=== PATIENT | male | born 1995 | race American Indian/Alaskan Native ===

== ENCOUNTER 2016-10-02 17:46 | Emergency (ER) | payer OTHER ==
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
[2016-10-03] MEDS ORDERED: NACL 0.9% 250ML 250 ML IV ONE (03:48)
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
[2016-10-03] MEDS ORDERED: TYLENOL #3 PO ONE (04:34)
[2016-10-03 05:16] VITALS: BP 145/86
[2016-10-03 05:45] LABS: Bilirubin,Urine NEG (Negative); Blood,Urine NEG (Negative); Ketones,Urine 20 mg/dL (Negative); Leukocyte Esterase,Urine NEG (Negative); Nitrite,Urine NEG (Negative); Protein,Urine <15 mg/dL mg/dL (Negative); Urobilinogen,Urine < 2.0 mg/dL (<2.0)
[2016-10-03 06:52] LABS: Basophils % (Auto) 0.5 % (0.0-1.8); Eosinophils % (Auto) 3.6 % (0.0-4.3); Hematocrit 47.1 % (35.5-45.6); Hemoglobin 15.5 gm/dl (11.8-15.2); Mean Corpuscular HGB Conc 33 % (32-34); Mean Corpuscular Hemoglobin 29 pg (28-32); Mean Corpuscular Volume 89 fl (84-94); Platelet Count 186 K/mm3 (140-440); Red Blood Count 5.33 M/mm3 (3.65-5.03); Red Cell Distribution Width 14.2 % (13.2-15.2); White Blood Count 6.9 K/mm3 (4.5-11.0)
[2016-10-03 06:54] LABS: Anion Gap 17 mmol/L; B-Hydroxybutyrate 10.7 mg/dL (0.2-2.8); BUN/Creatinine Ratio 14.28; Blood Urea Nitrogen 10 mg/dL (9-20); Calcium 8.4 mg/dL (8.4-10.2); Carbon Dioxide 25 mmol/L (22-30); Chloride 92.6 mmol/L (98-107); Glucose 401 mg/dL (75-100); Potassium 4.4 mmol/L (3.6-5.0); Sodium 130 mmol/L (137-145)
== END 2016-10-03 07:08 | disposition home or self-care (01) ==
LOC: ED 17:46
DX: S16.1XXA Strain of muscle, fascia and tendon at neck level, initial encounter (principal); S20.219A Contusion of unspecified front wall of thorax, initial encounter; E10.9 Type 1 diabetes mellitus without complications; F17.200 Nicotine dependence, unspecified, uncomplicated; Z79.4 Long term (current) use of insulin; V47.5XXA Car driver injured in collision with fixed or stationary object in traffic accident, initial encounter; Y93.89 Activity, other specified; Y99.8 Other external cause status; Y92.89 Other specified places as the place of occurrence of the external cause
CPT/HCPCS: 36415; 71020; 80048; 81001; 82010; 82805; 82962; 85025; 93005; 93010; 96372; 99284; J7050; J1815

== ENCOUNTER 2021-07-10 21:14 | Inpatient (IN) | payer SELFPAY ==
[2021-07-10] MEDS ORDERED: HALOPERIDOL LACTATE 5 MG/1 ML INJ IM PRN (21:21)
[2021-07-10] MEDS ORDERED: LORazepam 2 MG/ML VIAL IM PRN (21:21)
--- NOTE | 2021-07-10 21:22 | Emergency Department Report ---
ED General Adult HPI - General Chief complaint: Alcohol Stated complaint: ETOH Time Seen by Provider: 07/10/21 21:20 Source: patient, EMS (Verbal report received from emergency medical services. EMS documentation not available at time of chart dictation ), RN notes reviewed, old records reviewed Mode of arrival: Stretcher Limitations: Altered Mental Status - History of Present Illness Initial comments: The patient was evaluated in the emergency department for symptoms described in the history of present illness. He/she was evaluated in the context of the global COVID-19 pandemic, which necessitated consideration that the patient might be at risk for infection with the virus that causes COVID-19. Institutional protocols and algorithms that pertain to the evaluation of patients at risk for COVID-19 are in a state of rapid change based on info rmation released by regulatory bodies including the CDC and federal and state organizations. These policies and algorithms were followed during the patient's care in the emergency department. Please note that these policies, procedures and recommendations changed on a rapid basis. The patient is a 25-year-old gentleman. He is brought to the hospital by emergency medical services with an EMS articulated complaint of altered mental status and alcohol intoxication. History obtained from EMS as the patient is intoxicated. EMS states that the patient is visiting from [facility], and he was found in the hallway, drunk. It is not known who contacted 911. EMS reports normal vital signs in the field, and normal Accu-Chek in the field. In the emergency room, initially, the patient is awake, but intoxicated, belligerent, and uncooperative. The patient does not have decision-making capac ity. We attempted to try to de-escalate the patient verbally, and through show force. This is unsuccessful. Patient required medication with haloperidol and Ativan to allow for acquisition of time sensitive diagnostics, to exclude intracranial injury, and cervical spine injury, as as well as to exclude toxicologic ingestions that would be time sensitive. In spite of receiving haloperidol and Ativan, patient remained agitated, belligerent, and was pulling off leads, pulling off monitor strips, and presented in obvious danger to himself and other people. He is therefore medicated with Geodon. After receiving Geodon, the patient still continued to wrestle with the monitor strips, pull off leads, and also began to desaturate. He was therefore emergently intubated by myself using RSI techniques. Please see my intubation note. Shortly after intubation, after paralysis wore off, patient became very agitated, pulling, tugging, and disconnected his ET tube from the ventilator circuit. He was emergently medicated with 200 mg of propofol in total, appropriately sedated, repeat beta laryngoscopy is performed, and confirms appropriate placement of endotracheal tube. Patient now intubated, sedated, in no acute distress. The patient is not accompanied by a friend or family at this time for collateral information or additional information. -: This evening - Related Data Previous Rx's Medication Instructions Recorded Last Taken Type Insulin NPH/Regular [NovoLIN 70/30] 25 unit SUB-Q BIDDIAB 30 Days 09/12/16 Unknown Rx units Cyclobenzaprine [Flexeril] 10 mg PO TID PRN #20 tablet 10/03/16 Unknown Rx HYDROcodone/APAP 5-325 [[place] 1 - 2 each PO Q6HR PRN #14 tablet 10/03/16 Unknown Rx 5/325] Ibuprofen [Motrin] 800 mg PO Q8HR PRN #30 tablet 10/03/16 Unknown Rx Allergies Allergy/AdvReac Type Severity Reaction Status Date / Time No Known Allergies Allergy Verified 07/10/21 21:31 ED Review of Systems ROS: Stated complaint: ETOH Other details as noted in HPI Comment: Unobtainable due to pts medical conditions ED Past Medical Hx - Past Medical History Hx Congestive Heart Failure: No Hx Diabetes: Yes Hx Asthma: No Hx COPD: No - Social History Smoking Status: Current Every Day Smoker - Medications Home Medications: Home Medications Medication Instructions Recorded Confirmed Last Taken Type Insulin NPH/Regular [NovoLIN 70/30] 25 unit SUB-Q BIDDIAB 30 Days 09/12/16 Unknown Rx units Cyclobenzaprine [Flexeril] 10 mg PO TID PRN #20 tablet 10/03/16 Unknown Rx HYDROcodone/APAP 5-325 [[place] 1 - 2 each PO Q6HR PRN #14 tablet 10/03/16 Unkno wn Rx 5/325] Ibuprofen [Motrin] 800 mg PO Q8HR PRN #30 tablet 10/03/16 Unknown Rx ED Physical Exam - General Limitations: Altered Mental Status, Other (Intoxication) General appearance: appears intoxicated, anxious - Head Head exam: Present: atraumatic, normocephalic - Eye Eye exam: Present: normal appearance, EOMI. Absent: nystagmus - ENT ENT exam: Present: normal exam, normal orophraynx, mucous membranes moist, normal external ear exam, other (Copious secretions noted in the oropharynx) - Neck Neck exam: Present: normal inspection, full ROM. Absent: tenderness, meningismus - Respiratory Respiratory exam: Present: rhonchi. Absent: wheezes, rales, stridor - Cardiovascular Cardiovascular Exam: Present: normal rhythm, tachycardia, normal heart sounds. Absent: bradycardia, irregular rhythm, systolic murmur, diastolic murmur, rubs, gallop - GI/Abdominal GI/Abdominal exam: Present: soft. Absent: distended, tenderness, guarding, rebound, rigid, pulsatile mass - Rectal Rectal exam: Present: deferred - Extremities Exam Extremities exam: Present: normal inspection, full ROM, normal capillary refill, other (2+ pulses noted in the bilateral upper and lower extremities. There is no palpable cord. negative Homans sign. Muscular compartments are soft. The pelvis is stable.). Absent: pedal edema, calf tenderness - Back Exam Back exam: Present: normal inspection. Absent: tenderness, CVA tenderness (R), CVA tenderness (L), paraspinal tenderness, vertebral tenderness - Neurological Exam Neurological exam: Present: altered, other (Patient is awake, agitated, yelling and screaming, moving 4 extremities, pulling off monitor leads, blood pressure cuff and pulse ox.) - Psychiatric Psychiatric exam: Present: agitated, anxious - Skin Skin exam: Present: warm, dry, intact, normal color. Absent: rash ED Course Vital Signs 07/10/21 07/10/21 07/10/21 22:30 22:45 23:00 Temperature Pulse Rate 110 H 117 H Respiratory 24 32 H Rate Blood Pressure 139/68 143/68 134/71 O2 Sat by Pulse 95 86 Oximetry 07/10/21 07/10/21 07/10/21 23:15 23:31 23:35 Temperature 97.7 F Pulse Rate 101 H 106 H Respiratory 34 H 15 Rate Blood Pressure 151/79 144/79 O2 Sat by Pulse 88 98 Oximetry 07/10/21 07/11/21 07/11/21 23:45 00:00 00:15 Temperature Pulse Rate 97 H 96 H 92 H Respiratory 24 24 24 Rate Blood Pressure 142/73 142/73 155/88 O2 Sat by Pulse 98 98 96 Oximetry 07/11/21 07/11/21 07/11/21 00:45 01:00 01:15 Temperature Pulse Rate 100 H 103 H 96 H Respiratory 24 24 24 Rate Blood Pressure 142/73 76/34 98/41 O2 Sat by Pulse 95 96 Oximetry 07/11/21 07/11/21 07/11/21 01:43 01:45 02:01 Temperature Pulse Rate 84 85 95 H Respiratory 12 12 Rate Blood Pressure 98/41 108/46 98/41 O2 Sat by Pulse 98 96 95 Oximetry 07/11/21 07/11/21 07/11/21 02:15 02:31 02:45 Temperature Pulse Rate 90 86 85 Respiratory 22 22 22 Rate Blood Pressure 102/48 112/53 108/54 O2 Sat by Pulse 95 98 99 Oximetry 07/11/21 07/11/21 07/11/21 03:01 03:15 03:31 Temperature Pulse Rate 84 82 83 Respiratory 22 22 22 Rate Blood Pressure 114/57 105/47 110/50 O2 Sat by Pulse 99 99 99 Oximetry 07/11/21 07/11/21 07/11/21 03:45 04:00 04:01 Temperature Pulse Rate 82 83 82 Respiratory 22 22 Rate Blood Pressure 101/46 110/50 99/43 O2 Sat by Pulse 99 99 100 Oximetry 07/11/21 07/11/21 07/11/21 04:15 04:31 04:45 Temperature Pulse Rate 81 82 81 Respiratory 22 22 22 Rate Blood Pressure 98/45 96/49 98/48 O2 Sat by Pulse 100 100 100 Oximetry 07/11/21 07/11/21 07/11/21 05:01 05:15 05:45 Temperature Pulse Rate 80 80 81 Respiratory 22 22 22 Rate Blood Pressure 108/54 106/49 114/63 O2 Sat by Pulse 100 100 100 Oximetry 07/11/21 07/11/21 07/11/21 06:01 06:15 06:31 Temperature Pulse Rate 82 80 80 Respiratory 22 22 22 Rate Blood Pressure 107/64 105/56 101/53 O2 Sat by Pulse 100 100 100 Oximetry 07/11/21 07/11/21 07/11/21 07:01 07:15 07:31 Temperature Pulse Rate 80 80 80 Respiratory 22 22 22 Rate Blood Pressure 102/49 104/51 103/52 O2 Sat by Pulse 100 100 100 Oximetry 07/11/21 07/11/21 07/11/21 07:45 08:01 08:15 Temperature Pulse Rate 79 78 80 Respiratory 22 22 22 Rate Blood Pressure 102/47 101/50 101/49 O2 Sat by Pulse 98 100 99 Oximetry 07/11/21 07/11/21 07/11/21 08:31 08:45 09:01 Temperature 97.7 F Pulse Rate 78 84 88 Respiratory 22 23 22 Rate Blood Pressure 105/52 103/46 119/55 O2 Sat by Pulse 99 98 95 Oximetry 07/11/21 07/11/21 09:21 10:00 Temperature Pulse Rate 78 88 Respiratory 22 Rate Blood Pressure 105/52 107/46 O2 Sat by Pulse 98 97 Oximetry - ABG Interpretation Ph: 7.381 PCO2: 30.4 PO2: 213 Bicarbonate: 17.6 Interpretation: abnormal, metabolic acidosis (Metabolic acidosis with respiratory compensation) - Intubation Time Out Performed: No (Emergency situation) Sedative: Etomidate Mg Given: 20 Paralytic: Rocuronium Mg Given: 100 Laryngoscope: fiberoptic video scope Size: 4 ET Tube Size: 7.5 Tube Secured Depth (cm): 23 Tube Secured Location: teeth Tube Placement Confirmation: visualized tube passing t, equal breath sounds bilat, no breath sounds over epi, confirmation by capnometr Patient Tolerated Procedure: well Intubation Complications: none ED Medical Decision Making - Lab Data Result diagrams: 07/12/21 04:25 07/12/21 04:25 Vital Signs 07/10/21 07/10/21 07/10/21 22:30 22:45 23:45 Pulse Rate 110 H 117 H 102 H Respiratory 26 H 32 H Rate Blood Pressure 139/68 143/68 101/56 O2 Sat by Pulse 96 Oximetry Lab Results 07/10/21 07/10/21 07/10/21 Range/Units 23:38 23:38 23:38 WBC 7.9 (4.5-11.0) K/mm3 RBC 5.19 H (3.65-5.03) M/mm3 Hgb 15.2 (11.8-15.2) gm/dl Hct 45.6 (35.5-45.6) % MCV 88 (84-94) fl MCH 29 (28-32) pg MCHC 33 (32-34) % RDW 14.0 (13.2-15.2) % Plt Count 271 (140-440) K/mm3 Lymph % (Auto) 37.8 H (13.4-35.0) % [place] % (Auto) 5.4 (0.0-7.3) % Eos % (Auto) 1.6 (0.0-4.3) % Baso % (Auto) 0.4 (0.0-1.8) % Lymph # (Auto) 3.0 (1.2-5.4) K/mm3 [place] # (Auto) 0.4 (0.0-0.8) K/mm3 Eos # (Auto) 0.1 (0.0-0.4) K/mm3 Baso # (Auto) 0.0 (0.0-0.1) K/mm3 Seg Neutrophils % 54.8 (40.0-70.0) % Seg Neutrophils # 4.3 (1.8-7.7) K/mm3 PT 13.0 (12.2-14.9) Sec. INR 0.88 (0.87-1.13) Sodium 141 (137-145) mmol/L Potassium 3.3 L (3.6-5.0) mmol/L Chloride 102.8 (98-107) mmol/L Carbon Dioxide 24 (22-30) mmol/L Anion Gap 18 mmol/L BUN 13 (9-20) mg/dL Creatinine 0.7 L (0.8-1.3) mg/dL Estimated GFR > 60 ml/min BUN/Creatinine Ratio 19 % Glucose 50 L (75-100) mg/dL Calcium 8.6 (8.4-10.2) mg/dL Magnesium 1.90 (1.7-2.3) mg/dL Total Bilirubin 0.40 (0.1-1.2) mg/dL AST 44 H (5-40) units/L ALT 28 (7-56) units/L Alkaline Phosphatase 95 (35-129) units/L Total Creatine Kinase 1282 H (55-170) units/L Total Protein 7.1 (6.3-8.2) g/dL Albumin 4.4 (3.9-5) g/dL Albumin/Globulin Ratio 1.6 % Lipase 13 (13-60) units/L Salicylates (2.8-20.0) mg/dL Acetaminophen (10.0-30.0) ug/mL Plasma/Serum Alcohol (0-0.07) % 07/10/21 07/10/21 07/10/21 Range/Units 23:38 23:38 23:38 WBC (4.5-11.0) K/mm3 RBC (3.65-5.03) M/mm3 Hgb (11.8-15.2) gm/dl Hct (35.5-45.6) % MCV (84-94) fl MCH (28-32) pg MCHC (32-34) % RDW (13.2-15.2) % Plt Count (140-440) K/mm3 Lymph % (Auto) (13.4-35.0) % [place] % (Auto) (0.0-7.3) % Eos % (Auto) (0.0-4.3) % Baso % (Auto) (0.0-1.8) % Lymph # (Auto) (1.2-5.4) K/mm3 [place] # (Auto) (0.0-0.8) K/mm3 Eos # (Auto) (0.0-0.4) K/mm3 Baso # (Auto) (0.0-0.1) K/mm3 Seg Neutrophils % (40.0-70.0) % Seg Neutrophils # (1.8-7.7) K/mm3 PT (12.2-14.9) Sec. INR (0.87-1.13) Sodium (137-145) mmol/L Potassium (3.6-5.0) mmol/L Chloride (98-107) mmol/L Carbon Dioxide (22-30) mmol/L Anion Gap mmol/L BUN (9-20) mg/dL Creatinine (0.8-1.3) mg/dL Estimated GFR ml/min BUN/Creatinine Ratio % Glucose (75-100) mg/dL Calcium (8.4-10.2) mg/dL Magnesium (1.7-2.3) mg/dL Total Bilirubin (0.1-1.2) mg/dL AST (5-40) units/L ALT (7-56) units/L Alkaline Phosphatase (35-129) units/L Total Creatine Kinase (55-170) units/L Total Protein (6.3-8.2) g/dL Albumin (3.9-5) g/dL Albumin/Globulin Ratio % Lipase (13-60) units/L Salicylates < 0.3 L (2.8-20.0) mg/dL Acetaminophen 5.0 L (10.0-30.0) ug/mL Plasma/Serum Alcohol 0.34 H (0-0.07) % - EKG Data -: EKG Interpreted by Md EKG shows normal: sinus rhythm - EKG Data 07/11/21 02:16 EKG is interpreted at 22: 23 Sinus rhythm, tachycardia, normal axis, normal P wave axis, rate 109 bpm. QTC prolonged, 470 ms. High left ventricular voltage. Abnormal EKG. Not a STEMI. - Radiology Data Radiology results: report reviewed, image reviewed CHEST 1 VIEW 07/10/2021 10:43 PM INDICATION / CLINICAL INFORMATION: post intubation. COMPARISON: None available. FINDINGS: SUPPORT DEVICES: NG tube extends within the stomach ET tube is satisfactory in position HEART / MEDIASTINUM: No significant abnormality. LUNGS / PLEURA: Mild increased interstitial prominence and opacities in bilateral lungs No pneumothorax. Signer Name: Huseyin Soto MD Signed: 07/10/2021 10:51 PM Workstation Name: [id number] CHEST 1 VIEW 07/10/2021 10:43 PM INDICATION / CLINICAL INFORMATION: post intubation. COMPARISON: None available. FINDINGS: SUPPORT DEVICES: NG tube extends within the stomach ET tube is satisfactory in position HEART / MEDIASTINUM: No significant abnormality. LUNGS / PLEURA: Mild increased int erstitial prominence and opacities in bilateral lungs No pneumothorax. Signer Name: Huseyin Soto MD Signed: 07/10/2021 10:51 PM Workstation Name: [id number] CT cervical spine wo con, CT head/brain wo con INDICATION / CLINICAL INFORMATION: Alcohol Intoxication. TECHNIQUE: Axial, coronal and sagittal images All CT scans at this location are performed using CT dose reduction for ALARA by means of automated exposure control. COMPARISON: None available. FINDINGS: Head: There is right frontal scalp hematoma. No acute intracranial hemorrhage. No midline shift or mass effect. No extra-axial fluid collection is seen. Ventricles are normal in size and appearance. Orbital globes appear int act. There is ethmoid sinus disease. No acute fracture is seen. Visualized orbits appear normal. Cervical spine: Cervical spine alignment appears normal. Facets are well aligned throughout. No prevertebral soft tissue swelling is seen. Odontoid and skull base appear normal. IMPRESSION: 1. No acute findings are seen in the cervical spine. 2. Small frontal scalp hematoma. No acute intracranial hemorrhage. No acute fracture. Signer Name: Huseyin Soto MD Signed: 07/11/2021 12:53 AM Workstation Name: [id number] - Medical Decision Making Differential diagnosis, including but not limited to: Alcohol intoxication, cervical spine injury, intracranial injury, aspiration pneumonia/pneumonitis, hypoglycemia, electrolyte derangement, rhabdomyolysis Assessment and plan: 25-year-old gentleman, presenting with alcohol intoxication, belligerent, uncooperative and violent behavior, requiring medication with haloperidol, Ativan, and subsequently Geodon. Patient subse quently required intubation for airway protection. Laboratory studies remarkable for elevated blood alcohol level, rhabdomyolysis with elevated CK, and glucose of 50, as well as hypokalemia. Noncontrast CT scan of the brain and cervical spine showed no acute findings. X-ray of the chest suggests aspiration pneumonia/pneumonitis. Patient is placed on D5 half-normal, with Accu-Cheks every 1 hour. He will be medicated empirically with fluids, potassium supplementation, banana bag, ceftriaxone and azithromycin. He will require supportive care. Contacted critical care physician on-call, Dr. COLVIN, As well as hospital physician, Dr. Maury Montaño Discussed the patient's history, physical, laboratory studies, imaging studies, clinical impression, and recommended course of action. The aforementioned critical care physician agrees with placement to the intensive care unit. The aforementioned hospital physician agrees to admit this patient to the medical service. At the moment, the patient is not accompanied by friends or family at this time for additional information and collateral information. Critical Care Time: Yes Critical care time in (mins) excluding proc time.: 60 Critical care attestation.: If time is entered above; I have spent that time in minutes in the direct care of this critically ill patient, excluding procedure time. ED Disposition Clinical Impression: Acute alcohol intoxication, Closed head injury, Alcohol abuse, Hypokalemia, Hypoglycemia, Elevated CK Disposition: 09 ADMITTED INPATIENT Is pt being admited?: Yes Does the pt Need Aspirin: No Condition: Critical
[2021-07-10] MEDS ORDERED: ZIPRASIDONE MESYLATE 20 MG VIAL IM PRN (21:53)
[2021-07-10] MEDS ORDERED: ROCURONIUM 50 MG/5 ML INJ IV ONE ×3 (23:16→23:47)
[2021-07-10] MEDS ORDERED: ETOMIDATE 20 MG/10 ML INJ IV ONE ×2 (23:16→23:47)
[2021-07-10] MEDS ORDERED: fentaNYL DRIP Premix 2,000 MCG/100 ML BAG IV SCH (23:45)
[2021-07-10] MEDS ORDERED: LIP THERAPY VASELINE TP PRN (23:46)
[2021-07-10] MEDS ORDERED: fentaNYL 100 MCG/2 ML INJ IV PRN (23:46)
[2021-07-10] MEDS ORDERED: MINERAL OIL/PETROLATUM, WHITE OPHTH OINT 3.5 GM OU PRN (23:46)
[2021-07-10] MEDS ORDERED: LACTATED RINGERS 1,000 ML IV ONE (23:47)
[2021-07-10 23:52] LABS: Basophils % (Auto) 0.4 % (0.0-1.8); Eosinophils # (Auto) 0.1 K/mm3 (0.0-0.4); Eosinophils % (Auto) 1.6 % (0.0-4.3); Hematocrit 45.6 % (35.5-45.6); Hemoglobin 15.2 gm/dl (11.8-15.2); Lymphocytes % (Auto) 37.8 % (13.4-35.0); Mean Corpuscular HGB Conc 33 % (32-34); Mean Corpuscular Volume 88 fl (84-94); Monocytes # (Auto) 0.4 K/mm3 (0.0-0.8); Monocytes % (Auto) 5.4 % (0.0-7.3); Platelet Count 271 K/mm3 (140-440); Red Blood Count 5.19 M/mm3 (3.65-5.03)
--- NOTE | 2021-07-10 23:55 | XRay Report ---
CHEST 1 VIEW 07/10/2021 10:43 PM INDICATION / CLINICAL INFORMATION: post intubation. COMPARISON: None available. FINDINGS: SUPPORT DEVICES: NG tube extends within the stomach ET tube is satisfactory in position HEART / MEDIASTINUM: No significant abnormality. LUNGS / PLEURA: Mild increased interstitial prominence and opacities in bilateral lungs No pneumothor ax. Signer Name: Huseyin Soto MD Signed: 07/10/2021 11:51 PM Workstation Name: [id number]
[2021-07-11 00:04] LABS: INR 0.88 (0.87-1.13)
[2021-07-11 00:18] LABS: Alanine Aminotransferase 28 units/L (7-56); Albumin 4.4 g/dL (3.9-5); Blood Urea Nitrogen 13 mg/dL (9-20); Calcium 8.6 mg/dL (8.4-10.2); Hemolysis Index 40
[2021-07-11 00:20] LABS: BUN/Creatinine Ratio 19
[2021-07-11] MEDS ORDERED: propofoL 200 MG/20 ML VIAL IV ONE ×2 (00:26→00:34)
[2021-07-11] MEDS ORDERED: ETOMIDATE 20 MG/10 ML INJ IV ONE (00:27)
[2021-07-11] MEDS ORDERED: ROCURONIUM 50 MG/5 ML INJ IV ONE (00:28)
[2021-07-11] MEDS ORDERED: LACTATED RINGERS 1,000 ML IV ONE (00:34)
[2021-07-11] MEDS ORDERED: KETAMINE 500 MG/5 ML VIAL MDV IV ONE (00:34)
--- NOTE | 2021-07-11 01:11 | XRay Report ---
CHEST 1 VIEW 07/11/2021 12:01 AM INDICATION / CLINICAL INFORMATION: s/p ett repositioning. COMPARISON: None available. FINDINGS: ET tube tip is about 5 cm above the jone. Mild increased pulmonary vascularity Signer Name: Huseyin Soto MD Signed: 07/11/2021 1:07 AM Workstation Name: [id number]
[2021-07-11] MEDS ORDERED: DEXTROSE 50% IN WATER (25GM) 50 ML SYRINGE IV ONE (01:15)
[2021-07-11] MEDS ORDERED: DEXTROSE 50% IN WATER (25GM) 50 ML SYRINGE IV PRN (01:15)
--- NOTE | 2021-07-11 01:57 | Cat Scan Report ---
CT cervical spine wo con, CT head/brain wo con INDICATION / CLINICAL INFORMATION: Alcohol Intoxication. TECHNIQUE: Axial, coronal and sagittal images All CT scans at this location are performed using CT dose reductio n for ALARA by means of automated exposure control. COMPARISON: None available. FINDINGS: Head: There is right frontal scalp hematoma. No acute intracranial hemorrhage. No midline shift or mass eff ect. No extra-axial fluid collection is seen. Ventricles are normal in size and appearance. Orbital g lobes appear intact. There is ethmoid sinus disease. No acute fracture is seen. Visualized orbits huber ear normal. Cervical spine: Cervical spine alignment appears normal. Facets are well aligned throughout. No prevertebral soft tis juan antonio swelling is seen. Odontoid and skull base appear normal. IMPRESSION: 1. No acute findings are seen in the cervical spine. 2. Small frontal scalp hematoma. No acute intracranial hemorrhage. No acute fracture. Signer Name: Huseyin Soto MD Signed: 07/11/2021 1:53 AM Workstation Name: [id number]
[2021-07-11] MEDS: POTASSIUM CHLORIDE 10 MEQ 10 MEQ/100 ML BAG IV SCH ×4 (02:08→05:44)
[2021-07-11] MEDS ORDERED: AZITHROMYCIN/NS 500 MG/250 ML 500 MG/250 ML BAG IV ONE (02:09)
[2021-07-11] MEDS ORDERED: THIAMINE 100 MG, FOLIC ACID 1 MG, MULTIPLE VITAMIN INJ, ADULT 10 ML in SODIUM CHLORIDE ... IV ONE (02:09)
[2021-07-11] MEDS: D5W/0.45% NACL 1,000 ML IV SCH ×3 (02:19→14:42)
[2021-07-11] MEDS: cefTRIAXone/NS 1 GM/50 ML 1 GM/50 ML BAG IV ONE ×2 (02:38→02:44)
[2021-07-11 02:58] LABS: Bilirubin,Urine NEG (Negative); Blood,Urine SM (Negative); Color,Urine Yellow (Yellow); Mucus,Urine FEW /HPF; Protein,Urine <15 mg/dL mg/dL (Negative); RBC,Urine < 1.0 /HPF (0.0-6.0); Urobilinogen,Urine < 2.0 mg/dL (<2.0); WBC,Urine < 1.0 /HPF (0.0-6.0)
[2021-07-11] MEDS ORDERED: ACETAMINOPHEN 650 MG RECT SUPP PR PRN (02:58)
[2021-07-11] MEDS ORDERED: MORPHINE 4 MG/1 ML INJ IV PRN (02:58)
[2021-07-11] MEDS ORDERED: MAGNESIUM HYDROXIDE (MOM) ORAL LIQD UDC PO PRN (02:58)
[2021-07-11] MEDS ORDERED: ONDANSETRON 4 MG/2 ML INJ IV PRN (02:58)
[2021-07-11 03:06] LABS: Amphetamine Screen,Urine Negative; Benzodiazepines Screen,Urine Negative; Cocaine Screen,Urine Negative; Methadone Screen,Urine Negative; Opiate Screen,Urine Negative
--- NOTE | 2021-07-11 03:15 | History and Physical Report ---
History of Present Illness Date of examination: 07/11/21 Date of admission: 07/11/2021 Chief complaint: Altered mental status History of present illness: 25-year-old -[place]ian male brought into the emergency room by EMS in a for altered mental status and alcohol intoxication. Most of the history was obtained from the ER staff as patient has already been intubated. According to EMS patient was said to have been visiting from [facility] and he was found in the hallway drunk. Upon arrival in the emergency room he was found to be intoxicated, belligerent and uncooperative. He was given some Haldol and Ativan. He however started desaturating upon receiving Haldol, Ativan and subsequently Geodon. Patient was subsequently intubated. Work-up in the emergency room reveals elevated creatinine kinase and patient was also found to be hypoglycemic with blood glucose of about 50. Potassium level of 3.3. Chest x-ray reveals mild increased interstitial prominence and opacities in bilateral lungs. CT scan of the head reveals small frontal scalp hematoma no acute intracranial hemorrhage. CT scan of the thoracic spine was unremarkable. No family members were available during this history and physical. Past History Past Medical History: diabetes Social history: smoking (Current daily smoker) Family history: no significant family history Medications and Allergies Allergies Allergy/AdvReac Type Severity Reaction Status Date / Time No Known Allergies Allergy Verified 07/10/21 21:31 Home Medications Medication Instructions Recorded Confirmed Last Taken Type Insulin NPH/Regular [NovoLIN 70/30] 25 unit SUB-Q BIDDIAB 30 Days 09/12/16 Unknown Rx units Cyclobenzaprine [Flexeril] 10 mg PO TID PRN #20 tablet 10/03/16 Unknown Rx HYDROcodone/APAP 5-325 [[place] 1 - 2 each PO Q6HR PRN #14 tablet 10/03/16 Unknown Rx 5/325] Ibuprofen [Motrin] 800 mg PO Q8HR PRN #30 tablet 10/03/16 Unknown Rx Active Meds: Active Medications Acetaminophen (Acetaminophen 650 Mg Rect Supp) 650 mg DC Q6H PRN PRN Reason: Pain MILD(1-3)/Fever >100.5/HERRON Dextrose (Dextrose 50% In Water (25gm) 50 Ml Syringe) 50 ml IV Q30MIN PRN; Protocol PRN Reason: Hypoglycemia Enoxaparin Sodium (Enoxaparin 40 Mg/0.4 Ml Inj) 40 mg SUB-Q QDAY@2200 LENORA; Pr otocol Famotidine (Famotidine 20 Mg/2 Ml Inj) 20 mg IV BID LENORA Fentanyl (Fentanyl 100 Mcg/2 Ml Inj) 50 mcg IV Q10MIN PRN PRN Reason: ANALGESIA Haloperidol Lactate (Haloperidol Lactate 5 Mg/1 Ml Inj) 5 mg IM Q6HR PRN PRN Reason: Agitation Last Admin: 07/10/21 21:36 Dose: 5 mg Documented by: Hydrophilic Ointment (Lip Therapy Vaseline) 1 applic TP Q2HR PRN PRN Reason: Dry Lips Fentanyl Citrate (Fentanyl Drip Premix) 2,000 mcg in 100 mls @ 4.082 mls/hr IV TITR LENORA; Protocol Last Admin: 07/11/21 00:36 Dose: 1 mcg/kg/hr, 4.082 mls/hr Documented by: Propofol (Diprivan 10 Mg/Ml) 1,000 mg in 100 mls @ 2.449 mls/hr IV TITR LENORA; Protocol Last Admin: 07/11/21 00:14 Dose: 5 mcg/kg/min, 2.449 mls/hr Documented by: Potassium Chloride (Kcl 10meq/100ml) 10 meq in 100 mls @ 100 mls/hr IV Q1H LENORA Stop: 07/11/21 04:59 Last Admin: 07/11/21 02:08 Dose: 100 mls/hr Documented by: Dextrose/Sodium Chloride (D5/0.45ns) 1,000 mls @ 150 mls/hr IV DIRECT LENORA Last Admin: 07/11/21 02:19 Dose: 150 mls/hr Documented by: Thiamine HCl 100 mg/ Folic Acid 1 mg/ Multivitamins/Minerals 10 ml/ Sodium Chloride 1,011.2 mls @ 250 mls/hr IV ONCE ONE Stop: 07/11/21 06:11 Ceftriaxone Sodium (Rocephin/Ns 2 Gm/100 Ml) 2 gm in 100 mls @ 200 mls/hr IV Q24H LENORA; Protocol Azithromycin (Zithromax/Ns) 500 mg in 250 mls @ 250 mls/hr IV Q24H LENORA; Protocol Lorazepam (Lorazepam 2 Mg/Ml Vial) 2 mg IM Q4HR PRN PRN Reason: Agitation Last Admin: 07/10/21 21:35 Dose: 2 mg Documented by: Magnesium Hydroxide (Magnesium Hydroxide (Mom) Oral Liqd Udc) 30 ml PO Q4H PRN PRN Reason: Constipation Morphine Sulfate (Morphine 2 Mg/1 Ml Inj) 2 mg IV Q4H PRN PRN Reason: Pain, Moderate (4-6) Morphine Sulfate (Morphine 4 Mg/1 Ml Inj) 4 mg IV Q4H PRN PRN Reason: Pain , Severe (7-10) Multi-Ingred Cream/Lotion/Oil/Oint (Mineral Oil/Petrolatum, White Ophth Oint 3.5 Gm) 1 applic OU Q4HR PRN PRN Reason: Dry Eye(s) Ondansetron HCl (Ondansetron 4 Mg/2 Ml Inj) 4 mg IV Q8H PRN PRN Reason: Nausea And Vomiting Senna/Docusate Sodium (Sennosides/Docusate Sodium 8.6/50 Mg Tab) 1 tab FEEDTUBE BID LENORA Sodium Chloride (Sodium Chloride 0.9% 10 Ml Flush Syringe) 10 ml IV BID LENORA Sodium Chloride (Sodium Chloride 0.9% 10 Ml Flush Syringe) 10 ml IV PRN PRN PRN Reason: LINE FLUSH Ziprasidone (Ziprasidone Mesylate 20 Mg Vial) 10 mg IM Q2H PRN PRN Reason: Agitation Last Admin: 07/10/21 22:05 Dose: 10 mg Documented by: Review of Systems ROS unobtainable: due to endotracheal tube Exam - Constitutional Vitals: Temp Pulse Resp BP Pulse Ox 86 22 112/53 98 07/11/21 02:31 07/11/21 02:31 07/11/21 02:31 07/11/21 02:31 General appearance: Present: well-nourished, other (Intubated and sedated) - EENT Eyes: Present: PERRL, EOM intact. Absent: scleral icterus ENT: hearing intact, clear oral mucosa, dentition normal - Neck Neck: Present: supple, normal ROM - Respiratory Respiratory effort: other (Intubated) Respiratory: bilateral: other (Coarse breath sounds bilaterally) - Cardiovascular Rhythm: regular Heart Sounds: Present: S1 & S2. Absent: gallop, systolic murmur, diastolic murmur, rub, click - Extremities Extremities: no ischemia, pulses intact, pulses symmetrical, No edema, normal temperature, normal color, Full ROM Peripheral Pulses: within normal limits - Abdominal General gastrointestinal: Present: soft, non-tender, non-distended, normal bowel sounds. Absent: mass - Integumentary Integumentary: Present: clear, warm, dry, normal turgor. Absent: rash - Musculoskeletal Musculoskeletal: strength equal bilaterally - Psychiatric Psychiatric: cooperative - Neurologic Neurologic: CNII-XII intact, no focal deficits, other (Currently intubated and sedated) Results - Labs CBC & Chem 7: 07/10/21 23:38 07/10/21 23:38 Labs: Abnormal lab results 07/10/21 07/10/21 07/10/21 Range/Units 23:38 23:38 23:38 RBC 5.19 H (3.65-5.03) M/mm3 Lymph % (Auto) 37.8 H (13.4-35.0) % Potassium 3.3 L (3.6-5.0) mmol/L Creatinine 0.7 L (0.8-1.3) mg/dL Glucose 50 L (75-100) mg/dL POC Glucose (70-105) mg/dL AST 44 H (5-40) units/L Total Creatine Kinase 1282 H (55-170) units/L Salicylates (2.8-20.0) mg/dL Acetaminophen (10.0-30.0) ug/mL Plasma/Serum Alcohol 0.34 H (0-0.07) % 07/10/21 07/10/21 07/11/21 Range/Units 23:38 23:38 03:08 RBC (3.65-5.03) M/mm3 Lymph % (Auto) (13.4-35.0) % Potassium (3.6-5.0) mmol/L Creatinine (0.8-1.3) mg/dL Glucose (75-100) mg/dL POC Glucose 110 H (70-105) mg/dL AST (5-40) units/L Total Creatine Kinase (55-170) units/L Salicylates < 0.3 L (2.8-20.0) mg/dL Acetaminophen 5.0 L (10.0-30.0) ug/mL Plasma/Serum Alcohol (0-0.07) % Assessment and Plan - Patient Problems (1) Acute alcohol intoxication Current Visit: Yes Status: Acute Plan to address problem: Patient currently intubated and sedated Placed on IV fluid. We also placed on alcohol withdrawal protocol. (2) Elevated CK Current Visit: Yes Status: Acute Plan to address problem: We will monitor CK level and continue IV fluid. (3) Hypoglycemia Current Visit: Yes Status: Acute Plan to address problem: Patient placed on dextrose IV fluid. Will monitor Accu-Cheks. (4) Hypokalemia Current Visit: Yes Status: Acute Plan to address problem: Potassium will be repleted. We will monitor chemistry. (5) Aspiration pneumonitis Current Visit: Yes Status: Acute Plan to address problem: Checks history suspicious for aspiration pneumonia . We will place on empiric IV antibiotics. (6) DVT prophylaxis Current Visit: Yes Status: Acute Plan to address problem: Patient placed on subcutaneous Lovenox. (7) Full code status Current Visit: Yes Status: Acute Plan to address problem: Patient is full code
[2021-07-11 03:18] LABS: Cannabinoid Screen,Urine Positive
[2021-07-11 09:43] LABS: Hematocrit 39.9 % (35.5-45.6); Hemoglobin 13.2 gm/dl (11.8-15.2); Mean Corpuscular HGB Conc 33 % (32-34); Mean Corpuscular Volume 89 fl (84-94); Platelet Count 216 K/mm3 (140-440); Red Blood Count 4.49 M/mm3 (3.65-5.03); Red Cell Distribution Width 14.4 % (13.2-15.2)
[2021-07-11 09:58] LABS: Alanine Aminotransferase 23 units/L (7-56); Albumin 3.4 g/dL (3.9-5); Blood Urea Nitrogen 10 mg/dL (9-20); Calcium 7.6 mg/dL (8.4-10.2); Hemolysis Index 56
[2021-07-11 10:00] LABS: BUN/Creatinine Ratio 17
--- NOTE | 2021-07-11 11:59 | Consultation ---
History of Present Illness Consult date: 07/11/21 Requesting physician: NATALIA HERNANDEZ Reason for consult: other (Acute Respiratroy Failure; Acute toxic / Metabolic Encephalopathy) History of present illness: PULMONARY/CCM CONSULT NOTE (Full dictation # [id number]) Please see dictated notes for full details Past History Past Medical History: diabetes Social history: smoking (Current daily smoker) Family history: no significant family history Medications and Allergies Allergies Allergy/AdvReac Type Severity Reaction Status Date / Time No Known Allergies Allergy Verified 07/10/21 21:31 Home Medications Medication Instructions Recorded Confirmed Last Taken Type Insulin NPH/Regular [NovoLIN 70/30] 25 unit SUB-Q BIDDIAB 30 Days 09/12/16 Unknown Rx units Cyclobenzaprine [Flexeril] 10 mg PO TID PRN #20 tablet 10/03/16 Unknown Rx HYDROcodone/APAP 5-325 [[place] 1 - 2 each PO Q6HR PRN #14 tablet 10/03/16 Unknown Rx 5/325] Ibuprofen [Motrin] 800 mg PO Q8HR PRN #30 tablet 10/03/16 Unknown Rx Active Meds: Active Medications Acetaminophen (Acetaminophen 650 Mg Rect Supp) 650 mg GA Q6H PRN PRN Reason: Pain MILD(1-3)/Fever >100.5/HERRON Dextrose (Dextrose 50% In Water (25gm) 50 Ml Syringe) 50 ml IV Q30MIN PRN; Prot ocol PRN Reason: Hypoglycemia Enoxaparin Sodium (Enoxaparin 40 Mg/0.4 Ml Inj) 40 mg SUB-Q QDAY@2200 LENORA; Protocol Famotidine (Famotidine 20 Mg/2 Ml Inj) 20 mg IV BID LENORA Fentanyl (Fentanyl 100 Mcg/2 Ml Inj) 50 mcg IV Q10MIN PRN PRN Reason: ANALGESIA Glycopyrrolate (Glycopyrrolate 0.4 Mg/2 Ml Inj) 0.2 mg IV ONCE@1200 LENORA Stop: 07/11/21 16:00 Haloperidol Lactate (Haloperidol Lactate 5 Mg/1 Ml Inj) 5 mg IM Q6HR PRN PRN Reason: Agitation Last Admin: 07/10/21 21:36 Dose: 5 mg Documented by: Hydrophilic Ointment (Lip Therapy Vaseline) 1 applic TP Q2HR PRN PRN Reason: Dry Lips Fentanyl Citrate (Fentanyl Drip Premix) 2,000 mcg in 100 mls @ 4.082 mls/hr IV TITR LENORA; Protocol Last Admin: 07/11/21 00:36 Dose: 1 mcg/kg/hr, 4.082 mls/hr Documented by: Propofol (Diprivan 10 Mg/Ml) 1,000 mg in 100 mls @ 2.449 mls/hr IV TITR LENORA; Protocol Last Titration: 07/11/21 10:45 Dose: 30 mcg/kg/min, 14.696 mls/hr Documented by: Dextrose/Sodium Chloride (D5/0.45ns) 1,000 mls @ 150 mls/hr IV DIRECT LENORA Last Admin: 07/11/21 08:01 Dose: 150 mls/hr Documented by: Ceftriaxone Sodium (Rocephin/Ns 2 Gm/100 Ml) 2 gm in 100 mls @ 200 mls/hr IV Q24H LENORA; Protocol Azithromycin (Zithromax/Ns) 500 mg in 250 mls @ 250 mls/hr IV Q24H LENORA; Protocol Lorazepam (Lorazepam 2 Mg/Ml Vial) 2 mg IM Q4HR PRN PRN Reason: Agitation Last Admin: 07/10/21 21:35 Dose: 2 mg Documented by: Magnesium Hydroxide (Magnesium Hydroxide (Mom) Oral Liqd Udc) 30 ml PO Q4H PRN PRN Reason: Constipation Morphine Sulfate (Morphine 2 Mg/1 Ml Inj) 2 mg IV Q4H PRN PRN Reason: Pain, Moderate (4-6) Morphine Sulfate (Morphine 4 Mg/1 Ml Inj) 4 mg IV Q4H PRN PRN Reason: Pain , Severe (7-10) Multi-Ingred Cream/Lotion/Oil/Oint (Mineral Oil/Petrolatum, White Ophth Oint 3.5 Gm) 1 applic OU Q4HR PRN PRN Reason: Dry Eye(s) Ondansetron HCl (Ondansetron 4 Mg/2 Ml Inj) 4 mg IV Q8H PRN PRN Reason: Nausea And Vomiting Senna/Docusate Sodium (Sennosides/Docusate Sodium 8.6/50 Mg Tab) 1 tab FEEDTUBE BID LENORA Sodium Chloride (Sodium Chloride 0.9% 10 Ml Flush Syringe) 10 ml IV BID LENORA Sodium Chloride (Sodium Chloride 0.9% 10 Ml Flush Syringe) 10 ml IV PRN PRN PRN Reason: LINE FLUSH Ziprasidone (Ziprasidone Mesylate 20 Mg Vial) 10 mg IM Q2H PRN PRN Reason: Agitation Last Admin: 07/10/21 22:05 Dose: 10 mg Documented by: Physical Examination Vital signs: Vital Signs Pulse Resp BP Pulse Ox 110 H 26 H 139/68 95 07/10/21 22:30 07/10/21 22:30 07/10/21 22:30 07/10/21 22:30 Results - Laboratory Findings CBC and BMP: 07/11/21 08:38 07/11/21 08:38 PT/INR, D-dimer PT 13.0 Sec. (12.2-14.9) 07/10/21 23:38 INR 0.88 (0.87-1.13) 07/10/21 23:38 Abnormal lab findings: Abnormal Labs 07/10/21 07/10/21 07/10/21 23:38 23:38 23:38 RBC 5.19 H Lymph % (Auto) 37.8 H Potassium 3.3 L Creatinine 0.7 L Glucose 50 L POC Glucose Lactic Acid Calcium AST 44 H Total Creatine Kinase 1282 H Total Protein Albumin Salicylates Acetaminophen Plasma/Serum Alcohol 0.34 H 07/10/21 07/10/21 07/11/21 23:38 23:38 02:43 RBC Lymph % (Auto) Potassium Creatinine Glucose POC Glucose Lactic Acid 3.60 H* Calcium AST Total Creatine Kinase Total Protein Albumin Salicylates < 0.3 L Acetaminophen 5.0 L Plasma/Serum Alcohol 07/11/21 07/11/21 07/11/21 03:08 04:57 08:38 RBC Lymph % (Auto) Potassium Creatinine Glucose POC Glucose 110 H Lactic Acid 3.40 H* 3.50 H* Calcium AST Total Creatine Kinase Total Protein Albumin Salicylates Acetaminophen Plasma/Serum Alcohol 07/11/21 07/11/21 07/11/21 08:38 10:18 11:28 RBC Lymph % (Auto) Potassium Creatinine 0.6 L Glucose POC Glucose 61 L Lactic Acid 3.60 H* Calcium 7.6 L AST 42 H Total Creatine Kinase Total Protein 6.0 L Albumin 3.4 L Salicylates Acetaminophen Plasma/Serum Alcohol
[2021-07-11] MEDS ORDERED: GLYCOPYRROLATE 0.4 MG/2 ML INJ IV SCH (12:00)
[2021-07-11] MEDS ORDERED: INSULIN LISPRO 100 UNIT/ML SUB-Q SCH ×2 (16:00→18:00)
--- NOTE | 2021-07-11 16:44 | Consultation ---
DATE OF CONSULTATION: 07/11/2021 PULMONARY CRITICAL CARE CONSULT NOTE CONSULTING PHYSICIAN: Dr. Rupesh Otero. REASON FOR CONSULT: Acute respiratory failure, acute toxic metabolic encephalopathy. CHIEF COMPLAINT AND HISTORY OF PRESENT ILLNESS: The patient is a 25-year-old young male brought into the Emergency Room by the [facility] for altered mental status and alcohol intoxication. In the Emergency Room, he was intoxicated, belligerent, agitated. He was given some Haldol, Ativan and other medications. The patient then began to desaturate and he was subsequently intubated to protect his airway. In the Emergency Room, he had elevated serum creatine kinase. He was hypoglycemic at that time and hypokalemic. We were asked to assist with management. When I stopped by to see him, he was beginning to wake up. Actually, he was on a propofol drip that was held. He woke up, he followed commands appropriately. I do not have any history of vomiting or overt aspiration. The patient is described as a current daily smoker. The above is as much of the history of presentation as I have. PAST MEDICAL HISTORY: Diabetes. PAST SURGICAL HISTORY: Unknown. MEDICATIONS: Medications he was on at the time I stopped by to see him according to the medication administration record included the following: Tylenol 650 mg per rectum q. 6 hours p.r.n. mild pain or fever, azithromycin 500 mg IV daily, Rocephin 2 grams IV daily, Lovenox 40 mg subcu daily, Pepcid 20 mg IV b.i.d., fentanyl drip had been ordered, it was not running, Haldol 5 mg intramuscularly q. 6 hours p.r.n. agitation, Ativan 2 mg IM q. 4 hours p.r.n. agitation and morphine sulfate 2 mg IV q. 4 hours p.r.n. moderate pain and 4 mg IV q. 4 hours p.r.n. severe pain. Propofol drip was going at 25 mcg/kg per minute, Zofran 4 mg IV q. 8 hours p.r.n. nausea and vomiting, senna docusate 1 tablet p.o. b.i.d., and Geodon 10 mg IM q. 2 hours p.r.n. agitation. ALLERGIES: No known drug allergies. DIET: Well built gentleman, acute weight loss or gain history is unknown. FAMILY AND SOCIAL HISTORY: Apparently lives in the community; however, he does seem to be an alcohol abuser. He is described as a daily smoker. Illicit drug use or abuse history and other family history is unknown. REVIEW OF SYSTEMS: Difficult to obtain secondary to patient's medical and mental condition. Since he has been here, no gross hematochezia or melena, no gross hematuria, no hematemesis, no bloody tracheal secretions, no witnessed seizures. Review of systems otherwise unobtainable or as in body of history above. PHYSICAL EXAMINATION: VITAL SIGNS: At presentation in the Emergency Room, review of the vital signs shows that he was afebrile at initial temperature 97.7 degrees Fahrenheit, pulse of 110, respiratory rate of 26, blood pressure 139/60, O2 sats were 95%, inspired oxygen concentration at that time was not recorded. When I stopped by to see him, O2 sats were 99% that was on the assist control mode of ventilation, tidal volumes were set at 400, rate of 18 and PEEP of 6 and 35% FiO2. GENERAL: He is a young, well-built male. Normocephalic. Appears to have swelling to the anterior forehead on the mechanical ventilator without significant patient ventilator dyssynchrony. HEAD, EYES, EARS, NOSE AND THROAT: Anicteric. No conjunctival erythema. Oropharynx was moist. Secretions were large. Again, he had swelling to the anterior portion of his forehead. Reportedly, he had fallen. No gross jugular venous distention, no thyromegaly. Grossly, there were no palpable lymph nodes in the supraclavicular or submandibular lymph node chains. LUNGS: Auscultation of both lung gerard were unremarkable. He had good bilateral air movement. HEART: Sounds 1 and 2 were heard at the time of my evaluation, regular rate and rhythm without overt rubs or murmurs. ABDOMEN: Soft, flat, bowel sounds are positive, nontender, no palpable hepatosplenomegaly. EXTREMITIES: Without overt digital clubbing or cyanosis, no pedal edema. Pedal pulses were 2+ bilaterally. NEUROLOGIC: Pupils are equal, round, about 4 mm, reactive to light. Extraocular muscle movements were intact. He moves all 4 extremities spontaneously. SKIN: Normal turgor in the areas examined without overt cellulitis or rash. He did have area of abrasion to the anterior forehead. Please see the wound care nurses' notes for full description of his skin. PSYCHIATRIC: Mood and affect were normal. He had intact judgment and insight as far as I can tell, followed commands appropriately. LABORATORY DATA: From my review are as follows: Admission white cell count 7900, hemoglobin 15.2, hematocrit 45.6, platelet count 271. No manual differential. INR within normal limits. Serum sodium was 141, potassium was 3.3, now 3.8, chloride 103, bicarbonate 24, BUN was 13, creatinine 0.7, glucose was 50. AST was slightly elevated at 44. CPK was up at 1282. Liver function tests otherwise within normal limits. Urinalysis negative for nitrites and leukocyte esterase, essentially bland. Alcohol level was elevated at 0.34. Aspirin and Tylenol levels within normal limits. Urine drug screen was otherwise positive for THC. Two sets of blood cultures are no growth to date. A CT scan was done of his head. I have reviewed the radiologist's interpretation. He does see no acute findings in the cervical spine. A small frontal scalp hematoma, no acute intracranial hemorrhage, no acute fracture. Most recent chest x-ray really unremarkable. ET tube in good position, mild interstitial edema at best. No gross pneumothorax, no gross bony fracture. The film was rotated. ASSESSMENT: 1. Acute respiratory failure secondary to 2. 2. Acute toxic metabolic encephalopathy secondary to 3. 3. Acute alcohol intoxication. 4. History of alcohol abuse. 5. Lactic acidosis. Serum lactate 3.6. 6. Hypokalemia at presentation. 7. Oropharyngeal dysphagia. PLAN: He is following commands appropriately. I have put him on a quick spontaneous breathing trial. The plan will be to get arterial blood gas after about 2 hours. He is on a pressure support of 10 and pulling good blood volumes. If he is unable to make the 2-hour lulu, it looks like he should do well post-extubation. Hopefully, I will be able to put him at least about 1 hour or so or thereabouts and get an arterial blood gas just to ensure that he is ventilating appropriately. He has been oxygenating appropriately. We will continue the CIWA protocol empirically. I do feel, however, that his alcohol level is clearing in his blood and he should do well. Because of the large oropharyngeal secretions, he is going to receive 0.2 mg IV of Robinul in case of inadvertent extubation in the short term and reduce chances of airway compromise. Otherwise, I do not really see any acute reason for antibiotics. I will, however, get a stat CRP level and procalcitonin level and if those are unremarkable, I will be stopping antibiotics at this time. We will continue gentle hydration. I will repeat his serum lactic acid level in the morning. Glycemic control will be for a target blood glucose of 140-180 mg/dL while critically ill. He is appropriately on GI and DVT prophylaxis. Flu and pneumonia vaccination will be addressed per protocol. Thank you very much for the consult, Dr. Otero. We will follow along and make further recommendations as picture progresses/becomes clearer. He is critically ill, on life-sustaining interventions including mechanical ventilatory support at very high risk of from cardiopulmonary system and neurologic system decompensation. At this time, I spent about 35-40 minutes of critical care time without overlap and excluding any procedural time that may be necessary. TID: [id number] RECEIPT: [id number] CARRIE/MIKE
[2021-07-11] MEDS: FAMOTIDINE 20 MG/2 ML INJ IV SCH ×2 (16:50→22:48)
[2021-07-11] MEDS: SENNOSIDES/DOCUSATE SODIUM 8.6/50 MG TAB FEEDTUBE SCH ×2 (16:50→22:48)
[2021-07-11] MEDS ORDERED: diphenhydrAMINE 50 MG/ML VIAL IV PRN (16:53)
[2021-07-11] MEDS ORDERED: diphenhydrAMINE 50 MG/ML VIAL ONE (16:59)
[2021-07-11] MEDS ORDERED: FAMOTIDINE 20 MG TAB ONE (17:00)
[2021-07-11] MEDS: diphenhydrAMINE 50 MG/ML VIAL IV SCH (17:04)
--- NOTE | 2021-07-11 19:14 | Electrocardiograph Report ---
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
--- NOTE | 2021-07-11 20:00 | Progress Note ---
<JAZMYN MAYES - Last Filed: 07/12/21 07:31> Assessment and Plan Assessment and plan: This is a 25-years- olf AA male with unknown PmHx who was brought in the ED via EMS for AMS and alcohol intoxication. Upon his arrival in the ED patient was found to be intoxicated, belligerent, and uncooperative, and agitated which cristiane renae received some Haldo, Ativan, and Geodonn. Subsequently patient became hypoxic and was intubated for airway protection. Hospital Course to Date: 07/11/21- Patient is intubated and sedated RASS -5. On low vent settings, plan to transfer patient to the unit. Will do a SAT and SBT trial for possible extubation. Assessment and Plan #Acute Toxic Encephalopathy 2/2 alcohol intoxication #Agitation - 07/10 CT head reveals small frontal scalp hematoma. No acute intracranial hemorrhage. No acute fracture - Patient is currently intubated and sedated on propofol and fentanyl RASS -5 - Titrate sedation for RASS goal 0 to -2 - Daily SAT and SBT per [facility] - Avoid benzodiazepine to reduce the possibility of delirium - Prn analgesia for CPOT greater than 3 - Maintenance of sleep-wake cycle, avoid delirium #CV: Elevated CK - Patient was found down unsure for how long - Tot[place] Cr. Kinase 1282 - NSR on the monitor - Normotensive - Maintain adequate perfusion - Continue rehydration with cont. IVF - Continue blood pressure monitor per protocol - Maintain MAP above 65 - Continue AC- Lovenox and SCDs for VTE proph #Acute Hypoxic Respitary Failure 2/2 intoxiaction Vs sedation #??Aspiration pneumonitis - 07/10 CXR- Mild increased interstitial prominence and opacities in bilateral lungs - 07/11 CXR- Mild increased pulmonary vascularity - Intubated on 06/10- Vent Setting: AC- 35%,6,20,400 - This am ABG pending - SAT and SBT trial as tolerated - Continue SPO2 monitoring for SPO2 goal above 92% - Plan for possible extubation today - repeat CXR in the am - [facility] on consult #GI:NAP - Keep patient NPO for now - Possible extubation today, will reassess this afternoon - Continue PPI- Pepcid #:Hypokalemia- resolved - K initialy 3.3-->3.8 this am - Continue to monitor and replace electrolytes as needed - Hanson in place - No indication for hanson cath, will D/C hanson - Insert condom cath - Continue IVF for now - Strict intake and output #ID: Lactic Acidosis ##??Aspiration pneumonitis - 07/10 CXR- Mild increased interstitial prominence and opacities in bilateral lungs - 07/11 CXR- Mild increased pulmonary vascularity - Lactic acid as high as 3.6 - B.CultureX2 pending - Patient is afebrile, WBCs 5.8 - Continue Empirical Abx- Rocephin and Azithro for now - Will check procal and CRP - Continue to F/U on B.cult - Daily CBC monitor - Consider ID consult if febrile or/and if leukocytosis occur #Endo: Hypoglycemia - Initial BG was 50 in the ED which was treated - Continue hypoglycemic protocol - Continue IVF D5 1/2NS - Q6hrs Accucheck - Avoid hypoglycemia The high probability of a clinically significant, sudden or life threatening deterioration of the [Neuro, Respiratory, Endo] system(s) required my full and direct attention, intervention and personal management. The aggregate critical care time was [60] minutes. This time is in addition to time spent performing reported procedures but includes the following: [x] Data Review and interpretation [x] Patient assessment and monitoring of vital signs [x] Documentation [x] Medication orders and management Disposition Plan: ICU Total Time Spent with Patient (Minutes): 60 History Interval history: Patient seen and examined in the ED. Intubated and sedated on propofol and fentynal, RASS -5. No sign. events reported Hospitalist Physical - Constitutional Vitals: Temp Pulse Resp BP Pulse Ox 97.9 F 78 18 105/52 95 07/11/21 15:48 07/11/21 09:21 07/11/21 16:00 07/11/21 09:21 07/11/21 16:00 General appearance: Present: no acute distress, well-nourished, other (Intubated and sedated) - EENT Eyes: Present: PERRL - Respiratory Respiratory effort: normal Respiratory: bilateral: diminished - Cardiovascular Rhythm: regular Heart Sounds: Present: S1 & S2 - Extremities Extremities: no ischemia, pulses intact, pulses symmetrical, No edema Peripheral Pulses: within normal limits - Abdominal General gastrointestinal: soft, non-tender, hypoactive bowel sounds - Integumentary Integumentary: Present: clear, warm, dry - Psychiatric Psychiatric: other (DEVON, sedated) - Neurologic Neurologic: other (DEVON, sedated) - Allied Health Allied health notes reviewed: nursing Results - Labs CBC & Chem 7: 07/12/21 04:25 07/12/21 04:25 Labs: Laboratory Last Values WBC 5.8 K/mm3 (4.5-11.0) 07/11/21 08:38 RBC 4.49 M/mm3 (3.65-5.03) 07/11/21 08:38 Hgb 13.2 gm/dl (11.8-15.2) 07/11/21 08:38 Hct 39.9 % (35.5-45.6) 07/11/21 08:38 MCV 89 fl (84-94) 07/11/21 08:38 MCH 30 pg (28-32) 07/11/21 08:38 MCHC 33 % (32-34) 07/11/21 08:38 RDW 14.4 % (13.2-15.2) 07/11/21 08:38 Plt Count 216 K/mm3 (140-440) 07/11/21 08:38 Lymph % (Auto) 37.8 % (13.4-35.0) H 07/10/21 23:38 [place] % (Auto) 5.4 % (0.0-7.3) 07/10/21 23:38 Eos % (Auto) 1.6 % (0.0-4.3) 07/10/21 23:38 Baso % (Auto) 0.4 % (0.0-1.8) 07/10/21 23:38 Lymph # (Auto) 3.0 K/mm3 (1.2-5.4) 07/10/21 23:38 [place] # (Auto) 0.4 K/mm3 (0.0-0.8) 07/10/21 23:38 Eos # (Auto) 0.1 K/mm3 (0.0-0.4) 07/10/21 23:38 Baso # (Auto) 0.0 K/mm3 (0.0-0.1) 07/10/21 23:38 Seg Neutrophils % 54.8 % (40.0-70.0) 07/10/21 23:38 Seg Neutrophils # 4.3 K/mm3 (1.8-7.7) 07/10/21 23:38 PT 13.0 Sec. (12.2-14.9) 07/10/21 23:38 INR 0.88 (0.87-1.13) 07/10/21 23:38 ABG pH 7.293 (7.320-7.450) L 07/11/21 14:00 POC ABG pCO2 44.4 mmHg (32.0-48.0) 07/11/21 14:00 POC ABG pO2 141.0 mmHg (83-108) H 07/11/21 14:00 POC ABG HCO3 21.0 07/11/21 14:00 ABG O2 Saturation 98.7 (0-100) 07/11/21 14:00 POC ABG Base Excess -5.4 07/11/21 14:00 ABG Hemoglobin 14.1 (12.0-17.5) 07/11/21 14:00 ABG Oxyhemoglobin 97.6 (94-98) 07/11/21 14:00 ABG Methemoglobin 0.3 (0.0-1.5) 07/11/21 14:00 ABG Sodium 136.3 mmol/L (136.0-145.0) 07/11/21 14:00 ABG Potassium 3.8 mmol/L (3.40-4.50) 07/11/21 14:00 ABG Chloride 104.0 mmol/L (98-107) 07/11/21 14:00 ABG Glucose 67 mg/dL (65-95) 07/11/21 14:00 Carboxyhemoglobin 0.8 (0.5-1.5) 07/11/21 14:00 FiO2 % 35.0 07/11/21 14:00 Sodium 138 mmol/L (137-145) 07/11/21 08:38 Potassium 3.8 mmol/L (3.6-5.0) 07/11/21 08:38 Chloride 103.1 mmol/L (98-107) 07/11/21 08:38 Carbon Dioxide 22 mmol/L (22-30) 07/11/21 08:38 Anion Gap 17 mmol/L 07/11/21 08:38 BUN 10 mg/dL (9-20) 07/11/21 08:38 Creatinine 0.6 mg/dL (0.8-1.3) L 07/11/21 08:38 Estimated GFR > 60 ml/min 07/11/21 08:38 BUN/Creatinine Ratio 17 % 07/11/21 08:38 Glucose 78 mg/dL (75-100) 07/11/21 08:38 POC Glucose 76 mg/dL (70-105) 07/11/21 17:01 Lactic Acid 2.30 mmol/L (0.7-2.0) H* 07/11/21 16:14 Calcium 7.6 mg/dL (8.4-10.2) L 07/11/21 08:38 Magnesium 1.90 mg/dL (1.7-2.3) 07/10/21 23:38 Total Bilirubin 1.00 mg/dL (0.1-1.2) 07/11/21 08:38 AST 42 units/L (5-40) H 07/11/21 08:38 ALT 23 units/L (7-56) 07/11/21 08:38 Alkaline Phosphatase 72 units/L (35-129) 07/11/21 08:38 Total Creatine Kinase 1282 units/L (55-170) H 07/10/21 23:38 C-Reactive Protein 0.10 mg/dL (0.00-1.30) 07/11/21 13:28 Total Protein 6.0 g/dL (6.3-8.2) L 07/11/21 08:38 Albumin 3.4 g/dL (3.9-5) L 07/11/21 08:38 Albumin/Globulin Ratio 1.3 % 07/11/21 08:38 Lipase 13 units/L (13-60) 07/10/21 23:38 Procalcitonin < 0.05 ng/mL (<0.15) 07/11/21 13:28 Arterial Blood Glucose 67 mg/dL (65-95) 07/11/21 14:00 Arterial Blood Ionized Calcium 4.3 mg/dL (4.6-5.3) L 07/11/21 14:00 Urine Color Yellow (Yellow) 07/11/21 Unknown Urine Turbidity Clear (Clear) 07/11/21 Unknown Urine pH 6.0 (5.0-7.0) 07/11/21 Unknown Ur Specific [place] 1.015 (1.003-1.030) 07/11/21 Unknown Urine Protein <15 mg/dl mg/dL (Negative) 07/11/21 Unknown Urine Glucose (UA) >=500 mg/dL (Negative) 07/11/21 Unknown Urine Ketones Neg mg/dL (Negative) 07/11/21 Unknown Urine Blood Sm (Negative) 07/11/21 Unknown Urine Nitrite Neg (Negative) 07/11/21 Unknown Urine Bilirubin Neg (Negative) 07/11/21 Unknown Urine Urobilinogen < 2.0 mg/dL (<2.0) 07/11/21 Unknown Ur Leukocyte Esterase Neg (Negative) 07/11/21 Unknown Urine WBC (Auto) < 1.0 /HPF (0.0-6.0) 07/11/21 Unknown Urine RBC (Auto) < 1.0 /HPF (0.0-6.0) 07/11/21 Unknown Urine Mucus Few /HPF 07/11/21 Unknown Salicylates < 0.3 mg/dL (2.8-20.0) L 07/10/21 23:38 Urine Opiates Screen Negative 07/11/21 Unknown Urine Methadone Screen Negative 07/11/21 Unknown Acetaminophen 5.0 ug/mL (10.0-30.0) L 07/10/21 23:38 Ur Barbiturates Screen Negative 07/11/21 Unknown Ur Phencyclidine Scrn Negative 07/11/21 Unknown Ur Amphetamines Screen Negative 07/11/21 Unknown U Benzodiazepines Scrn Negative 07/11/21 Unknown Urine Cocaine Screen Negative 07/11/21 Unknown U Marijuana (THC) Screen Positive 07/11/21 Unknown Drugs of Abuse Note Disclamer 07/11/21 Unknown Plasma/Serum Alcohol 0.34 % (0-0.07) H 07/10/21 23:38 Microbiology: Microbiology 07/11/21 02:43 Peripheral/Venous Blood Culture - Preliminary Culture in Progress 07/11/21 02:43 Peripheral/Venous Blood Culture - Preliminary Culture in Progress Active Medications - Current Medications Current Medications: Generic Name Dose Route Start Last Admin Trade Name Freq PRN Reason Stop Dose Admin Acetaminophen 650 mg 07/11/21 02:58 Acetaminophen 650 Mg Rect Supp OH Q6H PRN Pain MILD(1-3)/Fever >100.5/HERRON Dextrose 50 ml 07/11/21 01:15 Dextrose 50% In Water (25gm) 50 Ml Syringe IV Q30MIN PRN Hypoglycemia Protocol Diphenhydramine HCl 25 mg 07/11/21 17:30 07/11/21 17:04 Diphenhydramine 50 Mg/Ml Vial IV 07/12/21 05:31 25 mg Q6H LENORA Administration Diphenhydramine HCl 25 mg 07/11/21 16:53 Diphenhydramine 50 Mg/Ml Vial IV Q6H PRN lip swelling Enoxaparin Sodium 40 mg 07/11/21 22:00 Enoxaparin 40 Mg/0.4 Ml Inj SUB-Q QDAY@2200 LENORA Protocol Famotidine 20 mg 07/11/21 10:00 07/11/21 16:50 Famotidine 20 Mg/2 Ml Inj IV Not Given BID LENORA Fentanyl 50 mcg 07/10/21 23:46 Fentanyl 100 Mcg/2 Ml Inj IV Q10MIN PRN ANALGESIA Haloperidol Lactate 5 mg 07/10/21 21:21 07/10/21 21:36 Haloperidol Lactate 5 Mg/1 Ml Inj IM 5 mg Q6HR PRN Administration Agitation Hydrophilic Ointment 1 applic 07/10/21 23:46 Lip Therapy Vaseline TP Q2HR PRN Dry Lips Fentanyl Citrate 2,000 mcg in 100 mls @ 4.082 mls/hr 07/10/21 23:45 07/11/21 11:50 Fentanyl Drip Premix IV 0 mcg/kg/hr TITR LENORA 0 mls/hr Titration Protocol 1 MCG/KG/HR Propofol 1,000 mg in 100 mls @ 2.449 mls/hr 07/10/21 23:45 07/11/21 17:05 Diprivan 10 Mg/Ml IV 0 mcg/kg/min TITR LENORA 0 mls/hr Titration Protocol 5 MCG/KG/MIN Dextrose/Sodium Chloride 1,000 mls @ 150 mls/hr 07/11/21 02:00 07/11/21 14:42 D5/0.45ns IV 150 mls/hr DIRECT LENORA Administration Ceftriaxone Sodium 2 gm in 100 mls @ 200 mls/hr 07/12/21 02:00 Rocephin/Ns 2 Gm/100 Ml IV Q24H LENORA Protocol Azithromycin 500 mg in 250 mls @ 250 mls/hr 07/12/21 02:00 Zithromax/Ns IV Q24H LENORA Protocol Insulin Human Lispro 0 unit 07/11/21 18:00 Insulin Lispro 100 Unit/Ml SUB-Q ACHS [facility] Protocol Lorazepam 2 mg 07/10/21 21:21 07/10/21 21:35 Lorazepam 2 Mg/Ml Vial IM 2 mg Q4HR PRN Administration Agitation Magnesium Hydroxide 30 ml 07/11/21 02:58 Magnesium Hydroxide (Mom) Oral Liqd Udc PO Q4H PRN Constipation Morphine Sulfate 2 mg 07/11/21 02:58 Morphine 2 Mg/1 Ml Inj IV Q4H PRN Pain, Moderate (4-6) Morphine Sulfate 4 mg 07/11/21 02:58 Morphine 4 Mg/1 Ml Inj IV Q4H PRN Pain , Severe (7-10) Multi-Ingred Cream/Lotion/Oil/Oint 1 applic 07/10/21 23:46 Mineral Oil/Petrolatum, White Ophth Oint 3.5 Gm OU Q4HR PRN Dry Eye(s) Ondansetron HCl 4 mg 07/11/21 02:58 Ondansetron 4 Mg/2 Ml Inj IV Q8H PRN Nausea And Vomiting Senna/Docusate Sodium 1 tab 07/11/21 10:00 07/11/21 16:50 Sennosides/Docusate Sodium 8.6/50 Mg Tab FEEDTUBE Not Given BID LENORA Sodium Chloride 10 ml 07/11/21 10:00 Sodium Chloride 0.9% 10 Ml Flush Syringe IV BID LENORA Sodium Chloride 10 ml 07/11/21 02:45 Sodium Chloride 0.9% 10 Ml Flush Syringe IV PRN PRN LINE FLUSH Ziprasidone 10 mg 07/10/21 21:53 07/10/21 22:05 Ziprasidone Mesylate 20 Mg Vial IM 10 mg Q2H PRN Administration Agitation Nutrition/Malnutrition Assess - Dietary Evaluation Nutrition/Malnutrition Findings: Nutrition Notes Start: 07/11/21 15:14 Freq: Status: Active Protocol: Document 07/11/21 15:14 ALEJANDRO (Rec: 07/11/21 15:20 ALEJANDRO [id number]) Nutrition Notes Need for Assessment generated from: MD Order Initial or Follow up Assessment Current Diagnosis Diabetes Other Pertinent Diagnosis AMS, EtOH intoxication, Hypoglycemia, Polysubstance dependence Current Diet NPO Labs/Tests Reviewed Pertinent Medications D5 1/2NS at 150ml/hr, Senokot Height 5 ft 6 in Weight 86.183 kg [place] Body Weight (kg) 64.54 BMI 30.7 Weight Status Obese Subjective/Other Information RD consulted to evaluate nutritional intake. He was intubated upon admission, but extubated today. Burn Absent Trauma Absent Minimum of two criteria No #1 Nutrition Diagnosis Inadequate oral intake Etiology AMS, s/p extubation As Evidenced by Signs and Symptoms pt NPO Is patient on ventilator? No Is Patient Ambulatory and/or Out of Bed No REE-([facility]-confined to bed) 2137.056 Kcal/Kg value to use for calculation 20 Approximate Energy Requirements Using 1724 kcal/Kg Calculation Used for Recommendations Kcal/kg Additional Notes Pro needs 2g/kg IBW: 129g/day Fluid needs 1ml/kcal Nutrition Intervention Change Diet Order: Diet advancement when medically feasible Goal #1 Advance diet to meet nutrient needs Anticipated Discharge Needs: None identified at this time Follow-Up By: 07/13/21 Additional Comments F/U: diet advancement <KAREN LI - Last Filed: 07/13/21 23:19> Assessment and Plan Assessment and plan: I saw and evaluated the patient. Discussed with the nurse practitioner and agree with their findings and plan as documented in this note. - Patient Problems (1) Hypertensive emergency Status: Acute (2) Acute alcohol intoxication Status: Acute (3) Aspiration pneumonitis Status: Acute Hospitalist Physical - Constitutional Vitals: Temp Pulse Resp BP Pulse Ox 98.2 F 74 20 140/80 97 07/13/21 05:28 07/13/21 05:28 07/13/21 05:28 07/13/21 05:28 07/13/21 10:00 Results - Labs CBC & Chem 7: 07/13/21 06:10 07/13/21 06:10 Labs: Laboratory Last Values WBC 5.8 K/mm3 (4.5-11.0) 07/13/21 06:10 RBC 4.94 M/mm3 (3.65-5.03) 07/13/21 06:10 Hgb 14.5 gm/dl (11.8-15.2) 07/13/21 06:10 Hct 43.8 % (35.5-45.6) 07/13/21 06:10 MCV 89 fl (84-94) 07/13/21 06:10 MCH 29 pg (28-32) 07/13/21 06:10 MCHC 33 % (32-34) 07/13/21 06:10 RDW 14.0 % (13.2-15.2) 07/13/21 06:10 Plt Count 249 K/mm3 (140-440) 07/13/21 06:10 Lymph % (Auto) 19.5 % (13.4-35.0) 07/12/21 04:25 [place] % (Auto) 11.7 % (0.0-7.3) H 07/12/21 04:25 Eos % (Auto) 1.1 % (0.0-4.3) 07/12/21 04:25 Baso % (Auto) 0.4 % (0.0-1.8) 07/12/21 04:25 Lymph # (Auto) 2.0 K/mm3 (1.2-5.4) 07/12/21 04:25 [place] # (Auto) 1.2 K/mm3 (0.0-0.8) H 07/12/21 04:25 Eos # (Auto) 0.1 K/mm3 (0.0-0.4) 07/12/21 04:25 Baso # (Auto) 0.0 K/mm3 (0.0-0.1) 07/12/21 04:25 Seg Neutrophils % 67.3 % (40.0-70.0) 07/12/21 04:25 Seg Neutrophils # 7.1 K/mm3 (1.8-7.7) 07/12/21 04:25 PT 13.6 Sec. (12.2-14.9) 07/12/21 04:25 INR 0.94 (0.87-1.13) 07/12/21 04:25 ABG pH 7.293 (7.320-7.450) L 07/11/21 14:00 POC ABG pCO2 44.4 mmHg (32.0-48.0) 07/11/21 14:00 POC ABG pO2 141.0 mmHg (83-108) H 07/11/21 14:00 POC ABG HCO3 21.0 07/11/21 14:00 ABG O2 Saturation 98.7 (0-100) 07/11/21 14:00 POC ABG Base Excess -5.4 07/11/21 14:00 ABG Hemoglobin 14.1 (12.0-17.5) 07/11/21 14:00 ABG Oxyhemoglobin 97.6 (94-98) 07/11/21 14:00 ABG Methemoglobin 0.3 (0.0-1.5) 07/11/21 14:00 ABG Sodium 136.3 mmol/L (136.0-145.0) 07/11/21 14:00 ABG Potassium 3.8 mmol/L (3.40-4.50) 07/11/21 14:00 ABG Chloride 104.0 mmol/L (98-107) 07/11/21 14:00 ABG Glucose 67 mg/dL (65-95) 07/11/21 14:00 Carboxyhemoglobin 0.8 (0.5-1.5) 07/11/21 14:00 FiO2 % 35.0 07/11/21 14:00 Sodium 135 mmol/L (137-145) L 07/13/21 06:10 Potassium 3.5 mmol/L (3.6-5.0) L D 07/13/21 06:10 Chloride 98.7 mmol/L (98-107) 07/13/21 06:10 Carbon Dioxide 27 mmol/L (22-30) 07/13/21 06:10 Anion Gap 13 mmol/L 07/13/21 06:10 BUN 11 mg/dL (9-20) 07/13/21 06:10 Creatinine 0.8 mg/dL (0.8-1.3) 07/13/21 06:10 Estimated GFR > 60 ml/min 07/13/21 06:10 BUN/Creatinine Ratio 14 % 07/13/21 06:10 Glucose 172 mg/dL (75-100) H 07/13/21 06:10 POC Glucose 105 mg/dL (70-105) 07/12/21 21:41 Lactic Acid 1.90 mmol/L (0.7-2.0) 07/12/21 04:25 Calcium 8.5 mg/dL (8.4-10.2) 07/13/21 06:10 Phosphorus 2.90 mg/dL (2.5-4.5) 07/13/21 06:10 Magnesium 1.90 mg/dL (1.7-2.3) 07/13/21 06:10 Total Bilirubin 1.00 mg/dL (0.1-1.2) 07/11/21 08:38 AST 42 units/L (5-40) H 07/11/21 08:38 ALT 23 units/L (7-56) 07/11/21 08:38 Alkaline Phosphatase 72 units/L (35-129) 07/11/21 08:38 Total Creatine Kinase 1282 units/L (55-170) H 07/10/21 23:38 C-Reactive Protein 0.10 mg/dL (0.00-1.30) 07/11/21 13:28 Total Protein 6.0 g/dL (6.3-8.2) L 07/11/21 08:38 Albumin 3.4 g/dL (3.9-5) L 07/11/21 08:38 Albumin/Globulin Ratio 1.3 % 07/11/21 08:38 Lipase 13 units/L (13-60) 07/10/21 23:38 Procalcitonin < 0.05 ng/mL (<0.15) 07/11/21 13:28 Arterial Blood Glucose 67 mg/dL (65-95) 07/11/21 14:00 Arterial Blood Ionized Calcium 4.3 mg/dL (4.6-5.3) L 07/11/21 14:00 Urine Color Yellow (Yellow) 07/11/21 Unknown Urine Turbidity Clear (Clear) 07/11/21 Unknown Urine pH 6.0 (5.0-7.0) 07/11/21 Unknown Ur Specific [place] 1.015 (1.003-1.030) 07/11/21 Unknown Urine Protein <15 mg/dl mg/dL (Negative) 07/11/21 Unknown Urine Glucose (UA) >=500 mg/dL (Negative) 07/11/21 Unknown Urine Ketones Neg mg/dL (Negative) 07/11/21 Unknown Urine Blood Sm (Negative) 07/11/21 Unknown Urine Nitrite Neg (Negative) 07/11/21 Unknown Urine Bilirubin Neg (Negative) 07/11/21 Unknown Urine Urobilinogen < 2.0 mg/dL (<2.0) 07/11/21 Unknown Ur Leukocyte Esterase Neg (Negative) 07/11/21 Unknown Urine WBC (Auto) < 1.0 /HPF (0.0-6.0) 07/11/21 Unknown Urine RBC (Auto) < 1.0 /HPF (0.0-6.0) 07/11/21 Unknown Urine Mucus Few /HPF 07/11/21 Unknown Salicylates < 0.3 mg/dL (2.8-20.0) L 07/10/21 23:38 Urine Opiates Screen Negative 07/11/21 Unknown Urine Methadone Screen Negative 07/11/21 Unknown Acetaminophen 5.0 ug/mL (10.0-30.0) L 07/10/21 23:38 Ur Barbiturates Screen Negative 07/11/21 Unknown Ur Phencyclidine Scrn Negative 07/11/21 Unknown Ur Amphetamines Screen Negative 07/11/21 Unknown U Benzodiazepines Scrn Negative 07/11/21 Unknown Urine Cocaine Screen Negative 07/11/21 Unknown U Marijuana (THC) Screen Positive 07/11/21 Unknown Drugs of Abuse Note Disclamer 07/11/21 Unknown Plasma/Serum Alcohol 0.34 % (0-0.07) H 07/10/21 23:38 Coronavirus (PCR) Negative (Negative) 07/12/21 Unknown Microbiology: Microbiology 07/11/21 02:43 Peripheral/Venous Blood Culture - Preliminary NO GROWTH AFTER 48 HOURS 07/11/21 02:43 Peripheral/Venous Blood Culture - Preliminary NO GROWTH AFTER 48 HOURS Nutrition/Malnutrition Assess - Dietary Evaluation Nutrition/Malnutrition Findings: Nutrition Notes Start: 07/11/21 15:14 Freq: Status: Discharge Protocol: Document 07/11/21 15:14 [facility] (Rec: 07/11/21 15:20 [facility] [id number]) Nutrition Notes Need for Assessment generated from: MD Order Initial or Follow up Assessment Current Diagnosis Diabetes Other Pertinent Diagnosis AMS, EtOH intoxication, Hypoglycemia, Polysubstance dependence Current Diet NPO Labs/Tests Reviewed Pertinent Medications D5 1/2NS at 150ml/hr, Senokot Height 5 ft 6 in Weight 86.183 kg [place] Body Weight (kg) 64.54 BMI 30.7 Weight Status Obese Subjective/Other Information RD consulted to evaluate nutritional intake. He was intubated upon admission, but extubated today. Burn Absent Trauma Absent Minimum of two criteria No #1 Nutrition Diagnosis Inadequate oral intake Etiology AMS, s/p extubation As Evidenced by Signs and Symptoms pt NPO Is patient on ventilator? No Is Patient Ambulatory and/or Out of Bed No REE-([facility]-confined to bed) 2137.056 Kcal/Kg value to use for calculation 20 Approximate Energy Requirements Using 1724 kcal/Kg Calculation Used for Recommendations Kcal/kg Additional Notes Pro needs 2g/kg IBW: 129g/day Fluid needs 1ml/kcal Nutrition Intervention Change Diet Order: Diet advancement when medically feasible Goal #1 Advance diet to meet nutrient needs Anticipated Discharge Needs: None identified at this time Follow-Up By: 07/13/21 Additional Comments F/U: diet advancement
[2021-07-11] MEDS: MORPHINE 2 MG/1 ML INJ IV PRN (22:40)
[2021-07-11] MEDS: ENOXAPARIN 40 MG/0.4 ML INJ SUB-Q SCH (22:48)
[2021-07-11] MEDS: NICOTINE 14 MG/24 HR PATCH TD SCH (22:48)
[2021-07-12] MEDS: diphenhydrAMINE 50 MG/ML VIAL IV SCH ×4 (01:21→21:07)
[2021-07-12] MEDS ORDERED: AZITHROMYCIN/NS 500 MG/250 ML 500 MG/250 ML BAG IV SCH (02:00)
[2021-07-12] MEDS: cefTRIAXone/NS 2 GM/100 ML 2 GM/100 ML BAG IV SCH (02:02)
[2021-07-12 05:18] LABS: Basophils % (Auto) 0.4 % (0.0-1.8); Eosinophils # (Auto) 0.1 K/mm3 (0.0-0.4); Eosinophils % (Auto) 1.1 % (0.0-4.3); Hematocrit 44.7 % (35.5-45.6); Hemoglobin 14.7 gm/dl (11.8-15.2); Lymphocytes % (Auto) 19.5 % (13.4-35.0); Mean Corpuscular HGB Conc 33 % (32-34); Mean Corpuscular Volume 89 fl (84-94); Monocytes # (Auto) 1.2 K/mm3 (0.0-0.8); Monocytes % (Auto) 11.7 % (0.0-7.3); Platelet Count 262 K/mm3 (140-440); Red Cell Distribution Width 14.1 % (13.2-15.2)
[2021-07-12] MEDS: MORPHINE 2 MG/1 ML INJ IV PRN ×2 (05:21→09:40)
[2021-07-12 05:25] LABS: INR 0.94 (0.87-1.13)
[2021-07-12 05:32] LABS: BUN/Creatinine Ratio 9; Blood Urea Nitrogen 8 mg/dL (9-20); Calcium 8.4 mg/dL (8.4-10.2); Hemolysis Index 2
[2021-07-12] MEDS: INSULIN NPH/REGULAR 70/30 INJ SUB-Q SCH ×2 (09:39→16:33)
[2021-07-12] MEDS: FAMOTIDINE 20 MG TAB PO SCH ×2 (09:40→21:06)
--- NOTE | 2021-07-12 10:49 | XRay Report ---
CHEST 1 VIEW INDICATION: F/U pulmonary opacities. COMPARISON: One day prior. FINDINGS: Support devices: Tubes have been removed. Heart: Stable. Lungs/Pleura: Lungs are essentially clear. No pleural abnormality. IMPRESSION: 1. Lungs are clear. No acute findings. Signer Name: Eldon Cantu MD Signed: 07/12/2021 10:45 AM Workstation Name: [id number]
[2021-07-12] MEDS: INSULIN LISPRO 100 UNIT/ML SUB-Q SCH ×3 (12:08→22:04)
[2021-07-12] MEDS: SENNOSIDES/DOCUSATE SODIUM 8.6/50 MG TAB FEEDTUBE SCH ×2 (12:09→21:06)
--- NOTE | 2021-07-12 13:50 | Progress Note ---
Assessment and Plan Acute respiratory failure Acute toxic metabolic encephalopathy Acute alcohol intoxication History of alcohol abuse Lactic acidosis Hypokalemia Oropharyngeal dysphagia - upper lip swelling likely traumatic but will treat with antihistamine therapy X 48 hours out of an abundance of caution - local cold compresses to upper lip - prn supplemental oxygen to keep O2 sats > 90% - prn bronchodilators (CARLOS) with pulm hygiene per RT - avoid nephrotoxins, renally dose all medications - mobility protocols to prevent pressure ulcers - PT/OT as tolerated - Wound care per RN/WCT - continue accuchecks with glycemic control per SSI for target blood glucose < 180 mg/dL - Smoking cessation strongly counseled at the bedside - home oxygen evaluation at discharge - GI & VTE prophylaxis - Flu & pneumovax per protocol - continue other care per attending / other consultants - prn analgesia per pain score ... re-evaluate in am & prn .... doing better and will transfer to medical floor Subjective Date of service: 07/12/21 Principal diagnosis: Acute respiratory failure; AMS; Acute alcohol intoxication; Lactic acidosis Interval history: Patient is seen today for: Acute respiratory failure; Acute toxic metabolic encephalopathy; Acute alcohol intoxication; Lactic acidosis; Hypokalemia; Oropharyngeal dysphagia Seen and examined at bedside; 24hour events reviewed; nursing and respiratory care staff consulted; no adverse overnight events reported to me; resting peacefully in bed; upper lip swelling is persistent; denies SOB and no stridor or dysphagia; denies N/V/F/C Objective Vital Signs - 12hr 07/12/21 07/12/21 07/12/21 02:00 03:00 03:29 Temperature 99.1 F Pulse Rate 89 96 H Respiratory 25 H 22 Rate Blood Pressure 155/76 161/88 O2 Sat by Pulse 97 98 Oximetry 07/12/21 07/12/21 07/12/21 04:00 05:00 06:00 Temperature Pulse Rate 93 H 100 H 96 H Respiratory 21 22 17 Rate Blood Pressure 143/56 178/68 182/52 O2 Sat by Pulse 97 96 97 Oximetry 07/12/21 07/12/21 07/12/21 06:21 07:07 08:00 Temperature 99.1 F Pulse Rate Respiratory 18 Rate Blood Pressure 127/68 O2 Sat by Pulse 97 Oximetry 07/12/21 07/12/21 07/12/21 08:17 10:00 12:00 Temperature 98.9 F Pulse Rate 80 Respiratory Rate Blood Pressure O2 Sat by Pulse 97 Oximetry Constitutional: no acute distress Eyes: non-icteric ENT: oropharynx moist, other (upper lip swelling) Neck: supple, no lymphadenopathy, no JVD Effort: normal Ascultation: Bilateral: clear Percussion: Bilateral: not dull Cardiovascular: regular rate and rhythm Gastrointestinal: normoactive bowel sounds, soft, non-tender, non-distended Integumentary: other (upper lip swelling and abrasion; forehead abrasion) Extremities: no cyanosis, no edema, pulses normal, no ischemia or petechiae Neurologic: normal mental status, non-focal exam, pupils equal and round, CN II- XII normal, motor strength normal and Psychiatric: mood appropriate, affect normal CBC and BMP: 07/12/21 04:25 07/12/21 04:25 ABG, PT/INR, D-dimer: ABG ABG pH 7.293 (7.320-7.450) L 07/11/21 14:00 POC ABG pCO2 44.4 mmHg (32.0-48.0) 07/11/21 14:00 POC ABG pO2 141.0 mmHg (83-108) H 07/11/21 14:00 POC ABG HCO3 21.0 07/11/21 14:00 ABG O2 Saturation 98.7 (0-100) 07/11/21 14:00 PT/INR, D-dimer PT 13.6 Sec. (12.2-14.9) 07/12/21 04:25 INR 0.94 (0.87-1.13) 07/12/21 04:25 Abnormal lab findings: Abnormal Labs 07/10/21 07/10/21 07/10/21 23:38 23:38 23:38 RBC 5.19 H Lymph % (Auto) 37.8 H [place] % (Auto) [place] # (Auto) ABG pH POC ABG pO2 Sodium Potassium 3.3 L Chloride BUN Creatinine 0.7 L Glucose 50 L POC Glucose Lactic Acid Calcium AST 44 H Total Creatine Kinase 1282 H Total Protein Albumin Arterial Blood Ionized Calcium Salicylates Acetaminophen Plasma/Serum Alcohol 0.34 H 07/10/21 07/10/21 07/11/21 23:38 23:38 02:43 RBC Lymph % (Auto) [place] % (Auto) [place] # (Auto) ABG pH POC ABG pO2 Sodium Potassium Chloride BUN Creatinine Glucose POC Glucose Lactic Acid 3.60 H* Calcium AST Total Creatine Kinase Total Protein Albumin Arterial Blood Ionized Calcium Salicylates < 0.3 L Acetaminophen 5.0 L Plasma/Serum Alcohol 07/11/21 07/11/21 07/11/21 03:08 04:57 08:38 RBC Lymph % (Auto) [place] % (Auto) [place] # (Auto) ABG pH POC ABG pO2 Sodium Potassium Chloride BUN Creatinine Glucose POC Glucose 110 H Lactic Acid 3.40 H* 3.50 H* Calcium AST Total Creatine Kinase Total Protein Albumin Arterial Blood Ionized Calcium Salicylates Acetaminophen Plasma/Serum Alcohol 07/11/21 07/11/21 07/11/21 08:38 10:18 11:28 RBC Lymph % (Auto) [place] % (Auto) [place] # (Auto) ABG pH POC ABG pO2 Sodium Potassium Chloride BUN Creatinine 0.6 L Glucose POC Glucose 61 L Lactic Acid 3.60 H* Calcium 7.6 L AST 42 H Total Creatine Kinase Total Protein 6.0 L Albumin 3.4 L Arterial Blood Ionized Calcium Salicylates Acetaminophen Plasma/Serum Alcohol 07/11/21 07/11/21 07/11/21 14:00 16:14 22:33 RBC Lymph % (Auto) [place] % (Auto) [place] # (Auto) ABG pH 7.293 L POC ABG pO2 141.0 H Sodium Potassium Chloride BUN Creatinine Glucose POC Glucose 233 H Lactic Acid 2.30 H* Calcium AST Total Creatine Kinase Total Protein Albumin Arterial Blood Ionized Calcium 4.3 L Salicylates Acetaminophen Plasma/Serum Alcohol 07/12/21 07/12/21 07/12/21 04:25 04:25 07:32 RBC Lymph % (Auto) [place] % (Auto) 11.7 H [place] # (Auto) 1.2 H ABG pH POC ABG pO2 Sodium 133 L Potassium Chloride 93.2 L BUN 8 L Creatinine Glucose 366 H POC Glucose 382 H Lactic Acid Calcium AST Total Creatine Kinase Total Protein Albumin Arterial Blood Ionized Calcium Salicylates Acetaminophen Plasma/Serum Alcohol 07/12/21 11:36 RBC Lymph % (Auto) [place] % (Auto) [place] # (Auto) ABG pH POC ABG pO2 Sodium Potassium Chloride BUN Creatinine Glucose POC Glucose 255 H Lactic Acid Calcium AST Total Creatine Kinase Total Protein Albumin Arterial Blood Ionized Calcium Salicylates Acetaminophen Plasma/Serum Alcohol Allied health notes reviewed: nursing
--- NOTE | 2021-07-12 16:27 | Progress Note ---
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 Upon his arrival in the ED patient was found to be intoxicated, belligerent, and uncoope rative, and agitated which patient received some Haldo, Ativan, and Geodonn. Subsequently patient became hypoxic and was intubated for airway protection. Hospital Course to Date: 07/11/21- Patient is intubated and sedated RASS -5. On low vent settings, plan to transfer patient to the unit. Will do a SAT and SBT trial for possible extubation. 07/12/21- Patient s/p extubation on RA SPO2 at 100%. Upper lips swelling s/p extubation c/f allergic reaction was treated with IV benadryl and pepcid, lip remains swollen. Per CCM lip swolling appears more traumatic than an allergic reaction. Low Na and Cl noted, IFV D/Stanislaw, will continue to monitor. Hypertensive overnight, patient stated he was diagnosed with HTN but has been noncompliant with meds, PRN Hydral ordered for SBP greater than 170. Patient is stable for transfer to the floor. Assessment and Plan #Acute Toxic Encephalopathy 2/2 alcohol intoxication- improved #Agitation- resolved - 07/10 CT head reveals small frontal scalp hematoma. No acute intracranial hemorrhage. No acute fracture - Sedation D/C - Patient drowsy but AAO - UDS + THC - Avoid benzodiazepine to reduce the possibility of delirium - Prn analgesia for CPOT greater than 3 - Maintenance of sleep-wake cycle, avoid delirium #CV: Elevated CK #H/o HTN - Patient was found down unsure for how long - [place] Cr. Kinase 1282 - NSR on the monitor - Hypertensive overnight - Patient stated she has been diagnosed with HTN but has stopped taking his prescription (Lisinorpil) 6months ago - Maintain adequate perfusion - Continue blood pressure monitor per protocol - PRN Hydralazine added for SPB greater than 170 - Continue AC- Lovenox and SCDs for VTE proph #Acute Hypoxic Respitary Failure 2/2 intoxiaction Vs sedation #??Aspiration pneumonitis #Tobacco abuse - 07/10 CXR- Mild increased interstitial prominence and opacities in bilateral lungs - 07/11 CXR- Mild increased pulmonary vascularity - 07/12 CXR- Lungs are clear. No acute findings - Intubated on 06/10, Extubated on 06/11 - Currently on RA - Continue SPO2 monitoring for SPO2 goal above 95% - PRN Oxgen supplement is needed - [facility] on consult- Okay for transfer to Med/Surg #GI:Vomitting- resolved - Nausea/vomitting post extubation, resolved today - Continue PRN antiemetic - Continue PPI- Pepcid #:Hyponetremia #Hypochloremia #Hypokalemia- resolved - K initialy 3.3-->34.7 this am - Low Na and Cl, will continue to monitor for now - IVF D/C - Continue to monitor and replace electrolytes as needed - Continue strict intake and output #ID: Lactic Acidosis- resolved ##??Aspiration pneumonitis- resolved - 07/10 CXR- Mild increased interstitial prominence and opacities in bilateral lungs - 07/11 CXR- Mild increased pulmonary vascularity - Repeat CXR 07/12- Lungs are clear. No acute findings - Lactic acid as high as 3.6--> 1.9 today - B.CultureX2 pending - Patient is afebrile, WBCs 10.5 - Continue Empirical Abx- Rocephin and Azithro for 1 more day - Procal and CRP normal - Continue to F/U on B.cult - Daily CBC monitor - Consider ID consult if febrile or/and if leukocytosis occur #Lip Angioedema possible allergic reaction vs trauma - Swollen lip post extubation yesterday - Patient received benadryl and pepcid yesterday - Per [facility] angioma appears more traumatic than an allergic reaction - Plan to continue with antihistamine therapy X 48 hours #Endo: Hyperglycemia #H/o Type 1DM #Hypoglycemia-resolved - Initial BG was 50 in the ED--> now hyperglycemic - High dose SSI ACHS - restarted patient's home dose NPH BID - Avoid hypoglycemia - Continue hypoglycemic protocol The high probability of a clinically significant, sudden or life threatening deterioration of the [Neuro, Respiratory, Endo] system(s) required my full and direct attention, intervention and personal management. The aggregate critical care time was [60] minutes. This time is in addition to time spent performing reported procedures but includes the following: [x] Data Review and interpretation [x] Patient assessment and monitoring of vital signs [x] Documentation [x] Medication orders and management Disposition Plan: ICU Total Time Spent with Patient (Minutes): 60 History Interval history: Patient seen and examined at the bedside. Fully AAO, on RA. Upper lip swollen yesterday, c/f allergic reaction was treated with IV benadryl and pepcid. Patient is stable, no signs of any distress noted Hospitalist Physical - Constitutional Vitals: Temp Pulse Resp BP Pulse Ox 98.9 F 80 18 127/68 98 07/12/21 12:00 07/12/21 10:00 07/12/21 16:00 07/12/21 06:21 07/12/21 16:00 General appearance: Present: no acute distress, well-nourished - EENT Eyes: Present: PERRL ENT: hearing intact, clear oral mucosa, other (Lip angioedema) - Neck Neck: Present: normal ROM - Respiratory Respiratory effort: normal Respiratory: bilateral: CTA - Cardiovascular Rhythm: regular Heart Sounds: Present: S1 & S2 - Extremities Extremities: no ischemia, pulses intact, pulses symmetrical, No edema, normal temperature, Full ROM Peripheral Pulses: within normal limits - Abdominal General gastrointestinal: soft, non-tender, normal bowel sounds - Integumentary Integumentary: Present: clear, warm, dry - Psychiatric Psychiatric: appropriate mood/affect, cooperative - Neurologic Neurologic: CNII-XII intact, moves all extremities - Allied Health Allied health notes reviewed: nursing Results - Labs CBC & Chem 7: 07/12/21 04:25 07/12/21 04:25 Labs: Laboratory Last Values WBC 10.5 K/mm3 (4.5-11.0) 07/12/21 04:25 RBC 5.00 M/mm3 (3.65-5.03) 07/12/21 04:25 Hgb 14.7 gm/dl (11.8-15.2) 07/12/21 04:25 Hct 44.7 % (35.5-45.6) 07/12/21 04:25 MCV 89 fl (84-94) 07/12/21 04:25 MCH 29 pg (28-32) 07/12/21 04:25 MCHC 33 % (32-34) 07/12/21 04:25 RDW 14.1 % (13.2-15.2) 07/12/21 04:25 Plt Count 262 K/mm3 (140-440) 07/12/21 04:25 Lymph % (Auto) 19.5 % (13.4-35.0) 07/12/21 04:25 [place] % (Auto) 11.7 % (0.0-7.3) H 07/12/21 04:25 Eos % (Auto) 1.1 % (0.0-4.3) 07/12/21 04:25 Baso % (Auto) 0.4 % (0.0-1.8) 07/12/21 04:25 Lymph # (Auto) 2.0 K/mm3 (1.2-5.4) 07/12/21 04:25 [place] # (Auto) 1.2 K/mm3 (0.0-0.8) H 07/12/21 04:25 Eos # (Auto) 0.1 K/mm3 (0.0-0.4) 07/12/21 04:25 Baso # (Auto) 0.0 K/mm3 (0.0-0.1) 07/12/21 04:25 Seg Neutrophils % 67.3 % (40.0-70.0) 07/12/21 04:25 Seg Neutrophils # 7.1 K/mm3 (1.8-7.7) 07/12/21 04:25 PT 13.6 Sec. (12.2-14.9) 07/12/21 04:25 INR 0.94 (0.87-1.13) 07/12/21 04:25 ABG pH 7.293 (7.320-7.450) L 07/11/21 14:00 POC ABG pCO2 44.4 mmHg (32.0-48.0) 07/11/21 14:00 POC ABG pO2 141.0 mmHg (83-108) H 07/11/21 14:00 POC ABG HCO3 21.0 07/11/21 14:00 ABG O2 Saturation 98.7 (0-100) 07/11/21 14:00 POC ABG Base Excess -5.4 07/11/21 14:00 ABG Hemoglobin 14.1 (12.0-17.5) 07/11/21 14:00 ABG Oxyhemoglobin 97.6 (94-98) 07/11/21 14:00 ABG Methemoglobin 0.3 (0.0-1.5) 07/11/21 14:00 ABG Sodium 136.3 mmol/L (136.0-145.0) 07/11/21 14:00 ABG Potassium 3.8 mmol/L (3.40-4.50) 07/11/21 14:00 ABG Chloride 104.0 mmol/L (98-107) 07/11/21 14:00 ABG Glucose 67 mg/dL (65-95) 07/11/21 14:00 Carboxyhemoglobin 0.8 (0.5-1.5) 07/11/21 14:00 FiO2 % 35.0 07/11/21 14:00 Sodium 133 mmol/L (137-145) L 07/12/21 04:25 Potassium 4.7 mmol/L (3.6-5.0) D 07/12/21 04:25 Chloride 93.2 mmol/L (98-107) L 07/12/21 04:25 Carbon Dioxide 24 mmol/L (22-30) 07/12/21 04:25 Anion Gap 21 mmol/L 07/12/21 04:25 BUN 8 mg/dL (9-20) L 07/12/21 04:25 Creatinine 0.9 mg/dL (0.8-1.3) 07/12/21 04:25 Estimated GFR > 60 ml/min 07/12/21 04:25 BUN/Creatinine Ratio 9 % 07/12/21 04:25 Glucose 366 mg/dL (75-100) H 07/12/21 04:25 POC Glucose 177 mg/dL (70-105) H 07/12/21 16:12 Lactic Acid 1.90 mmol/L (0.7-2.0) 07/12/21 04:25 Calcium 8.4 mg/dL (8.4-10.2) 07/12/21 04:25 Magnesium 1.90 mg/dL (1.7-2.3) 07/10/21 23:38 Total Bilirubin 1.00 mg/dL (0.1-1.2) 07/11/21 08:38 AST 42 units/L (5-40) H 07/11/21 08:38 ALT 23 units/L (7-56) 07/11/21 08:38 Alkaline Phosphatase 72 units/L (35-129) 07/11/21 08:38 Total Creatine Kinase 1282 units/L (55-170) H 07/10/21 23:38 C-Reactive Protein 0.10 mg/dL (0.00-1.30) 07/11/21 13:28 Total Protein 6.0 g/dL (6.3-8.2) L 07/11/21 08:38 Albumin 3.4 g/dL (3.9-5) L 07/11/21 08:38 Albumin/Globulin Ratio 1.3 % 07/11/21 08:38 Lipase 13 units/L (13-60) 07/10/21 23:38 Procalcitonin < 0.05 ng/mL (<0.15) 07/11/21 13:28 Arterial Blood Glucose 67 mg/dL (65-95) 07/11/21 14:00 Arterial Blood Ionized Calcium 4.3 mg/dL (4.6-5.3) L 07/11/21 14:00 Urine Color Yellow (Yellow) 07/11/21 Unknown Urine Turbidity Clear (Clear) 07/11/21 Unknown Urine pH 6.0 (5.0-7.0) 07/11/21 Unknown Ur Specific [place] 1.015 (1.003-1.030) 07/11/21 Unknown Urine Protein <15 mg/dl mg/dL (Negative) 07/11/21 Unknown Urine Glucose (UA) >=500 mg/dL (Negative) 07/11/21 Unknown Urine Ketones Neg mg/dL (Negative) 07/11/21 Unknown Urine Blood Sm (Negative) 07/11/21 Unknown Urine Nitrite Neg (Negative) 07/11/21 Unknown Urine Bilirubin Neg (Negative) 07/11/21 Unknown Urine Urobilinogen < 2.0 mg/dL (<2.0) 07/11/21 Unknown Ur Leukocyte Esterase Neg (Negative) 07/11/21 Unknown Urine WBC (Auto) < 1.0 /HPF (0.0-6.0) 07/11/21 Unknown Urine RBC (Auto) < 1.0 /HPF (0.0-6.0) 07/11/21 Unknown Urine Mucus Few /HPF 07/11/21 Unknown Salicylates < 0.3 mg/dL (2.8-20.0) L 07/10/21 23:38 Urine Opiates Screen Negative 07/11/21 Unknown Urine Methadone Screen Negative 07/11/21 Unknown Acetaminophen 5.0 ug/mL (10.0-30.0) L 07/10/21 23:38 Ur Barbiturates Screen Negative 07/11/21 Unknown Ur Phencyclidine Scrn Negative 07/11/21 Unknown Ur Amphetamines Screen Negative 07/11/21 Unknown U Benzodiazepines Scrn Negative 07/11/21 Unknown Urine Cocaine Screen Negative 07/11/21 Unknown U Marijuana (THC) Screen Positive 07/11/21 Unknown Drugs of Abuse Note Disclamer 07/11/21 Unknown Plasma/Serum Alcohol 0.34 % (0-0.07) H 07/10/21 23:38 Coronavirus (PCR) Negative (Negative) 07/12/21 Unknown Microbiology: Microbiology 07/11/21 02:43 Peripheral/Venous Blood Culture - Preliminary NO GROWTH AFTER 24 HOURS 07/11/21 02:43 Peripheral/Venous Blood Culture - Preliminary NO GROWTH AFTER 24 HOURS Active Medications - Current Medications Current Medications: Generic Name Dose Route Start Last Admin Trade Name Freq PRN Reason Stop Dose Admin Acetaminophen 650 mg 07/11/21 02:58 Acetaminophen 650 Mg Rect Supp NE Q6H PRN Pain MILD(1-3)/Fever >100.5/HERRON Azithromycin 500 mg 07/12/21 22:00 Azithromycin 250 Mg Tab PO 07/13/21 22:01 Q24H LENORA Protocol Dextrose 50 ml 07/11/21 01:15 Dextrose 50% In Water (25gm) 50 Ml Syringe IV Q30MIN PRN Hypoglycemia Protocol Diphenhydramine HCl 25 mg 07/11/21 16:53 Diphenhydramine 50 Mg/Ml Vial IV Q6H PRN lip swelling Diphenhydramine HCl 25 mg 07/12/21 14:00 07/12/21 15:39 Diphenhydramine 50 Mg/Ml Vial IV 07/13/21 08:01 25 mg Q6H LENORA Administration Enoxaparin Sodium 40 mg 07/11/21 22:00 07/11/21 22:48 Enoxaparin 40 Mg/0.4 Ml Inj SUB-Q Not Given QDAY@2200 [facility] Protocol Famotidine 20 mg 07/12/21 10:00 07/12/21 09:40 Famotidine 20 Mg Tab PO 20 mg BID LENORA Administration Haloperidol Lactate 5 mg 07/10/21 21:21 07/10/21 21:36 Haloperidol Lactate 5 Mg/1 Ml Inj IM 5 mg Q6HR PRN Administration Agitation Hydrophilic Ointment 1 applic 07/10/21 23:46 Lip Therapy Vaseline TP Q2HR PRN Dry Lips Ceftriaxone Sodium 2 gm in 100 mls @ 200 mls/hr 07/12/21 02:00 07/12/21 02:02 Rocephin/Ns 2 Gm/100 Ml IV 07/14/21 02:29 200 mls/hr Q24H [facility] Administration Protocol Insulin Human Isoph/Insulin Regular 25 unit 07/12/21 09:30 07/12/21 09:39 Insulin Nph/Regular 70/30 Inj SUB-Q 25 unit BIDDIAB LENORA Administration Insulin Human Lispro 0 unit 07/12/21 11:30 07/12/21 12:08 Insulin Lispro 100 Unit/Ml SUB-Q 6 unit ACHS [facility] Administration Protocol Lorazepam 2 mg 07/10/21 21:21 07/10/21 21:35 Lorazepam 2 Mg/Ml Vial IM 2 mg Q4HR PRN Administration Agitation Magnesium Hydroxide 30 ml 07/11/21 02:58 Magnesium Hydroxide (Mom) Oral Liqd Udc PO Q4H PRN Constipation Morphine Sulfate 2 mg 07/11/21 02:58 07/12/21 09:40 Morphine 2 Mg/1 Ml Inj IV 2 mg Q4H PRN Administration Pain, Moderate (4-6) Morphine Sulfate 4 mg 07/11/21 02:58 Morphine 4 Mg/1 Ml Inj IV Q4H PRN Pain , Severe (7-10) Multi-Ingred Cream/Lotion/Oil/Oint 1 applic 07/10/21 23:46 Mineral Oil/Petrolatum, White Ophth Oint 3.5 Gm OU Q4HR PRN Dry Eye(s) Nicotine 14 mg 07/11/21 21:00 07/11/21 22:48 Nicotine 14 Mg/24 Hr Patch TD Not Given Q24H [facility] Ondansetron HCl 4 mg 07/11/21 02:58 Ondansetron 4 Mg/2 Ml Inj IV Q8H PRN Nausea And Vomiting Senna/Docusate Sodium 1 tab 07/11/21 10:00 07/12/21 12:09 Sennosides/Docusate Sodium 8.6/50 Mg Tab FEEDTUBE 1 tab BID LENORA Administration Sodium Chloride 10 ml 07/11/21 10:00 07/12/21 09:41 Sodium Chloride 0.9% 10 Ml Flush Syringe IV 10 ml BID LENORA Administration Sodium Chloride 10 ml 07/11/21 02:45 Sodium Chloride 0.9% 10 Ml Flush Syringe IV PRN PRN LINE FLUSH Ziprasidone 10 mg 07/10/21 21:53 07/10/21 22:05 Ziprasidone Mesylate 20 Mg Vial IM 10 mg Q2H PRN Administration Agitation Nutrition/Malnutrition Assess - Dietary Evaluation Nutrition/Malnutrition Findings: Nutrition Notes Start: 07/11/21 15:14 Freq: Status: Active Protocol: Document 07/11/21 15:14 ALEJANDRO (Rec: 07/11/21 15:20 PAALL [id number]) Nutrition Notes Need for Assessment generated from: MD Order Initial or Follow up Assessment Current Diagnosis Diabetes Other Pertinent Diagnosis AMS, EtOH intoxication, Hypoglycemia, Polysubstance dependence Current Diet NPO Labs/Tests Reviewed Pertinent Medications D5 1/2NS at 150ml/hr, Senokot Height 5 ft 6 in Weight 86.183 kg [place] Body Weight (kg) 64.54 BMI 30.7 Weight Status Obese Subjective/Other Information RD consulted to evaluate nutritional intake. He was intubated upon admission, but extubated today. Burn Absent Trauma Absent Minimum of two criteria No #1 Nutrition Diagnosis Inadequate oral intake Etiology AMS, s/p extubation As Evidenced by Signs and Symptoms pt NPO Is patient on ventilator? No Is Patient Ambulatory and/or Out of Bed No REE-([facility]-confined to bed) 2137.056 Kcal/Kg value to use for calculation 20 Approximate Energy Requirements Using 1724 kcal/Kg Calculation Used for Recommendations Kcal/kg Additional Notes Pro needs 2g/kg IBW: 129g/day Fluid needs 1ml/kcal Nutrition Intervention Change Diet Order: Diet advancement when medically feasible Goal #1 Advance diet to meet nutrient needs Anticipated Discharge Needs: None identified at this time Follow-Up By: 07/13/21 Additional Comments F/U: diet advancement <KAREN LI - Last Filed: 07/13/21 23:16> Assessment and Plan Assessment and plan: I saw and evaluated the patient. Discussed with the nurse practitioner and agree with their findings and plan as documented in this note. - Patient Problems (1) Hypertensive emergency Status: Acute (2) Acute alcohol intoxication Status: Acute (3) Aspiration pneumonitis Status: Acute Hospitalist Physical - Constitutional Vitals: Temp Pulse Resp BP Pulse Ox 98.2 F 74 20 140/80 97 07/13/21 05:28 07/13/21 05:28 07/13/21 05:28 07/13/21 05:28 07/13/21 10:00 Results - Labs CBC & Chem 7: 07/13/21 06:10 07/13/21 06:10 Labs: Laboratory Last Values WBC 5.8 K/mm3 (4.5-11.0) 07/13/21 06:10 RBC 4.94 M/mm3 (3.65-5.03) 07/13/21 06:10 Hgb 14.5 gm/dl (11.8-15.2) 07/13/21 06:10 Hct 43.8 % (35.5-45.6) 07/13/21 06:10 MCV 89 fl (84-94) 07/13/21 06:10 MCH 29 pg (28-32) 07/13/21 06:10 MCHC 33 % (32-34) 07/13/21 06:10 RDW 14.0 % (13.2-15.2) 07/13/21 06:10 Plt Count 249 K/mm3 (140-440) 07/13/21 06:10 Lymph % (Auto) 19.5 % (13.4-35.0) 07/12/21 04:25 [place] % (Auto) 11.7 % (0.0-7.3) H 07/12/21 04:25 Eos % (Auto) 1.1 % (0.0-4.3) 07/12/21 04:25 Baso % (Auto) 0.4 % (0.0-1.8) 07/12/21 04:25 Lymph # (Auto) 2.0 K/mm3 (1.2-5.4) 07/12/21 04:25 [place] # (Auto) 1.2 K/mm3 (0.0-0.8) H 07/12/21 04:25 Eos # (Auto) 0.1 K/mm3 (0.0-0.4) 07/12/21 04:25 Baso # (Auto) 0.0 K/mm3 (0.0-0.1) 07/12/21 04:25 Seg Neutrophils % 67.3 % (40.0-70.0) 07/12/21 04:25 Seg Neutrophils # 7.1 K/mm3 (1.8-7.7) 07/12/21 04:25 PT 13.6 Sec. (12.2-14.9) 07/12/21 04:25 INR 0.94 (0.87-1.13) 07/12/21 04:25 ABG pH 7.293 (7.320-7.450) L 07/11/21 14:00 POC ABG pCO2 44.4 mmHg (32.0-48.0) 07/11/21 14:00 POC ABG pO2 141.0 mmHg (83-108) H 07/11/21 14:00 POC ABG HCO3 21.0 07/11/21 14:00 ABG O2 Saturation 98.7 (0-100) 07/11/21 14:00 POC ABG Base Excess -5.4 07/11/21 14:00 ABG Hemoglobin 14.1 (12.0-17.5) 07/11/21 14:00 ABG Oxyhemoglobin 97.6 (94-98) 07/11/21 14:00 ABG Methemoglobin 0.3 (0.0-1.5) 07/11/21 14:00 ABG Sodium 136.3 mmol/L (136.0-145.0) 07/11/21 14:00 ABG Potassium 3.8 mmol/L (3.40-4.50) 07/11/21 14:00 ABG Chloride 104.0 mmol/L (98-107) 07/11/21 14:00 ABG Glucose 67 mg/dL (65-95) 07/11/21 14:00 Carboxyhemoglobin 0.8 (0.5-1.5) 07/11/21 14:00 FiO2 % 35.0 07/11/21 14:00 Sodium 135 mmol/L (137-145) L 07/13/21 06:10 Potassium 3.5 mmol/L (3.6-5.0) L D 07/13/21 06:10 Chloride 98.7 mmol/L (98-107) 07/13/21 06:10 Carbon Dioxide 27 mmol/L (22-30) 07/13/21 06:10 Anion Gap 13 mmol/L 07/13/21 06:10 BUN 11 mg/dL (9-20) 07/13/21 06:10 Creatinine 0.8 mg/dL (0.8-1.3) 07/13/21 06:10 Estimated GFR > 60 ml/min 07/13/21 06:10 BUN/Creatinine Ratio 14 % 07/13/21 06:10 Glucose 172 mg/dL (75-100) H 07/13/21 06:10 POC Glucose 105 mg/dL (70-105) 07/12/21 21:41 Lactic Acid 1.90 mmol/L (0.7-2.0) 07/12/21 04:25 Calcium 8.5 mg/dL (8.4-10.2) 07/13/21 06:10 Phosphorus 2.90 mg/dL (2.5-4.5) 07/13/21 06:10 Magnesium 1.90 mg/dL (1.7-2.3) 07/13/21 06:10 Total Bilirubin 1.00 mg/dL (0.1-1.2) 07/11/21 08:38 AST 42 units/L (5-40) H 07/11/21 08:38 ALT 23 units/L (7-56) 07/11/21 08:38 Alkaline Phosphatase 72 units/L (35-129) 07/11/21 08:38 Total Creatine Kinase 1282 units/L (55-170) H 07/10/21 23:38 C-Reactive Protein 0.10 mg/dL (0.00-1.30) 07/11/21 13:28 Total Protein 6.0 g/dL (6.3-8.2) L 07/11/21 08:38 Albumin 3.4 g/dL (3.9-5) L 07/11/21 08:38 Albumin/Globulin Ratio 1.3 % 07/11/21 08:38 Lipase 13 units/L (13-60) 07/10/21 23:38 Procalcitonin < 0.05 ng/mL (<0.15) 07/11/21 13:28 Arterial Blood Glucose 67 mg/dL (65-95) 07/11/21 14:00 Arterial Blood Ionized Calcium 4.3 mg/dL (4.6-5.3) L 07/11/21 14:00 Urine Color Yellow (Yellow) 07/11/21 Unknown Urine Turbidity Clear (Clear) 07/11/21 Unknown Urine pH 6.0 (5.0-7.0) 07/11/21 Unknown Ur Specific [place] 1.015 (1.003-1.030) 07/11/21 Unknown Urine Protein <15 mg/dl mg/dL (Negative) 07/11/21 Unknown Urine Glucose (UA) >=500 mg/dL (Negative) 07/11/21 Unknown Urine Ketones Neg mg/dL (Negative) 07/11/21 Unknown Urine Blood Sm (Negative) 07/11/21 Unknown Urine Nitrite Neg (Negative) 07/11/21 Unknown Urine Bilirubin Neg (Negative) 07/11/21 Unknown Urine Urobilinogen < 2.0 mg/dL (<2.0) 07/11/21 Unknown Ur Leukocyte Esterase Neg (Negative) 07/11/21 Unknown Urine WBC (Auto) < 1.0 /HPF (0.0-6.0) 07/11/21 Unknown Urine RBC (Auto) < 1.0 /HPF (0.0-6.0) 07/11/21 Unknown Urine Mucus Few /HPF 07/11/21 Unknown Salicylates < 0.3 mg/dL (2.8-20.0) L 07/10/21 23:38 Urine Opiates Screen Negative 07/11/21 Unknown Urine Methadone Screen Negative 07/11/21 Unknown Acetaminophen 5.0 ug/mL (10.0-30.0) L 07/10/21 23:38 Ur Barbiturates Screen Negative 07/11/21 Unknown Ur Phencyclidine Scrn Negative 07/11/21 Unknown Ur Amphetamines Screen Negative 07/11/21 Unknown U Benzodiazepines Scrn Negative 07/11/21 Unknown Urine Cocaine Screen Negative 07/11/21 Unknown U Marijuana (THC) Screen Positive 07/11/21 Unknown Drugs of Abuse Note Disclamer 07/11/21 Unknown Plasma/Serum Alcohol 0.34 % (0-0.07) H 07/10/21 23:38 Coronavirus (PCR) Negative (Negative) 07/12/21 Unknown Microbiology: Microbiology 07/11/21 02:43 Peripheral/Venous Blood Culture - Preliminary NO GROWTH AFTER 48 HOURS 07/11/21 02:43 Peripheral/Venous Blood Culture - Preliminary NO GROWTH AFTER 48 HOURS Nutrition/Malnutrition Assess - Dietary Evaluation Nutrition/Malnutrition Findings: Nutrition Notes Start: 07/11/21 15:14 Freq: Status: Discharge Protocol: Document 07/11/21 15:14 ALEJANDRO (Rec: 07/11/21 15:20 ALEJANDRO [email or web address]) Nutrition Notes Need for Assessment generated from: MD Order Initial or Follow up Assessment Current Diagnosis Diabetes Other Pertinent Diagnosis AMS, EtOH intoxication, Hypoglycemia, Polysubstance dependence Current Diet NPO Labs/Tests Reviewed Pertinent Medications D5 1/2NS at 150ml/hr, Senokot Height 5 ft 6 in Weight 86.183 kg [place] Body Weight (kg) 64.54 BMI 30.7 Weight Status Obese Subjective/Other Information RD consulted to evaluate nutritional intake. He was intubated upon admission, but extubated today. Burn Absent Trauma Absent Minimum of two criteria No #1 Nutrition Diagnosis Inadequate oral intake Etiology AMS, s/p extubation As Evidenced by Signs and Symptoms pt NPO Is patient on ventilator? No Is Patient Ambulatory and/or Out of Bed No REE-([facility]-confined to bed) 2137.056 Kcal/Kg value to use for calculation 20 Approximate Energy Requirements Using 1724 kcal/Kg Calculation Used for Recommendations Kcal/kg Additional Notes Pro needs 2g/kg IBW: 129g/day Fluid needs 1ml/kcal Nutrition Intervention Change Diet Order: Diet advancement when medically feasible Goal #1 Advance diet to meet nutrient needs Anticipated Discharge Needs: None identified at this time Follow-Up By: 07/13/21 Additional Comments F/U: diet advancement
[2021-07-12] MEDS ORDERED: hydrALAZINE 20 MG/1 ML INJ IV PRN (16:55)
[2021-07-12] MEDS: oxyCODONE 5 MG TAB PO PRN ×2 (17:51→23:46)
[2021-07-12] MEDS: NICOTINE 14 MG/24 HR PATCH TD SCH (21:06)
[2021-07-12] MEDS: ENOXAPARIN 40 MG/0.4 ML INJ SUB-Q SCH (21:07)
[2021-07-12] MEDS ORDERED: AZITHROMYCIN 250 MG TAB PO SCH (22:00)
[2021-07-13] MEDS: diphenhydrAMINE 50 MG/ML VIAL IV SCH ×2 (01:42→09:15)
[2021-07-13] MEDS: cefTRIAXone/NS 2 GM/100 ML 2 GM/100 ML BAG IV SCH (01:42)
[2021-07-13 05:30] VITALS: BP 140/80
[2021-07-13 06:21] LABS: Hematocrit 43.8 % (35.5-45.6); Hemoglobin 14.5 gm/dl (11.8-15.2); Mean Corpuscular HGB Conc 33 % (32-34); Mean Corpuscular Volume 89 fl (84-94); Platelet Count 249 K/mm3 (140-440); Red Blood Count 4.94 M/mm3 (3.65-5.03)
[2021-07-13 06:40] LABS: BUN/Creatinine Ratio 14; Blood Urea Nitrogen 11 mg/dL (9-20); Calcium 8.5 mg/dL (8.4-10.2); Hemolysis Index 3
--- NOTE | 2021-07-13 08:35 | Discharge Summary ---
Providers - Providers Date of Admission: 07/11/21 02:45 Date of discharge: 07/13/21 Attending physician: KAREN LI MD 07/10/21 23:46 Consult to Dietitian/Nutrition [CONS] Routine Physician Instructions: Reason For Exam: Reason for Consult: Evaluate nutritional intake 07/11/21 02:46 Consult to Physician [CONS] Routine Comment: noted/ lisa Consulting Provider: ALEXI DOMINGUEZ Physician Instructions: Reason For Exam: ALTERED MENTAL STATUS, ALCOHOL INTOXICATION Primary care physician: EVAPORATOR SUPERVISOR Hospitalization Reason for admission: altered mental status Condition: Fair Hospital course: Assessment and plan: This is a 25-years- olf AA male with a PmHx Type 1 DM and HTN, current mlt who was brought in the ED via EMS for AMS and alcohol intoxication. Upon his arrival in the ED patient was found to be intoxicated, belligerent, and uncooperative, and agitated which patient received some Haldo, Ativan, and Geodonn. Subsequently patient became hypoxic and was intubated for airway protection. Hospital Course to Date: 07/11/21- Patient is intubated and sedated RASS -5. On low vent settings, plan to transfer patient to the unit. Will do a SAT and SBT trial for possible extubation. 07/12/21- Patient s/p extubation on RA SPO2 at 100%. Upper lips swelling s/p extubation c/f allergic reaction was treated with IV benadryl and pepcid, lip remains swollen. Per CCM lip swolling appears more traumatic than an allergic reaction. Low Na and Cl noted, IFV D/Stanislaw, will continue to monitor. Hypertensive overnight, patient stated he was diagnosed with HTN but has been noncompliant with meds, PRN Hydral ordered for SBP greater than 170. Patient is stable for transfer to the floor. 07/13/21: Lip swelling still causing discomfort but does not appear to be an angioedema type reaction, agree with ccm that this is likely trauma. Blood pressure under better control this morning. Patient is stable for discharge home. Lives with mother. We advise the patient to follow up with primary care physician regarding hopitalization. We also advise the patient to enroll in outpatient substance abuse program for alcoholism. Patient will be discharged home with prescription for hydrochlorthiazide and amlodipine for high blood pressure. He completed his antibiotic course for aspiration pneumonitis and thus will not need additional antibiotics. [facility] Assessment and Plan #Acute Toxic Encephalopathy 2/2 alcohol intoxication- improved #Agitation- resolved - 07/10 CT head reveals small frontal scalp hematoma. No acute intracranial hemorrhage. No acute fracture - Sedation D/C - Patient drowsy but AAO - UDS + THC - Avoid benzodiazepine to reduce the possibility of delirium - Prn analgesia for CPOT greater than 3 - Maintenance of sleep-wake cycle, avoid delirium #CV: Elevated CK #H/o HTN - Patient was found down unsure for how long - Totatl Cr. Kinase 1282 - NSR on the monitor - Hypertensive overnight - Patient stated she has been diagnosed with HTN but has stopped taking his prescription (Lisinorpil) 6months ago - Maintain adequate perfusion - Continue blood pressure monitor per protocol - PRN Hydralazine added for SPB greater than 170 - Continue AC- Lovenox and SCDs for VTE proph #Acute Hypoxic Respitary Failure 2/2 intoxiaction Vs sedation #??Aspiration pneumonitis #Tobacco abuse - 07/10 CXR- Mild increased interstitial prominence and opacities in bilateral lungs - 07/11 CXR- Mild increased pulmonary vascularity - 07/12 CXR- Lungs are clear. No acute findings - Intubated on 06/10, Extubated on 06/11 - Currently on RA - Continue SPO2 monitoring for SPO2 goal above 95% - PRN Oxgen supplement is needed - CCM on consult- Okay for transfer to Med/Surg #GI:Vomitting- resolved - Nausea/vomitting post extubation, resolved today - Continue PRN antiemetic - Continue PPI- Pepcid #:Hyponetremia #Hypochloremia #Hypokalemia- resolved - K initialy 3.3-->34.7 this am - Low Na and Cl, will continue to monitor for now - IVF D/C - Continue to monitor and replace electrolytes as needed - Continue strict intake and output #ID: Lactic Acidosis- resolved ##??Aspiration pneumonitis- resolved - 07/10 CXR- Mild increased interstitial prominence and opacities in bilateral lungs - 07/11 CXR- Mild increased pulmonary vascularity - Repeat CXR 07/12- Lungs are clear. No acute findings - Lactic acid as high as 3.6--> 1.9 today - B.CultureX2 pending - Patient is afebrile, WBCs 10.5 - Continue Empirical Abx- Rocephin and Azithro for 1 more day - Procal and CRP normal - Continue to F/U on B.cult - Daily CBC monitor - Consider ID consult if febrile or/and if leukocytosis occur #Lip Angioedema possible allergic reaction vs trauma - Swollen lip post extubation yesterday - Patient received benadryl and pepcid yesterday - Per CCM angioma appears more traumatic than an allergic reaction - Plan to continue with antihistamine therapy X 48 hours #Endo: Hyperglycemia #H/o Type 1DM #Hypoglycemia-resolved - Initial BG was 50 in the ED--> now hyperglycemic - High dose SSI ACHS - restarted patient's home dose NPH BID - Avoid hypoglycemia - Continue hypoglycemic protocol Disposition: HOME / SELF CARE / HOMELESS Final Discharge Diagnosis (Prints w/discharge instructions): Alcoholic intoxication, hypertensive emergency. Time spent for discharge: 35 - Discharge Diagnoses (1) Hypertensive emergency Status: Acute (2) Acute alcohol intoxication Status: Acute (3) Aspiration pneumonitis Status: Acute Core Measure Documentation - Palliative Care Palliative Care/ Comfort Measures: Not Applicable - Core Measures Any of the following diagnoses?: none Exam - Constitutional Vitals: Temp Pulse Resp BP Pulse Ox 98.2 F 74 20 140/80 91 07/13/21 05:28 07/13/21 05:28 07/13/21 05:28 07/13/21 05:28 07/13/21 05:28 Plan Follow up with: BRAULIO CARTER MD [Primary Care Provider] - 7 Days
[2021-07-13] MEDS: INSULIN LISPRO 100 UNIT/ML SUB-Q SCH (09:11)
[2021-07-13] MEDS: SENNOSIDES/DOCUSATE SODIUM 8.6/50 MG TAB FEEDTUBE SCH (09:15)
[2021-07-13] MEDS: FAMOTIDINE 20 MG TAB PO SCH (09:15)
== END 2021-07-13 12:16 | disposition home or self-care (01) | DRG 208 ==
LOC: EDBD → ED 21:14 → CC1 07-11 02:45 → 3A 07-12 17:22
PROVIDERS: ADMIT Internal Medicine Geriatric Medicine; ATTEND Internal Medicine
PROC: 5A1935Z Respiratory Ventilation, Less than 24 Consecutive Hours (ICD-10-PCS; principal; 2021-07-10)
PROC: 0BH17EZ Insertion of Endotracheal Airway into Trachea, Via Natural or Artificial Opening (ICD-10-PCS; 2021-07-10)
PROC: 4A033R1 Measurement of Arterial Saturation, Peripheral, Percutaneous Approach (ICD-10-PCS; 2021-07-11)
DX: J69.0 Pneumonitis due to inhalation of food and vomit (principal); G92.8 Other toxic encephalopathy; J96.01 Acute respiratory failure with hypoxia; E87.1 Hypo-osmolality and hyponatremia; I16.1 Hypertensive emergency; F10.129 Alcohol abuse with intoxication, unspecified; E87.6 Hypokalemia; R13.12 Dysphagia, oropharyngeal phase; F17.200 Nicotine dependence, unspecified, uncomplicated; E11.65 Type 2 diabetes mellitus with hyperglycemia; Z20.822 Contact with and (suspected) exposure to COVID-19
CPT/HCPCS: 36415; 36600; 70450; 71045; 72125; 80048; 80053; 80307; 80320; 81001; 82140; 82550; 82805; 82962; 83690; 83735; 84100; 84145; 85025; 85027; 85610; 86140; 87040; 93005; 94002; 94003; 94760; G0378; G0480; J0456; J0696; J1200; J1630; J1815; J2060; J2270; J2704; J3010; J3411; J3480; J3486; J7030; J7120; U0003

== ENCOUNTER 2021-10-26 17:06 | Inpatient (IN) | payer SELFPAY ==
[2021-10-26] MEDS ORDERED: SODIUM CHLORIDE 0.9% 1000 ML 1,000 ML IV ONE (17:09)
--- NOTE | 2021-10-26 17:12 | Event Note ---
Date: 10/26/21 The patient was evaluated in the emergency department for symptoms described in the history of present illness. He/she was evaluated in the context of the global COVID-19 pandemic, which necessitated consideration that the patient might be at risk for infection with the virus that causes COVID-19. Institutional protocols and algorithms that pertain to the evaluation of patients at risk for COVID-19 are in a state of rapid change based on information released by regulatory bodies including the CDC and federal and state organizations. These policies and algorithms were followed during the patient's care in the emergency department. Please note that these policies, procedures and recommendations changed on a rapid basis. Verbal report received from emergency medical services. EMS documentation not available at time of chart dictation Medical screening examination note: 26-year-old gentleman brought to the hospital by emergency medical services with an EMS articulated complaint of weakness, hyperglycemia, and alcohol intoxication. EMS reports tachycardia and hyperglycemia in the field. There is no history of reported trauma. Patient is awake, and intoxicated and tachycardic. Appropriate laboratory studies, EKG, IV fluids will be ordered, detailed history and physical examination will be obtained by oncoming ER provider. EMS reports no history of trauma. The patient corroborates this
--- NOTE | 2021-10-26 17:31 | XRay Report ---
CHEST 1 VIEW 10/26/2021 4:25 PM INDICATION / CLINICAL INFORMATION: Alcohol Intoxication. DKA. COMPARISON: 07/12/21. FINDINGS: SUPPORT DEVICES: None. HEART / MEDIASTINUM: The heart size and pulmonary vasculature are normal. LUNGS / PLEURA: No significant pulmonary or pleural abnormality. No pneumothorax. ADDITIONAL FINDINGS: No significant additional findings. IMPRESSION: No acute findings. Signer Name: Rubin Ballesteros MD Signed: 10/26/2021 5:27 PM Workstation Name: [id number]
--- NOTE | 2021-10-26 17:36 | Emergency Department Report ---
ED General Adult HPI - General Chief complaint: High BP Stated complaint: hyperglycemia PUI?: No Time Seen by Provider: 10/26/21 17:34 Source: patient, EMS ( EMS documentation not available at time of chart dictation ), RN notes reviewed Mode of arrival: Stretcher Limitations: Other (Alcohol intoxication) - History of Present Illness Initial comments: The patient was evaluated in the emergency department for symptoms described in the history of present illness. He/she was evaluated in the context of the global COVID-19 pandemic, which necessitated consideration that the patient might be at risk for infection with the virus that causes COVID-19. Institutional protocols and algorithms that pertain to the evaluation of pa tients at risk for COVID-19 are in a state of rapid change based on information released by regulatory bodies including the CDC and federal and state organizations. These policies and algorithms were followed during the patient's care in the emergency department. Please note that these policies, procedures and recommendations changed on a rapid basis. The patient is a 26-year-old gentleman who was brought to the hospital by EMS with the patient and EMS articulated complaint of hyperglycemia. Patient reports that he consumed some alcohol yesterday. He denies physical pain. He denies trauma. EMS reports normal vital signs in the field with the exception of tachycardia, and hyperglycemia. The patient denies dysuria. -: Gradual Consistency: constant Improves with: none Worsens with: none - Related Data Previous Rx's Medication Instructions Recorded Last Taken Type Cyclobenzaprine [Flexeril 10 MG 10 mg PO TID PRN #20 tablet 10/03/16 07/09/21 Rx TAB] Amlodipine Besylate [Norvasc] 5 mg PO DAILY 30 Days #30 tablet 07/13/21 Unknown Rx hydroCHLOROthiazide [Hctz] 12.5 mg PO QDAY 30 Days #30 capsule 07/13/21 Unknown Rx Allergies Allergy/AdvReac Type Severity Reaction Status Date / Time No Known Allergies Allergy Verified 07/10/21 21:31 ED Review of Systems ROS: Stated complaint: hyperglycemia Other details as noted in HPI Constitutional: denies: fever Eyes: denies: eye discharge ENT: denies: epistaxis Respiratory: denies: cough Cardiovascular: denies: chest pain Gastrointestinal: denies: abdominal pain, nausea, vomiting, diarrhea Genitourinary: denies: dysuria Neurological: denies: weakness ED Past Medical Hx - Past Medical History Hx Congestive Heart Failure: No Hx Diabetes: Yes Hx Asthma: No Hx COPD: No - Social History Smoking Status: Current Every Day Smoker - Medications Home Medications: Home Medications Medication Instructions Recorded Confirmed Last Taken Type Cyclobenzaprine [Flexeril 10 MG 10 mg PO TID PRN #20 tablet 10/03/16 07/12/21 07/09/21 Rx TAB] Amlodipine Besylate [Norvasc] 5 mg PO DAILY 30 Days #30 tablet 07/13/21 Unknown Rx hydroCHLOROthiazide [Hctz] 12.5 mg PO QDAY 30 Days #30 capsule 07/13/21 Unknown Rx ED Physical Exam - General Limitations: Other (Intoxication) General appearance: in no apparent distress, appears intoxicated - Head Head exam: Present: atraumatic, normocephalic - Eye Eye exam: Present: normal appearance, EOMI. Absent: nystagmus - ENT ENT exam: Present: normal exam, normal orophraynx, mucous membranes moist, normal external ear exam - Neck Neck exam: Present: normal inspection, full ROM. Absent: tenderness, meningismus - Respiratory Respiratory exam: Present: normal lung sounds bilaterally. Absent: respiratory distress, wheezes, rales, rhonchi, stridor - Cardiovascular Cardiovascular Exam: Present: normal rhythm, tachycardia, normal heart sounds. Absent: bradycardia, irregular rhythm, systolic murmur, diastolic murmur, rubs, gallop - GI/Abdominal GI/Abdominal exam: Present: soft. Absent: distended, tenderness, guarding, rebound, rigid, pulsatile mass - Rectal Rectal exam: Present: deferred - Extremities Exam Extremities exam: Present: normal inspection, full ROM, other (2+ pulses noted in the bilateral upper and lower extremities. There is no palpable cord. negative Homans sign. Muscular compartments are soft. The pelvis is stable.). Absent: pedal edema, calf tenderness - Back Exam Back exam: Present: normal inspection, full ROM. Absent: tenderness, CVA tenderness (R), CVA tenderness (L), paraspinal tenderness, vertebral tenderness - Neurological Exam Neurological exam: Present: alert, normal gait, other (No facial droop. Tongue midline. Extraocular movements intact bilaterally. Facial sensation intact to light touch in V1, V2, V3 distribution bilaterally. 5 and a 5 strength in 4 extremities. Sensation intact to light touch in 4 extremities.) - Psychiatric Psychiatric exam: Present: flat affect - Skin Skin exam: Present: warm, dry, intact, normal color. Absent: rash ED Course Vital Signs 10/26/21 10/26/21 10/26/21 17:12 18:28 18:30 Temperature 98.2 F Pulse Rate 100 H 103 H 102 H Respiratory 16 21 29 H Rate Blood Pressure 147/68 Blood Pressure 151/80 [Right] O2 Sat by Pulse 98 94 Oximetry 10/26/21 10/26/21 18:33 19:00 Temperature 98.0 F Pulse Rate 112 H Respiratory 18 16 Rate Blood Pressure 147/68 Blood Pressure [Right] O2 Sat by Pulse 94 96 Oximetry - Reevaluation(s) Reevaluation #1: 10/26/21 18:37 Differential diagnosis, including not limited to: Alcohol intoxication, dehydration, alcoholic ketosis, diabetic ketoacidosis, electrolyte derangement Assessment and plan: 26-year-old gentleman with known history of diabetes and diabetic ketoacidosis, alcohol abuse and alcoholism, who presents to the ER with hyperglycemia and clinical alcohol intoxication. He is cooperative and not homicidal or suicidal. Place patient on hold. Obtain appropriate laboratory studies, chest x-ray and EKG. No history of trauma from patient as per EMS. Reassess after completion of laboratory studies. 10/26/21 18:59 10/26/21 19:23 Laboratory studies demonstrate metabolic acidosis, hyperglycemia, pseudohyponatremia, and hyperkalemia. Hospital physician, Dr. Barbara Erickson to admit to ICU Patient meets definition criteria of diabetic ketoacidosis. Dr. Forman, critical care physician authorizes admission to the intensive care unit ED Medical Decision Making - Lab Data Result diagrams: 10/26/21 17:45 10/26/21 17:45 Vital Signs 10/26/21 10/26/21 17:12 18:33 Temperature 98.2 F 98.0 F Pulse Rate 100 H Respiratory 16 18 Rate Blood Pressure 151/80 [Right] O2 Sat by Pulse 98 94 Oximetry Lab Results 10/26/21 10/26/21 10/26/21 Range/Units 17:45 17:45 17:45 WBC 4.0 L (4.5-11.0) K/mm3 RBC 5.00 (3.65-5.03) M/mm3 Hgb 14.9 (11.8-15.2) gm/dl Hct 48.1 H (35.5-45.6) % MCV 96 H (84-94) fl MCH 30 (28-32) pg MCHC 31 L (32-34) % RDW 13.4 (13.2-15.2) % Plt Count 211 (140-440) K/mm3 Lymph % (Auto) 34.2 (13.4-35.0) % Tillman % (Auto) 7.9 H (0.0-7.3) % Eos % (Auto) 6.4 H (0.0-4.3) % Baso % (Auto) 1.0 (0.0-1.8) % Lymph # (Auto) 1.4 (1.2-5.4) K/mm3 Tillman # (Auto) 0.3 (0.0-0.8) K/mm3 Eos # (Auto) 0.3 (0.0-0.4) K/mm3 Baso # (Auto) 0.0 (0.0-0.1) K/mm3 Seg Neutrophils % 50.5 (40.0-70.0) % Seg Neutrophils # 2.0 (1.8-7.7) K/mm3 PT 12.8 (12.2-14.9) Sec. INR 0.87 (0.87-1.13) VBG pH 7.315 L (7.320-7.420) Urine Color (Yellow) Urine Turbidity (Clear) Urine pH (5.0-7.0) Ur Specific Spicer (1.003-1.030) Urine Protein (Negative) mg/dL Urine Glucose (UA) (Negative) mg/dL Urine Ketones (Negative) mg/dL Urine Blood (Negative) Urine Nitrite (Negative) Urine Bilirubin (Negative) Urine Urobilinogen (<2.0) mg/dL Ur Leukocyte Esterase (Negative) Urine WBC (Auto) (0.0-6.0) /HPF Urine RBC (Auto) (0.0-6.0) /HPF Urine Mucus /HPF Urine Opiates Screen Urine Methadone Screen Ur Barbiturates Screen Ur Phencyclidine Scrn Ur Amphetamines Screen U Benzodiazepines Scrn Urine Cocaine Screen 10/26/21 10/26/21 Range/Units Unknown Unknown WBC (4.5-11.0) K/mm3 RBC (3.65-5.03) M/mm3 Hgb (11.8-15.2) gm/dl Hct (35.5-45.6) % MCV (84-94) fl MCH (28-32) pg MCHC (32-34) % RDW (13.2-15.2) % Plt Count (140-440) K/mm3 Lymph % (Auto) (13.4-35.0) % Tillman % (Auto) (0.0-7.3) % Eos % (Auto) (0.0-4.3) % Baso % (Auto) (0.0-1.8) % Lymph # (Auto) (1.2-5.4) K/mm3 Tillman # (Auto) (0.0-0.8) K/mm3 Eos # (Auto) (0.0-0.4) K/mm3 Baso # (Auto) (0.0-0.1) K/mm3 Seg Neutrophils % (40.0-70.0) % Seg Neutrophils # (1.8-7.7) K/mm3 PT (12.2-14.9) Sec. INR (0.87-1.13) VBG pH (7.320-7.420) Urine Color Colorless (Yellow) Urine Turbidity Clear (Clear) Urine pH 6.0 (5.0-7.0) Ur Specific Spicer 1.025 (1.003-1.030) Urine Protein <15 mg/dl (Negative) mg/dL Urine Glucose (UA) >=500 (Negative) mg/dL Urine Ketones Tr (Negative) mg/dL Urine Blood Neg (Negative) Urine Nitrite Neg (Negative) Urine Bilirubin Neg (Negative) Urine Urobilinogen < 2.0 (<2.0) mg/dL Ur Leukocyte Esterase Neg (Negative) Urine WBC (Auto) < 1.0 (0.0-6.0) /HPF Urine RBC (Auto) < 1.0 (0.0-6.0) /HPF Urine Mucus Few /HPF Urine Opiates Screen Negative Urine Methadone Screen Negative Ur Barbiturates Screen Negative Ur Phencyclidine Scrn Negative Ur Amphetamines Screen Negative U Benzodiazepines Scrn Negative Urine Cocaine Screen Negative Lab Results 10/26/21 10/26/21 10/26/21 Range/Units 17:45 17:45 17:45 WBC 4.0 L (4.5-11.0) K/mm3 RBC 5.00 (3.65-5.03) M/mm3 Hgb 14.9 (11.8-15.2) gm/dl Hct 48.1 H (35.5-45.6) % MCV 96 H (84-94) fl MCH 30 (28-32) pg MCHC 31 L (32-34) % RDW 13.4 (13.2-15.2) % Plt Count 211 (140-440) K/mm3 Lymph % (Auto) 34.2 (13.4-35.0) % Tillman % (Auto) 7.9 H (0.0-7.3) % Eos % (Auto) 6.4 H (0.0-4.3) % Baso % (Auto) 1.0 (0.0-1.8) % Lymph # (Auto) 1.4 (1.2-5.4) K/mm3 Tillman # (Auto) 0.3 (0.0-0.8) K/mm3 Eos # (Auto) 0.3 (0.0-0.4) K/mm3 Baso # (Auto) 0.0 (0.0-0.1) K/mm3 Seg Neutrophils % 50.5 (40.0-70.0) % Seg Neutrophils # 2.0 (1.8-7.7) K/mm3 PT 12.8 (12.2-14.9) Sec. INR 0.87 (0.87-1.13) VBG pH 7.315 L (7.320-7.420) Urine Color (Yellow) Urine Turbidity (Clear) Urine pH (5.0-7.0) Ur Specific Spicer (1.003-1.030) Urine Protein (Negative) mg/dL Urine Glucose (UA) (Negative) mg/dL Urine Ketones (Negative) mg/dL Urine Blood (Negative) Urine Nitrite (Negative) Urine Bilirubin (Negative) Urine Urobilinogen (<2.0) mg/dL Ur Leukocyte Esterase (Negative) Urine WBC (Auto) (0.0-6.0) /HPF Urine RBC (Auto) (0.0-6.0) /HPF Urine Mucus /HPF Urine Opiates Screen Urine Methadone Screen Ur Barbiturates Screen Ur Phencyclidine Scrn Ur Amphetamines Screen U Benzodiazepines Scrn Urine Cocaine Screen U Marijuana (THC) Screen Drugs of Abuse Note 10/26/21 10/26/21 Range/Units Unknown Unknown WBC (4.5-11.0) K/mm3 RBC (3.65-5.03) M/mm3 Hgb (11.8-15.2) gm/dl Hct (35.5-45.6) % MCV (84-94) fl MCH (28-32) pg MCHC (32-34) % RDW (13.2-15.2) % Plt Count (140-440) K/mm3 Lymph % (Auto) (13.4-35.0) % Tillman % (Auto) (0.0-7.3) % Eos % (Auto) (0.0-4.3) % Baso % (Auto) (0.0-1.8) % Lymph # (Auto) (1.2-5.4) K/mm3 Tillman # (Auto) (0.0-0.8) K/mm3 Eos # (Auto) (0.0-0.4) K/mm3 Baso # (Auto) (0.0-0.1) K/mm3 Seg Neutrophils % (40.0-70.0) % Seg Neutrophils # (1.8-7.7) K/mm3 PT (12.2-14.9) Sec. INR (0.87-1.13) VBG pH (7.320-7.420) Urine Color Colorless (Yellow) Urine Turbidity Clear (Clear) Urine pH 6.0 (5.0-7.0) Ur Specific Spicer 1.025 (1.003-1.030) Urine Protein <15 mg/dl (Negative) mg/dL Urine Glucose (UA) >=500 (Negative) mg/dL Urine Ketones Tr (Negative) mg/dL Urine Blood Neg (Negative) Urine Nitrite Neg (Negative) Urine Bilirubin Neg (Negative) Urine Urobilinogen < 2.0 (<2.0) mg/dL Ur Leukocyte Esterase Neg (Negative) Urine WBC (Auto) < 1.0 (0.0-6.0) /HPF Urine RBC (Auto) < 1.0 (0.0-6.0) /HPF Urine Mucus Few /HPF Urine Opiates Screen Negative Urine Methadone Screen Negative Ur Barbiturates Screen Negative Ur Phencyclidine Scrn Negative Ur Amphetamines Screen Negative U Benzodiazepines Scrn Negative Urine Cocaine Screen Negative U Marijuana (THC) Screen Positive Drugs of Abuse Note Disclamer Vital Signs 10/26/21 10/26/21 10/26/21 17:12 18:28 18:30 Temperature 98.2 F Pulse Rate 100 H 103 H 102 H Respiratory 16 21 29 H Rate Blood Pressure 147/68 Blood Pressure 151/80 [Right] O2 Sat by Pulse 98 94 Oximetry 10/26/21 10/26/21 18:33 19:00 Temperature 98.0 F Pulse Rate 112 H Respiratory 18 16 Rate Blood Pressure 147/68 Blood Pressure [Right] O2 Sat by Pulse 94 96 Oximetry - EKG Data -: EKG Interpreted by Ok EKG shows normal: sinus rhythm Rate: tachycardia - EKG Data 10/26/21 19:24 The EKG is interpreted at 19: 15 Sinus rhythm, 98 bpm. Normal axis, normal intervals, motion artifact, high left ventricular voltage. Not a STEMI peer - Radiology Data Radiology results: pending, report reviewed, image reviewed CHEST 1 VIEW 10/26/2021 4:25 PM INDICATION / CLINICAL INFORMATION: Alcohol Intoxication. DKA. COMPARISON: 07/12/21. FINDINGS: SUPPORT DEVICES: None. HEART / MEDIASTINUM: The heart size and pulmonary vasculature are normal. LUNGS / PLEURA: No significant pulmonary or pleural abnormality. No pneumothorax. ADD ITIONAL FINDINGS: No significant additional findings. IMPRESSION: No acute findings. Signer Name: Rubin Ballesteros MD Signed: 10/26/2021 4:27 PM Workstation Name: [id number] Critical Care Time: Yes Critical care time in (mins) excluding proc time.: 35 Critical care attestation.: If time is entered above; I have spent that time in minutes in the direct care of this critically ill patient, excluding procedure time. ED Disposition Clinical Impression: DKA (diabetic ketoacidoses), Alcohol abuse, Dehydration Disposition: ADMITTED INPATIENT Is pt being admited?: Yes Does the pt Need Aspirin: No Condition: Serious Instructions: Diabetic Ketoacidosis (ED)
[2021-10-26 17:56] LABS: Bilirubin,Urine NEG (Negative); Blood,Urine NEG (Negative); Color,Urine Colorless (Yellow); Mucus,Urine FEW /HPF; Protein,Urine <15 mg/dL mg/dL (Negative); RBC,Urine < 1.0 /HPF (0.0-6.0); Urobilinogen,Urine < 2.0 mg/dL (<2.0); WBC,Urine < 1.0 /HPF (0.0-6.0)
[2021-10-26 18:11] LABS: Amphetamine Screen,Urine Negative; Benzodiazepines Screen,Urine Negative; Cocaine Screen,Urine Negative; Methadone Screen,Urine Negative; Opiate Screen,Urine Negative
[2021-10-26 18:19] LABS: Eosinophils # (Auto) 0.3 K/mm3 (0.0-0.4); Eosinophils % (Auto) 6.4 % (0.0-4.3); Hematocrit 48.1 % (35.5-45.6); Hemoglobin 14.9 gm/dl (11.8-15.2); Lymphocytes # (Auto) 1.4 K/mm3 (1.2-5.4); Lymphocytes % (Auto) 34.2 % (13.4-35.0); Mean Corpuscular HGB Conc 31 % (32-34); Mean Corpuscular Volume 96 fl (84-94); Monocytes # (Auto) 0.3 K/mm3 (0.0-0.8); Monocytes % (Auto) 7.9 % (0.0-7.3); Platelet Count 211 K/mm3 (140-440); Red Cell Distribution Width 13.4 % (13.2-15.2)
[2021-10-26 18:29] LABS: INR 0.87 (0.87-1.13)
[2021-10-26 18:39] LABS: Cannabinoid Screen,Urine Positive
[2021-10-26 19:01] LABS: Alanine Aminotransferase 28 units/L (7-56); Albumin 4.1 g/dL (3.9-5); BUN/Creatinine Ratio 25; Blood Urea Nitrogen 30 mg/dL (9-20); Hemolysis Index 49
[2021-10-26] MEDS ORDERED: DEXTROSE 50% IN WATER (25GM) 50 ML SYRINGE IV PRN (19:21)
[2021-10-26] MEDS ORDERED: INSULIN REGULAR, HUMAN 100 UNITS/1 ML IV ONE (19:21)
[2021-10-26] MEDS ORDERED: LACTATED RINGERS 2,000 ML IV ONE (19:22)
[2021-10-26] MEDS ORDERED: INSULIN REGULAR, HUMAN 100 UNITS in SODIUM CHLORIDE 0.9% 99 ML IV SCH ×2 (20:00→23:00)
[2021-10-26 20:06] LABS: BUN/Creatinine Ratio 23; Blood Urea Nitrogen 30 mg/dL (9-20); Hemolysis Index 143
--- NOTE | 2021-10-26 22:05 | History and Physical Report ---
History of Present Illness Date of examination: 10/26/21 Date of admission: 10/26/2021 Chief complaint: Severe weakness for 2 days History of present illness: 26-year-old -[place] male with history of type 1 diabetes comes in for severe weakness and high blood glucose levels. Patient apparently consumes alcohol yesterday. Patient has not been taking insulin for the last 3 days. Does not give a reason for noncompliance. Patient was already given by insulin without a prescription from [facility]. Patient is on Novolin 70/30 35 units twice a day. Some nausea present. Blood vomiting. - Past Medical History --Congestive Heart Failure: No --Diabetes: Yes -Surgical history N/A - Social History --Smoking Status: Current Every Day Smoker Family history --HTN - Medications Home Medications: Home Medications Medication Instructions Recorded Confirmed Last Taken Type Cyclobenzaprine [Flexeril 10 MG 10 mg PO TID PRN #20 tablet 10/03/16 07/12/21 07/09/21 Rx TAB] Amlodipine Besylate [Norvasc] 5 mg PO DAILY 30 Days #30 tablet 07/13/21 Unknown Rx hydroCHLOROthiazide [Hctz] 12.5 mg PO QDAY 30 Days #30 capsule 07/13/21 Unknown Rx Review of Systems ROS: Stated complaint: hyperglycemia Other details as noted in HPI Constitutional: denies: fever Eyes: denies: eye discharge ENT: denies: epistaxis Respiratory: denies: cough Cardiovascular: denies: chest pain Gastrointestinal: denies: abdominal pain, nausea, vomiting, diarrhea Genitourinary: denies: dysuria Neurological: denies: weakness Medications and Allergies Allergies Allergy/AdvReac Type Severity Reaction Status Date / Time No Known Allergies Allergy Verified 07/10/21 21:31 Home Medications Medication Instructions Recorded Confirmed Last Taken Type Cyclobenzaprine [Flexeril 10 MG 10 mg PO TID PRN #20 tablet 10/03/16 07/12/21 07/09/21 Rx TAB] Amlodipine Besylate [Norvasc] 5 mg PO DAILY 30 Days #30 tablet 07/13/21 Unknown Rx hydroCHLOROthiazide [Hctz] 12.5 mg PO QDAY 30 Days #30 capsule 07/13/21 Unknown Rx Active Meds: Active Medications Dextrose (Dextrose 50% In Water (25gm) 50 Ml Syringe) 0 ml IV Q30MIN PRN; Protocol PRN Reason: Hypoglycemia Insulin Human Regular 100 (units/ Sodium Chloride) 100 mls @ 1 mls/hr IV TITR LENORA; Protocol Last Admin: 10/26/21 20:27 Dose: 8 units/hr, 8 mls/hr Exam - Constitutional Vitals: Temp Pulse Resp BP Pulse Ox 98.0 F 112 H 16 147/68 96 10/26/21 18:33 10/26/21 19:00 10/26/21 19:00 10/26/21 19:00 10/26/21 19:00 General appearance: Present: mild distress, well-nourished - EENT Eyes: Present: PERRL ENT: hearing intact, clear oral mucosa, other (Tongue dry) - Neck Neck: Present: supple, normal ROM - Respiratory Respiratory effort: normal Respiratory: bilateral: CTA - Cardiovascular Heart rate: 78 Rhythm: regular Heart Sounds: Present: S1 & S2. Absent: rub, click - Extremities Extremities: pulses symmetrical, No edema Peripheral Pulses: within normal limits - Abdominal General gastrointestinal: Present: soft, non-tender, non-distended, normal bowel sounds Male genitourinary: Present: normal - Integumentary Integumentary: Present: clear, warm, dry - Musculoskeletal Musculoskeletal: gait normal, strength equal bilaterally - Psychiatric Psychiatric: appropriate mood/affect, intact judgment & insight - Neurologic Neurologic: CNII-XII intact, moves all extremities Results - Labs CBC & Chem 7: 10/26/21 17:45 10/27/21 04:33 Labs: Laboratory Last Values WBC 4.0 K/mm3 (4.5-11.0) L 10/26/21 17:45 RBC 5.00 M/mm3 (3.65-5.03) 10/26/21 17:45 Hgb 14.9 gm/dl (11.8-15.2) 10/26/21 17:45 Hct 48.1 % (35.5-45.6) H 10/26/21 17:45 MCV 96 fl (84-94) H 10/26/21 17:45 MCH 30 pg (28-32) 10/26/21 17:45 MCHC 31 % (32-34) L 10/26/21 17:45 RDW 13.4 % (13.2-15.2) 10/26/21 17:45 Plt Count 211 K/mm3 (140-440) 10/26/21 17:45 Lymph % (Auto) 34.2 % (13.4-35.0) 10/26/21 17:45 [place] % (Auto) 7.9 % (0.0-7.3) H 10/26/21 17:45 Eos % (Auto) 6.4 % (0.0-4.3) H 10/26/21 17:45 Baso % (Auto) 1.0 % (0.0-1.8) 10/26/21 17:45 Lymph # (Auto) 1.4 K/mm3 (1.2-5.4) 10/26/21 17:45 [place] # (Auto) 0.3 K/mm3 (0.0-0.8) 10/26/21 17:45 Eos # (Auto) 0.3 K/mm3 (0.0-0.4) 10/26/21 17:45 Baso # (Auto) 0.0 K/mm3 (0.0-0.1) 10/26/21 17:45 Seg Neutrophils % 50.5 % (40.0-70.0) 10/26/21 17:45 Seg Neutrophils # 2.0 K/mm3 (1.8-7.7) 10/26/21 17:45 PT 12.8 Sec. (12.2-14.9) 10/26/21 17:45 INR 0.87 (0.87-1.13) 10/26/21 17:45 VBG pH 7.315 (7.320-7.420) L 10/26/21 17:45 Sodium 132 mmol/L (137-145) L 10/26/21 19:28 Potassium 5.5 mmol/L (3.6-5.0) H 10/26/21 19:28 Chloride 94.3 mmol/L (98-107) L 10/26/21 19:28 Carbon Dioxide 17 mmol/L (22-30) L 10/26/21 19:28 Anion Gap 26 mmol/L 10/26/21 19:28 BUN 30 mg/dL (9-20) H 10/26/21 19:28 Creatinine 1.3 mg/dL (0.8-1.3) 10/26/21 19:28 Estimated GFR > 60 ml/min 10/26/21 19:28 BUN/Creatinine Ratio 23 % 10/26/21 19:28 Glucose 796 mg/dL (75-100) H* 10/26/21 19:28 Calcium 9.0 mg/dL (8.4-10.2) 10/26/21 19:28 Phosphorus 3.90 mg/dL (2.5-4.5) 10/26/21 19:28 Magnesium 2.00 mg/dL (1.7-2.3) 10/26/21 19:28 Total Bilirubin 0.30 mg/dL (0.1-1.2) 10/26/21 17:45 AST 24 units/L (5-40) 10/26/21 17:45 ALT 28 units/L (7-56) 10/26/21 17:45 Alkaline Phosphatase 103 units/L (35-129) 10/26/21 17:45 Total Protein 7.1 g/dL (6.3-8.2) 10/26/21 17:45 Albumin 4.1 g/dL (3.9-5) 10/26/21 17:45 Albumin/Globulin Ratio 1.4 % 10/26/21 17:45 Urine Color Colorless (Yellow) 10/26/21 Unknown Urine Turbidity Clear (Clear) 10/26/21 Unknown Urine pH 6.0 (5.0-7.0) 10/26/21 Unknown Ur Specific [place] 1.025 (1.003-1.030) 10/26/21 Unknown Urine Protein <15 mg/dl mg/dL (Negative) 10/26/21 Unknown Urine Glucose (UA) >=500 mg/dL (Negative) 10/26/21 Unknown Urine Ketones Tr mg/dL (Negative) 10/26/21 Unknown Urine Blood Neg (Negative) 10/26/21 Unknown Urine Nitrite Neg (Negative) 10/26/21 Unknown Urine Bilirubin Neg (Negative) 10/26/21 Unknown Urine Urobilinogen < 2.0 mg/dL (<2.0) 10/26/21 Unknown Ur Leukocyte Esterase Neg (Negative) 10/26/21 Unknown Urine WBC (Auto) < 1.0 /HPF (0.0-6.0) 10/26/21 Unknown Urine RBC (Auto) < 1.0 /HPF (0.0-6.0) 10/26/21 Unknown Urine Mucus Few /HPF 10/26/21 Unknown Salicylates < 0.3 mg/dL (2.8-20.0) L 10/26/21 17:45 Urine Opiates Screen Negative 10/26/21 Unknown Urine Methadone Screen Negative 10/26/21 Unknown Acetaminophen 5.0 ug/mL (10.0-30.0) L 10/26/21 17:45 Ur Barbiturates Screen Negative 10/26/21 Unknown Ur Phencyclidine Scrn Negative 10/26/21 Unknown Ur Amphetamines Screen Negative 10/26/21 Unknown U Benzodiazepines Scrn Negative 10/26/21 Unknown Urine Cocaine Screen Negative 10/26/21 Unknown U Marijuana (THC) Screen Positive 10/26/21 Unknown Drugs of Abuse Note Disclamer 10/26/21 Unknown Plasma/Serum Alcohol 0.05 % (0-0.07) 10/26/21 17:45 Short CBC 10/26/21 Range/Units 17:45 WBC 4.0 L (4.5-11.0) K/mm3 Hgb 14.9 (11.8-15.2) gm/dl Hct 48.1 H (35.5-45.6) % Plt Count 211 (140-440) K/mm3 BMP 10/26/21 10/26/21 10/26/21 17:45 19:28 21:12 Sodium 128 L 132 L 132 L Potassium 6.0 H 5.5 H 4.3 D Chloride 90.0 L 94.3 L 98.1 Carbon Dioxide 17 L 17 L 20 L BUN 30 H 30 H 26 H Creatinine 1.2 1.3 1.0 Glucose 988 H* 796 H* 496 H Calcium 9.0 9.0 9.1 10/26/21 10/27/21 10/27/21 22:43 01:47 04:33 Sodium 138 143 139 Potassium 4.3 4.6 4.7 Chloride 101.9 106.2 101.6 Carbon Dioxide 27 D 25 24 BUN 24 H 21 H 21 H Creatinine 0.9 0.8 0.9 Glucose 317 H 210 H 354 H Calcium 9.2 8.5 8.2 L Liver Function 10/26/21 10/27/21 Range/Units 17:45 04:33 Total Bilirubin 0.30 0.50 (0.1-1.2) mg/dL AST 24 18 (5-40) units/L ALT 28 26 (7-56) units/L Alkaline Phosphatase 103 84 (35-129) units/L Albumin 4.1 3.7 L (3.9-5) g/dL Urine 10/26/21 Range/Units Unknown Urine Color Colorless (Yellow) Urine pH 6.0 (5.0-7.0) Ur Specific [place] 1.025 (1.003-1.030) Urine Protein <15 mg/dl (Negative) mg/dL Urine Glucose (UA) >=500 (Negative) mg/dL - Imaging and Cardiology Imaging and Cardiology: Chest x-ray No acute findings Assessment and Plan Advance Directives: Yes (Full code) VTE prophylaxis?: Chemical Plan of care discussed with patient/family: Yes - Patient Problems (1) DKA (diabetic ketoacidoses) Current Visit: Yes Status: Acute Qualifiers: Diabetes mellitus type: type 1 Plan to address problem: DKA protocol IV insulin IV and IV fluids Noncompliance counseled (2) Hyponatremia Current Visit: Yes Status: Acute Plan to address problem: Pseudohyponatremia Should correct with correction of blood glucose levels (3) Hyperkalemia Current Visit: Yes Status: Acute Plan to address problem: Should correct with correction of blood glucose levels Patient on IV insulin (4) Metabolic acidosis Current Visit: Yes Status: Acute Plan to address problem: Anion gap of 326 IV bicarb if necessary If the anion gap closes patient can be transferred to the floor (5) DVT prophylaxis Current Visit: Yes Status: Acute Plan to address problem: On heparin and GI prophylaxis (6) Advance care planning Current Visit: Yes Status: Acute Plan to address problem: There is education conducted, care plan discussed, diagnosis discussed, prognosis discussed. Patient is full code. Patient acknowledges understanding and agreement with care plan. +30 minutes.
[2021-10-26] MEDS ORDERED: ACETAMINOPHEN 325 MG TAB PO PRN (22:06)
[2021-10-26] MEDS ORDERED: HYDROmorphone 1 MG/1 ML INJ IV PRN (22:06)
[2021-10-26] MEDS ORDERED: MORPHINE 2 MG/1 ML INJ IV PRN (22:06)
[2021-10-26] MEDS ORDERED: ONDANSETRON 4 MG/2 ML INJ IV PRN (22:06)
[2021-10-26] MEDS ORDERED: SODIUM CHLORIDE 0.9% 1000 ML 1,000 ML IV SCH (22:30)
[2021-10-26 22:54] LABS: BUN/Creatinine Ratio 26; Blood Urea Nitrogen 26 mg/dL (9-20); Calcium 9.1 mg/dL (8.4-10.2); Hemolysis Index 42
[2021-10-26] MEDS ORDERED: D5W/0.45% NACL/KCL 20 MEQ 20 MEQ/1,000 ML BAG IV SCH (23:00)
[2021-10-26] MEDS ORDERED: FAMOTIDINE 20 MG/2 ML INJ IV SCH (23:00)
[2021-10-26] MEDS ORDERED: DEXTROSE 10% *Hypoglycemia IV PRN (23:00)
[2021-10-26 23:18] LABS: BUN/Creatinine Ratio 27; Blood Urea Nitrogen 24 mg/dL (9-20); Calcium 9.2 mg/dL (8.4-10.2); Hemolysis Index 34
[2021-10-27] MEDS ORDERED: DEXTROSE 50% IN WATER (25GM) 50 ML SYRINGE IV PRN (00:12)
[2021-10-27 02:24] LABS: BUN/Creatinine Ratio 26; Blood Urea Nitrogen 21 mg/dL (9-20); Calcium 8.5 mg/dL (8.4-10.2); Hemolysis Index 4
[2021-10-27 05:25] LABS: Alanine Aminotransferase 26 units/L (7-56); Albumin 3.7 g/dL (3.9-5); BUN/Creatinine Ratio 23; Blood Urea Nitrogen 21 mg/dL (9-20); Calcium 8.2 mg/dL (8.4-10.2); Hemolysis Index 10
[2021-10-27] MEDS ORDERED: INSULIN LISPRO 100 UNIT/ML SUB-Q SCH (07:30)
[2021-10-27 08:10] VITALS: BP 146/76
--- NOTE | 2021-10-27 09:10 | Progress Note ---
Assessment and Plan Assessment and plan: 26-year-old -[place] male with history of type 1 diabetes comes in for severe weakness and high blood glucose levels. Patient apparently consumes alcohol yesterday. Patient has not been taking insulin for the last 3 days. Does not give a reason for noncompliance. Patient was already given by insulin without a prescription from [place]. Patient is on Novolin 70/30 35 units twice a day. Some nausea present. Blood vomiting. (1) DKA (diabetic ketoacidoses) Current Visit: Yes Status: Acute Qualifiers: Diabetes mellitus type: type 1 Plan to address problem: DKA protocol IV insulin IV and IV fluids Noncompliance counseled (2) Hyponatremia Current Visit: Yes Status: Acute Plan to address problem: Pseudohyponatremia Should correct with correction of blood glucose levels (3) Hyperkalemia Current Visit: Yes Status: Acute Plan to address problem: Should correct with correction of blood glucose levels Patient on IV insulin (4) Metabolic acidosis Current Visit: Yes Status: Acute Plan to address problem: Anion gap of 326 IV bicarb if necessary If the anion gap closes patient can be transferred to the floor (5) DVT prophylaxis Current Visit: Yes Status: Acute Plan to address problem: On heparin and GI prophylaxis (6) Advance care planning Current Visit: Yes Status: Acute Plan to address problem: There is education conducted, care plan discussed, diagnosis discussed, prognosis discussed. Patient is full code. Patient acknowledges understanding and agreement with care plan. +30 minutes. Disposition ER staff reports that patient left AMA at 8:05 AM today hence patient was not seen by hospitalist during the morning rounds. History Interval history: ER staff reports that patient left AMA at 8:05 AM today hence patient was not seen by hospitalist during the morning rounds. Hospitalist Physical - Constitutional Vitals: Temp Pulse Resp BP Pulse Ox 98.1 F 80 18 146/76 99 10/26/21 23:35 10/27/21 08:07 10/27/21 08:07 10/27/21 08:07 10/27/21 08:07 General appearance: Present: mild distress, well-nourished Results - Labs CBC & Chem 7: 10/26/21 17:45 10/27/21 04:33 Labs: Laboratory Last Values WBC 4.0 K/mm3 (4.5-11.0) L 10/26/21 17:45 RBC 5.00 M/mm3 (3.65-5.03) 10/26/21 17:45 Hgb 14.9 gm/dl (11.8-15.2) 10/26/21 17:45 Hct 48.1 % (35.5-45.6) H 10/26/21 17:45 MCV 96 fl (84-94) H 10/26/21 17:45 MCH 30 pg (28-32) 10/26/21 17:45 MCHC 31 % (32-34) L 10/26/21 17:45 RDW 13.4 % (13.2-15.2) 10/26/21 17:45 Plt Count 211 K/mm3 (140-440) 10/26/21 17:45 Lymph % (Auto) 34.2 % (13.4-35.0) 10/26/21 17:45 [place] % (Auto) 7.9 % (0.0-7.3) H 10/26/21 17:45 Eos % (Auto) 6.4 % (0.0-4.3) H 10/26/21 17:45 Baso % (Auto) 1.0 % (0.0-1.8) 10/26/21 17:45 Lymph # (Auto) 1.4 K/mm3 (1.2-5.4) 10/26/21 17:45 [place] # (Auto) 0.3 K/mm3 (0.0-0.8) 10/26/21 17:45 Eos # (Auto) 0.3 K/mm3 (0.0-0.4) 10/26/21 17:45 Baso # (Auto) 0.0 K/mm3 (0.0-0.1) 10/26/21 17:45 Seg Neutrophils % 50.5 % (40.0-70.0) 10/26/21 17:45 Seg Neutrophils # 2.0 K/mm3 (1.8-7.7) 10/26/21 17:45 PT 12.8 Sec. (12.2-14.9) 10/26/21 17:45 INR 0.87 (0.87-1.13) 10/26/21 17:45 VBG pH 7.315 (7.320-7.420) L 10/26/21 17:45 Sodium 139 mmol/L (137-145) 10/27/21 04:33 Potassium 4.7 mmol/L (3.6-5.0) 10/27/21 04:33 Chloride 101.6 mmol/L (98-107) 10/27/21 04:33 Carbon Dioxide 24 mmol/L (22-30) 10/27/21 04:33 Anion Gap 18 mmol/L 10/27/21 04:33 BUN 21 mg/dL (9-20) H 10/27/21 04:33 Creatinine 0.9 mg/dL (0.8-1.3) 10/27/21 04:33 Estimated GFR > 60 ml/min 10/27/21 04:33 BUN/Creatinine Ratio 23 % 10/27/21 04:33 Glucose 354 mg/dL (75-100) H 10/27/21 04:33 POC Glucose 204 mg/dL (70-105) H 10/26/21 23:42 Calcium 8.2 mg/dL (8.4-10.2) L 10/27/21 04:33 Phosphorus 3.10 mg/dL (2.5-4.5) D 10/26/21 22:43 Magnesium 1.90 mg/dL (1.7-2.3) 10/26/21 22:43 Total Bilirubin 0.50 mg/dL (0.1-1.2) 10/27/21 04:33 AST 18 units/L (5-40) 10/27/21 04:33 ALT 26 units/L (7-56) 10/27/21 04:33 Alkaline Phosphatase 84 units/L (35-129) 10/27/21 04:33 Total Protein 6.1 g/dL (6.3-8.2) L 10/27/21 04:33 Albumin 3.7 g/dL (3.9-5) L 10/27/21 04:33 Albumin/Globulin Ratio 1.5 % 10/27/21 04:33 Urine Color Colorless (Yellow) 10/26/21 Unknown Urine Turbidity Clear (Clear) 10/26/21 Unknown Urine pH 6.0 (5.0-7.0) 10/26/21 Unknown Ur Specific [place] 1.025 (1.003-1.030) 10/26/21 Unknown Urine Protein <15 mg/dl mg/dL (Negative) 10/26/21 Unknown Urine Glucose (UA) >=500 mg/dL (Negative) 10/26/21 Unknown Urine Ketones Tr mg/dL (Negative) 10/26/21 Unknown Urine Blood Neg (Negative) 10/26/21 Unknown Urine Nitrite Neg (Negative) 10/26/21 Unknown Urine Bilirubin Neg (Negative) 10/26/21 Unknown Urine Urobilinogen < 2.0 mg/dL (<2.0) 10/26/21 Unknown Ur Leukocyte Esterase Neg (Negative) 10/26/21 Unknown Urine WBC (Auto) < 1.0 /HPF (0.0-6.0) 10/26/21 Unknown Urine RBC (Auto) < 1.0 /HPF (0.0-6.0) 10/26/21 Unknown Urine Mucus Few /HPF 10/26/21 Unknown Salicylates < 0.3 mg/dL (2.8-20.0) L 10/26/21 17:45 Urine Opiates Screen Negative 10/26/21 Unknown Urine Methadone Screen Negative 10/26/21 Unknown Acetaminophen 5.0 ug/mL (10.0-30.0) L 10/26/21 17:45 Ur Barbiturates Screen Negative 10/26/21 Unknown Ur Phencyclidine Scrn Negative 10/26/21 Unknown Ur Amphetamines Screen Negative 10/26/21 Unknown U Benzodiazepines Scrn Negative 10/26/21 Unknown Urine Cocaine Screen Negative 10/26/21 Unknown U Marijuana (THC) Screen Positive 10/26/21 Unknown Drugs of Abuse Note Disclamer 10/26/21 Unknown Plasma/Serum Alcohol 0.05 % (0-0.07) 10/26/21 17:45 Active Medications - Current Medications Current Medications: Generic Name Dose Route Start Last Admin Trade Name Freq PRN Reason Stop Dose Admin Acetaminophen 650 mg 10/26/21 22:06 Acetaminophen 325 Mg Tab PO Q4H PRN Pain MILD(1-3)/Fever >100.5/HERRON Dextrose 0 ml 10/26/21 23:00 Dextrose 10% *Hypoglycemia IV Q30MIN PRN Hypoglycemia Protocol Dextrose 50 ml 10/27/21 00:12 Dextrose 50% In Water (25gm) 50 Ml Syringe IV Q30MIN PRN Hypoglycemia Protocol Famotidine 20 mg 10/26/21 23:00 10/27/21 00:16 Famotidine 20 Mg/2 Ml Inj IV 20 mg BID LENORA Administration Heparin Sodium (Porcine) 5,000 unit 10/27/21 10:00 Heparin 5,000 Unit/1 Ml Vial SUB-Q Q12HR LENROA Hydromorphone HCl 0.5 mg 10/26/21 22:06 Hydromorphone 1 Mg/1 Ml Inj IV Q3H PRN Pain , Severe (7-10) Potassium Chloride/Dextrose/Sod Cl 20 meq in 1,000 mls @ 125 mls/hr 10/26/21 23:00 D5w/0.45% Nacl/Kcl 20 Meq IV DIRECT LENORA Sodium Chloride 1,000 mls @ 150 mls/hr 10/26/21 22:30 10/26/21 22:30 Nacl 0.9% 1000 Ml IV 150 mls/hr DIRECT LENORA Administration Insulin Human Lispro 0 unit 10/27/21 07:30 Insulin Lispro 100 Unit/Ml SUB-Q ACHS [facility] Protocol Morphine Sulfate 2 mg 10/26/21 22:06 Morphine 2 Mg/1 Ml Inj IV Q4H PRN Pain, Moderate (4-6) Ondansetron HCl 4 mg 10/26/21 22:06 Ondansetron 4 Mg/2 Ml Inj IV Q8H PRN Nausea And Vomiting Sodium Chloride 10 ml 10/27/21 10:00 Sodium Chloride 0.9% 10 Ml Flush Syringe IV BID LENORA Sodium Chloride 10 ml 10/26/21 22:06 Sodium Chloride 0.9% 10 Ml Flush Syringe IV PRN PRN LINE FLUSH
[2021-10-27] MEDS ORDERED: HEPARIN 5,000 UNIT/1 ML VIAL SUB-Q SCH (10:00)
--- NOTE | 2021-10-27 10:01 | Electrocardiograph Report ---
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
== END 2021-10-27 08:07 | disposition left against medical advice (07) | DRG 638 ==
LOC: ED 17:06 → CC1 22:06 → 4A 10-27 00:17
PROVIDERS: ADMIT Internal Medicine; ATTEND Internal Medicine
DX: E10.10 Type 1 diabetes mellitus with ketoacidosis without coma (principal); E87.1 Hypo-osmolality and hyponatremia; E87.5 Hyperkalemia; E86.0 Dehydration; F10.10 Alcohol abuse, uncomplicated
CPT/HCPCS: 36415; 71045; 80048; 80053; 80307; 80320; 81001; 82805; 82962; 83735; 84100; 85025; 85610; 93005; 93010; G0378; J3490; Q0162; Q9967; G0480; J1815; J7030; J7120

== ENCOUNTER 2021-11-13 01:39 | Emergency (ER) | payer SELFPAY ==
[2021-11-13] MEDS ORDERED: INSULIN REGULAR, HUMAN 100 UNITS/1 ML IV ONE ×2 (01:53→03:07)
[2021-11-13] MEDS ORDERED: SODIUM CHLORIDE 0.9% 1000 ML 1,000 ML IV ONE (01:53)
--- NOTE | 2021-11-13 01:57 | Emergency Department Report ---
ED General Adult HPI - General Stated complaint: HYPERGLYCEMIA Time Seen by Provider: 11/13/21 01:52 Source: patient, EMS - History of Present Illness Initial comments: Patient is 26 years old male with history of insulin-dependent diabetes. Patient brought to the emergency room via EMS from home for evaluation of hyperglycemia. Patient stated that he ran out of his insulin needle and he called EMS to bring him some needles but they asked him to come to the ER. EMS stated that patient blood glucose read high. Patient denies any fever or chills. He denies any chest pain, shortness of breath or cough. No nausea or vomiting. - Related Data Previous Rx's Medication Instructions Recorded Last Taken Type Cyclobenzaprine [Flexeril 10 MG 10 mg PO TID PRN #20 tablet 10/03/16 07/09/21 Rx TAB] Amlodipine Besylate [Norvasc] 5 mg PO DAILY 30 Days #30 tablet 07/13/21 Unknown Rx hydroCHLOROthiazide [Hctz] 12.5 mg PO QDAY 30 Days #30 capsule 07/13/21 Unknown Rx Allergies Allergy/AdvReac Type Severity Reaction Status Date / Time No Known Allergies Allergy Verified 10/27/21 12:01 ED Review of Systems ROS: Stated complaint: HYPERGLYCEMIA Other details as noted in HPI Comment: All other systems reviewed and negative Constitutional: denies: chills, fever Respiratory: denies: cough, shortness of breath, SOB with exertion Cardiovascular: denies: chest pain, palpitations Gastrointestinal: denies: abdominal pain, nausea, vomiting, diarrhea, constipation, hematemesis, melena, hematochezia Musculoskeletal: denies: back pain Neurological: denies: headache, weakness, numbness, paresthesias, confusion ED Past Medical Hx - Past Medical History Hx Congestive Heart Failure: No Hx Diabetes: Yes Hx Asthma: No Hx COPD: No - Social History Smoking Status: Current Every Day Smoker - Medications Home Medications: Home Medications Medication Instructions Recorded Confirmed Last Taken Type Cyclobenzaprine [Flexeril 10 MG 10 mg PO TID PRN #20 tablet 10/03/16 07/12/21 07/09/21 Rx TAB] Amlodipine Besylate [Norvasc] 5 mg PO DAILY 30 Days #30 tablet 07/13/21 Unknown Rx hydroCHLOROthiazide [Hctz] 12.5 mg PO QDAY 30 Days #30 capsule 07/13/21 Unknown Rx ED Physical Exam - General General appearance: alert, in no apparent distress - Head Head exam: Present: atraumatic, normocephalic, normal inspection - Eye Eye exam: Present: normal appearance - ENT ENT exam: Present: normal exam, normal orophraynx, mucous membranes moist - Neck Neck exam: Present: normal inspection, full ROM. Absent: tenderness, meningismus - Respiratory Respiratory exam: Present: normal lung sounds bilaterally - Cardiovascular Cardiovascular Exam: Present: regular rate, normal rhythm, normal heart sounds - GI/Abdominal GI/Abdominal exam: Present: soft, normal bowel sounds. Absent: distended, tenderness, guarding, rebound, rigid, organomegaly, mass, bruit, pulsatile mass, hernia - Extremities Exam Extremities exam: Present: normal inspection, full ROM, normal capillary refill. Absent: tenderness, pedal edema, joint swelling, calf tenderness - Back Exam Back exam: Present: normal inspection, full ROM. Absent: CVA tenderness (R), CVA tenderness (L) - Neurological Exam Neurological exam: Present: alert, oriented X3, CN II-XII intact, normal gait, reflexes normal. Absent: motor sensory deficit - Psychiatric Psychiatric exam: Present: normal mood - Skin Skin exam: Present: warm, intact, normal color ED Course Vital Signs 11/13/21 11/13/21 11/13/21 02:14 02:15 02:31 Temperature Pulse Rate 97 H 99 H Respiratory 24 14 25 H Rate Blood Pressure 150/75 133/69 Blood Pressure [Left] O2 Sat by Pulse 98 98 95 Oximetry 11/13/21 11/13/21 11/13/21 02:33 02:45 03:01 Temperature 98.0 F Pulse Rate 94 H 99 H 102 H Respiratory 19 22 22 Rate Blood Pressure 150/73 132/72 133/91 Blood Pressure [Left] O2 Sat by Pulse 98 93 93 Oximetry 11/13/21 11/13/21 11/13/21 03:15 04:14 04:20 Temperature 98.1 F Pulse Rate 96 H Respiratory 23 15 Rate Blood Pressure 144/78 Blood Pressure [Left] O2 Sat by Pulse 97 100 Oximetry 11/13/21 04:21 Temperature 98.4 F Pulse Rate 88 Respiratory 15 Rate Blood Pressure Blood Pressure 144/73 [Left] O2 Sat by Pulse 100 Oximetry ED Medical Decision Making - Lab Data Result diagrams: 11/13/21 02:10 11/13/21 02:10 - Medical Decision Making Patient is 26 years old male with history of insulin-dependent diabetes. Patient brought to the emergency room via EMS from home for evaluation of hyperglycemia. Patient stated that he ran out of his insulin needle and he called EMS to bring him some needles but they asked him to come to the ER. EMS stated that patient blood glucose read high. Patient denies any fever or chills. He denies any chest pain, shortness of breath or cough. No nausea or vomiting. Patient received normal saline, insulin initially 10 units and then 5 units. Blood glucose found to be 770 however his anion gap is 15. Repeat blood glucose is 224. No evidence of DKA. Urine is negative except for positive UDS for methamphetamine. Patient advised to be compliant with his medication and to follow-up with his primary doctor return to the ER if he develop any new symptoms. Critical care attestation.: If time is entered above; I have spent that time in minutes in the direct care of this critically ill patient, excluding procedure time. ED Disposition Clinical Impression: Acute hyperglycemia Disposition: 01 HOME / SELF CARE / HOMELESS Is pt being admited?: No Condition: Stable Instructions: Hyperglycemia, [id number] Referrals: FRANK JEFFREY MD [Primary Care Provider] - 3-5 Days
[2021-11-13 02:30] LABS: Basophils % (Auto) 0.8 % (0.0-1.8); Eosinophils # (Auto) 0.4 K/mm3 (0.0-0.4); Eosinophils % (Auto) 6.8 % (0.0-4.3); Hematocrit 39.4 % (35.5-45.6); Hemoglobin 13.2 gm/dl (11.8-15.2); Lymphocytes # (Auto) 2.3 K/mm3 (1.2-5.4); Lymphocytes % (Auto) 43.9 % (13.4-35.0); Mean Corpuscular HGB Conc 34 % (32-34); Mean Corpuscular Volume 90 fl (84-94); Monocytes # (Auto) 0.4 K/mm3 (0.0-0.8); Monocytes % (Auto) 7.4 % (0.0-7.3); Platelet Count 219 K/mm3 (140-440); Red Blood Count 4.37 M/mm3 (3.65-5.03); Red Cell Distribution Width 13.2 % (13.2-15.2)
[2021-11-13 02:35] LABS: BUN/Creatinine Ratio 14; Blood Urea Nitrogen 14 mg/dL (9-20); Calcium 8.4 mg/dL (8.4-10.2)
[2021-11-13 02:36] LABS: Hemolysis Index 10
[2021-11-13 02:38] LABS: Alanine Aminotransferase 20 units/L (7-56); Albumin 3.3 g/dL (3.9-5)
[2021-11-13 02:39] LABS: Bilirubin,Direct < 0.2 mg/dL (0-0.2)
[2021-11-13 02:43] LABS: Bilirubin,Urine NEG (Negative); Blood,Urine NEG (Negative); Color,Urine Colorless (Yellow); Protein,Urine <15 mg/dL mg/dL (Negative); Urobilinogen,Urine < 2.0 mg/dL (<2.0); WBC,Urine < 1.0 /HPF (0.0-6.0)
[2021-11-13 02:51] LABS: Amphetamine Screen,Urine PRESUMPTIVE POSITIVE; Benzodiazepines Screen,Urine PRESUMPTIVE NEGATIVE; Cannabinoid Screen,Urine PRESUMPTIVE POSITIVE; Cocaine Screen,Urine PRESUMPTIVE NEGATIVE; Methadone Screen,Urine PRESUMPTIVE NEGATIVE; Opiate Screen,Urine PRESUMPTIVE NEGATIVE
[2021-11-13 05:07] VITALS: BP 139/72
== END 2021-11-13 05:09 | disposition home or self-care (01) ==
LOC: ED 01:39
DX: E11.65 Type 2 diabetes mellitus with hyperglycemia (principal); Z79.899 Other long term (current) drug therapy; F17.200 Nicotine dependence, unspecified, uncomplicated
CPT/HCPCS: 36415; 80048; 80076; 80307; 81001; 82962; 85025; 96361; 96374; 96376; 99284; J7030; Q0162; Q9967; J1815

== ENCOUNTER 2021-11-20 04:39 | Inpatient (IN) | payer OTHER ==
[2021-11-20] MEDS ORDERED: SODIUM CHLORIDE 0.9% 1000 ML 1,000 ML IV ONE ×2 (04:58→06:33)
[2021-11-20 05:40] LABS: Basophils % (Auto) 0.9 % (0.0-1.8); Eosinophils # (Auto) 0.3 K/mm3 (0.0-0.4); Eosinophils % (Auto) 5.9 % (0.0-4.3); Hematocrit 44.1 % (35.5-45.6); Lymphocytes % (Auto) 36.3 % (13.4-35.0); Mean Corpuscular HGB Conc 34 % (32-34); Mean Corpuscular Volume 91 fl (84-94); Monocytes # (Auto) 0.5 K/mm3 (0.0-0.8); Monocytes % (Auto) 9.1 % (0.0-7.3); Platelet Count 313 K/mm3 (140-440); Red Blood Count 4.85 M/mm3 (3.65-5.03); Red Cell Distribution Width 13.3 % (13.2-15.2)
[2021-11-20 05:49] LABS: BUN/Creatinine Ratio 23; Blood Urea Nitrogen 27 mg/dL (9-20); Calcium 10.1 mg/dL (8.4-10.2); Hemolysis Index 3
[2021-11-20] MEDS ORDERED: INSULIN REGULAR, HUMAN 100 UNITS/1 ML IV STA (06:34)
--- NOTE | 2021-11-20 06:47 | Emergency Department Report ---
ED General Adult HPI - General Chief complaint: Hyperglycemia Stated complaint: HYPERGLYCEMIA Time Seen by Provider: 11/20/21 06:21 Source: EMS Mode of arrival: Stretcher Limitations: No Limitations - History of Present Illness Initial comments: Chief complaint: "I ran out of insulin." HPI: Is a 18-year-old male with history of insulin-dependent diabetes who presents with elevated blood sugar. He normally takes 66 units of 70/30 insulin twice a day. He denies abdominal pain or vomiting. Denies fever. Denies chest pain. -: Gradual, days(s) (Has been out of insulin for several days, blood sugar has been elevated for several days) Severity scale (0 -10): 0 Consistency: constant Improves with: none Worsens with: none Associated Symptoms: denies other symptoms Treatments Prior to Arrival: none - Related Data Previous Rx's Medication Instructions Recorded Last Taken Type Cyclobenzaprine [Flexeril 10 MG 10 mg PO TID PRN #20 tablet 10/03/16 07/09/21 Rx TAB] Amlodipine Besylate [Norvasc] 5 mg PO DAILY 30 Days #30 tablet 07/13/21 Unknown Rx hydroCHLOROthiazide [Hctz] 12.5 mg PO QDAY 30 Days #30 capsule 07/13/21 Unknown Rx Allergies Allergy/AdvReac Type Severity Reaction Status Date / Time No Known Allergies Allergy Verified 11/20/21 04:49 ED Review of Systems ROS: Stated complaint: HYPERGLYCEMIA Other details as noted in HPI Comment: All other systems reviewed and negative Constitutional: denies: fever, malaise Eyes: denies: as per HPI Respiratory: denies: cough, shortness of breath Cardiovascular: denies: chest pain Gastrointestinal: nausea. denies: abdominal pain, vomiting Skin: denies: rash, lesions ED Past Medical Hx - Past Medical History Previous Medical History?: Yes Hx Congestive Heart Failure: No Hx Diabetes: Yes Hx Asthma: No Hx COPD: No - Surgical History Past Surgical History?: No - Family History Family history: diabetes, hypertension - Social History Smoking Status: Current Every Day Smoker Substance Use Type: None - Medications Home Medications: Home Medications Medication Instructions Recorded Confirmed Last Taken Type Cyclobenzaprine [Flexeril 10 MG 10 mg PO TID PRN #20 tablet 10/03/16 07/12/21 07/09/21 Rx TAB] Amlodipine Besylate [Norvasc] 5 mg PO DAILY 30 Days #30 tablet 07/13/21 Unknown Rx hydroCHLOROthiazide [Hctz] 12.5 mg PO QDAY 30 Days #30 capsule 07/13/21 Unknown Rx ED Physical Exam - General Limitations: No Limitations General appearance: alert, in no apparent distress - Head Head exam: Present: atraumatic, normocephalic - Eye Eye exam: Present: normal appearance - ENT ENT exam: Present: mucous membranes moist - Neck Neck exam: Present: normal inspection, full ROM - Respiratory Respiratory exam: Present: normal lung sounds bilaterally. Absent: respiratory distress, wheezes, rales, rhonchi - Cardiovascular Cardiovascular Exam: Present: regular rate, normal rhythm, normal heart sounds. Absent: systolic murmur, diastolic murmur, rubs, gallop - GI/Abdominal GI/Abdominal exam: Present: soft, normal bowel sounds. Absent: distended, tenderness, guarding, rebound - Rectal Rectal exam: Present: deferred - Extremities Exam Extremities exam: Present: normal inspection - Neurological Exam Neurological exam: Present: alert, oriented X3 - Psychiatric Psychiatric exam: Present: normal affect, normal mood - Skin Skin exam: Present: warm, dry, intact, normal color. Absent: rash ED Course Vital Signs 11/20/21 11/20/21 04:46 09:27 Temperature 98.9 F 97.8 F Pulse Rate 85 81 Respiratory 18 13 Rate Blood Pressure 134/79 126/67 [Left] O2 Sat by Pulse 99 95 Oximetry ED Medical Decision Making - Lab Data Result diagrams: 11/20/21 05:02 11/20/21 09:24 Laboratory Results - last 24 hr 11/20/21 11/20/21 11/20/21 05:02 05:02 05:02 WBC 5.6 RBC 4.85 Hgb 15.0 Hct 44.1 MCV 91 MCH 31 MCHC 34 RDW 13.3 Plt Count 313 Lymph % (Auto) 36.3 H [place] % (Auto) 9.1 H Eos % (Auto) 5.9 H Baso % (Auto) 0.9 Lymph # (Auto) 2.0 [place] # (Auto) 0.5 Eos # (Auto) 0.3 Baso # (Auto) 0.0 Seg Neutrophils % 47.8 Seg Neutrophils # 2.7 VBG pH 7.262 L Sodium 133 L Potassium 4.8 Chloride 88.1 L Carbon Dioxide 17 L Anion Gap 33 BUN 27 H Creatinine 1.2 Estimated GFR > 60 BUN/Creatinine Ratio 23 Glucose 499 H POC Glucose Calcium 10.1 Urine Color Urine Turbidity Urine pH Ur Specific [place] Urine Protein Urine Glucose (UA) Urine Ketones Urine Blood Urine Nitrite Urine Bilirubin Urine Urobilinogen Ur Leukocyte Esterase Urine WBC (Auto) Urine RBC (Auto) U Epithel Cells (Auto) Urine Mucus 11/20/21 11/20/21 11/20/21 09:24 09:26 Unknown WBC RBC Hgb Hct MCV MCH MCHC RDW Plt Count Lymph % (Auto) [place] % (Auto) Eos % (Auto) Baso % (Auto) Lymph # (Auto) [place] # (Auto) Eos # (Auto) Baso # (Auto) Seg Neutrophils % Seg Neutrophils # VBG pH Sodium 134 L Potassium 5.1 H Chloride 97.5 L Carbon Dioxide 13 L Anion Gap 29 BUN 24 H Creatinine 1.0 Estimated GFR > 60 BUN/Creatinine Ratio 24 Glucose 334 H POC Glucose 334 H Calcium 9.0 Urine Color Straw Urine Turbidity Clear Urine pH 5.0 Ur Specific [place] 1.024 Urine Protein <15 mg/dl Urine Glucose (UA) >=500 Urine Ketones 80 Urine Blood Neg Urine Nitrite Neg Urine Bilirubin Neg Urine Urobilinogen < 2.0 Ur Leukocyte Esterase Neg Urine WBC (Auto) < 1.0 Urine RBC (Auto) 1.0 U Epithel Cells (Auto) < 1.0 Urine Mucus Few - Medical Decision Making Diabetic ketoacidosis: Patient is admitted to the hospitalist service Critical care attestation.: If time is entered above; I have spent that time in minutes in the direct care of this critically ill patient, excluding procedure time. ED Disposition Clinical Impression: DKA (diabetic ketoacidoses) Disposition: ADMITTED INPATIENT Is pt being admited?: Yes Does the pt Need Aspirin: No Condition: Stable Instructions: Diabetic Ketoacidosis (ED)
[2021-11-20 09:59] LABS: Bilirubin,Urine NEG (Negative); Blood,Urine NEG (Negative); Color,Urine Straw (Yellow); Mucus,Urine FEW /HPF; Protein,Urine <15 mg/dL mg/dL (Negative); Urobilinogen,Urine < 2.0 mg/dL (<2.0); WBC,Urine < 1.0 /HPF (0.0-6.0)
[2021-11-20 10:04] LABS: BUN/Creatinine Ratio 24; Blood Urea Nitrogen 24 mg/dL (9-20); Hemolysis Index 38
[2021-11-20] MEDS ORDERED: DEXTROSE 50% IN WATER (25GM) 50 ML SYRINGE IV PRN (10:58)
[2021-11-20] MEDS ORDERED: NALOXONE 0.4 MG/1 ML INJ IV PRN (11:00)
[2021-11-20] MEDS ORDERED: INSULIN REGULAR, HUMAN 100 UNITS in SODIUM CHLORIDE 0.9% 99 ML IV SCH (11:00)
[2021-11-20] MEDS ORDERED: ALBUTEROL 2.5 MG/3 ML NEBU IH PRN (11:00)
[2021-11-20] MEDS ORDERED: SODIUM CHLORIDE 0.9% 1000 ML 2,000 ML IV ONE (11:00)
[2021-11-20] MEDS ORDERED: ACETAMINOPHEN 325 MG TAB PO PRN (11:00)
[2021-11-20] MEDS ORDERED: oxyCODONE /ACETAMINOPHEN 5-325MG TAB PO PRN (11:00)
[2021-11-20] MEDS ORDERED: SODIUM BICARB 8.4% 50 MEQ/50 ML SYRINGE IV SCH (11:00)
--- NOTE | 2021-11-20 11:02 | History and Physical Report ---
History of Present Illness Date of examination: 11/20/21 Date of admission: 11/20/21 Chief complaint: High glucose, ran out of insulin History of present illness: Patient is a 26-year-old -[place] male with history of type 1 diabetes comes to the ED with with complaints of "Running out of Insulin for about 3 days or more. Per the Patient he normally takes 66 units of 70/30 insulin twice a day. He denies abdominal pain or vomiting. Denies fever. Denies chest pain. He denies any chest pain, nausea vomiting or Diarrhea. In the ER the patient was given 2 L of fluid along with insulin drip initiated. Patient unfortunately continues to smoke. This will be the second time this year he has been admitted for DKA. Appears not to be compliant with management. Past History Past Medical History: diabetes, hypertension Past Surgical History: Other Social history: smoking, full code. denies: alcohol abuse (Former use) Medications and Allergies Allergies Allergy/AdvReac Type Severity Reaction Status Date / Time No Known Allergies Allergy Verified 11/20/21 04:49 Home Medications Medication Instructions Recorded Confirmed Last Taken Type Cyclobenzaprine [Flexeril 10 MG 10 mg PO TID PRN #20 tablet 10/03/16 07/12/21 07/09/21 Rx TAB] Amlodipine Besylate [Norvasc] 5 mg PO DAILY 30 Days #30 tablet 07/13/21 Unknown Rx hydroCHLOROthiazide [Hctz] 12.5 mg PO QDAY 30 Days #30 capsule 07/13/21 Unknown Rx Active Meds: Active Medications Acetaminophen (Acetaminophen 325 Mg Tab) 650 mg PO Q6H PRN PRN Reason: Pain MILD(1-3)/Fever >100.5/HERRON Albuterol (Albuterol 2.5 Mg/3 Ml Nebu) 2.5 mg IH Q3HRT PRN PRN Reason: Shortness Of Breath Dextrose (Dextrose 50% In Water (25gm) 50 Ml Syringe) 0 ml IV Q30MIN PRN; Protocol PRN Reason: Hypoglycemia Heparin Sodium (Porcine) (Heparin 5,000 Unit/1 Ml Vial) 5,000 unit SUB-Q Q8HR LENORA Insulin Human Regular 100 (units/ Sodium Chloride) 100 mls @ 7 mls/hr IV TITR LENORA; Protocol Sodium Chloride (Nacl 0.9% 1000 Ml) 2,000 mls @ 999 mls/hr IV BOLUS ONE Stop: 11/20/21 13:00 Potassium Chloride/Dextrose/Sod Cl (D5w/0.45% Nacl/Kcl 20 Meq) 20 meq in 1,000 mls @ 125 mls/hr IV DIRECT LENORA Naloxone HCl (Naloxone 0.4 Mg/1 Ml Inj) 0.1 mg IV Q2MIN PRN PRN Reason: Res Rate </= 8 or 02 SAT < 92% Oxycodone/Acetaminophen (Oxycodone /Acetaminophen 5-325mg Tab) 1 tab PO Q6H PRN PRN Reason: Pain, Moderate (4-6) Sodium Bicarbonate (Sodium Bicarb 8.4% 50 Meq/50 Ml Syringe) 100 meq IV ONCE@1100 LENORA Stop: 11/20/21 15:00 Sodium Chloride (Sodium Chloride 0.9% 10 Ml Flush Syringe) 10 ml IV BID LENORA Sodium Chloride (Sodium Chloride 0.9% 10 Ml Flush Syringe) 10 ml IV PRN PRN PRN Reason: LINE FLUSH Review of Systems All systems: negative Constitutional: weakness Exam - Physical Exam Narrative exam: VITAL SIGNS: Reviewed. GENERAL: The patient appears normally developed, Vital signs as documented. HEAD: No signs of head trauma. EYES: Pupils are equal. Extraocular motions intact. EARS: Hearing grossly intact. MOUTH: Oropharynx is normal. NECK: No adenopathy, no JVD. CHEST: Chest with clear breath sounds bilaterally. No wheezes, rales, or rhon chi. CARDIAC: Regular rate and rhythm. S1 and S2, without murmurs, gallops, or rubs. VASCULAR: No Edema. Peripheral pulses normal and equal in all extremities. ABDOMEN: Soft, non tender and non distended. No rebound or guarding, and no masses palpated. Bowel Sounds normal. MUSCULOSKELETAL: Good range of motion of all major joints. Extremities without clubbing, cyanosis or edema. NEUROLOGIC EXAM: Alert and oriented x 3 No focal sensory or strength deficits. Speech normal. Follows commands. PSYCHIATRIC: Mood normal. SKIN: detail exam as documented in skin assessment - Constitutional Vitals: Temp Pulse Resp BP Pulse Ox 97.8 F 80 18 121/53 98 11/20/21 09:27 11/20/21 10:16 11/20/21 10:16 11/20/21 10:16 11/20/21 10:16 Results - Labs CBC & Chem 7: 11/20/21 05:02 11/20/21 11:15 Labs: Laboratory Last Values WBC 5.6 K/mm3 (4.5-11.0) 11/20/21 05:02 RBC 4.85 M/mm3 (3.65-5.03) 11/20/21 05:02 Hgb 15.0 gm/dl (11.8-15.2) 11/20/21 05:02 Hct 44.1 % (35.5-45.6) 11/20/21 05:02 MCV 91 fl (84-94) 11/20/21 05:02 MCH 31 pg (28-32) 11/20/21 05:02 MCHC 34 % (32-34) 11/20/21 05:02 RDW 13.3 % (13.2-15.2) 11/20/21 05:02 Plt Count 313 K/mm3 (140-440) 11/20/21 05:02 Lymph % (Auto) 36.3 % (13.4-35.0) H 11/20/21 05:02 [place] % (Auto) 9.1 % (0.0-7.3) H 11/20/21 05:02 Eos % (Auto) 5.9 % (0.0-4.3) H 11/20/21 05:02 Baso % (Auto) 0.9 % (0.0-1.8) 11/20/21 05:02 Lymph # (Auto) 2.0 K/mm3 (1.2-5.4) 11/20/21 05:02 [place] # (Auto) 0.5 K/mm3 (0.0-0.8) 11/20/21 05:02 Eos # (Auto) 0.3 K/mm3 (0.0-0.4) 11/20/21 05:02 Baso # (Auto) 0.0 K/mm3 (0.0-0.1) 11/20/21 05:02 Seg Neutrophils % 47.8 % (40.0-70.0) 11/20/21 05:02 Seg Neutrophils # 2.7 K/mm3 (1.8-7.7) 11/20/21 05:02 VBG pH 7.262 (7.320-7.420) L 11/20/21 05:02 Sodium 134 mmol/L (137-145) L 11/20/21 09:24 Potassium 5.1 mmol/L (3.6-5.0) H 11/20/21 09:24 Chloride 97.5 mmol/L (98-107) L 11/20/21 09:24 Carbon Dioxide 13 mmol/L (22-30) L 11/20/21 09:24 Anion Gap 29 mmol/L 11/20/21 09:24 BUN 24 mg/dL (9-20) H 11/20/21 09:24 Creatinine 1.0 mg/dL (0.8-1.3) 11/20/21 09:24 Estimated GFR > 60 ml/min 11/20/21 09:24 BUN/Creatinine Ratio 24 % 11/20/21 09:24 Glucose 334 mg/dL (75-100) H 11/20/21 09:24 POC Glucose 334 mg/dL (70-105) H 11/20/21 09:26 Calcium 9.0 mg/dL (8.4-10.2) 11/20/21 09:24 Urine Color Straw (Yellow) 11/20/21 Unknown Urine Turbidity Clear (Clear) 11/20/21 Unknown Urine pH 5.0 (5.0-7.0) 11/20/21 Unknown Ur Specific [place] 1.024 (1.003-1.030) 11/20/21 Unknown Urine Protein <15 mg/dl mg/dL (Negative) 11/20/21 Unknown Urine Glucose (UA) >=500 mg/dL (Negative) 11/20/21 Unknown Urine Ketones 80 mg/dL (Negative) 11/20/21 Unknown Urine Blood Neg (Negative) 11/20/21 Unknown Urine Nitrite Neg (Negative) 11/20/21 Unknown Urine Bilirubin Neg (Negative) 11/20/21 Unknown Urine Urobilinogen < 2.0 mg/dL (<2.0) 11/20/21 Unknown Ur Leukocyte Esterase Neg (Negative) 11/20/21 Unknown Urine WBC (Auto) < 1.0 /HPF (0.0-6.0) 11/20/21 Unknown Urine RBC (Auto) 1.0 /HPF (0.0-6.0) 11/20/21 Unknown U Epithel Cells (Auto) < 1.0 /HPF (0-13.0) 11/20/21 Unknown Urine Mucus Few /HPF 11/20/21 Unknown Assessment and Plan Assessment and plan: Patient is a 26-year-old -[place] male with history of type 1 diabetes comes to the ED with with complaints of "Running out of Insulin for about 3 days or more. Per the Patient he normally takes 66 units of 70/30 insulin twice a day. He denies abdominal pain or vomiting. Denies fever. Denies chest pain. He denies any chest pain, nausea vomiting or Diarrhea. In the ER the patient was given 2 L of fluid along with insulin drip initiated. Patient unfortunately continues to smoke. This will be the second time this year he has been admitted for DKA. Appears not to be compliant with management. DKA Metabolic acidosis secondary to DKA Diabetes mellitus type 1 uncontrolled Hyperkalemia Noncompliance with management and therapy EtOH use disorder Nicotine abuse plan Admit to ICU due to DKA management Insulin drip as ordered We'll give 3 L extra fluids have discussed with the ED nurse Monitor electrolytes expect resolution of hyperkalemia but if worsening will obtain further management therapy with Kayexalate and plus or minus nephrology consultation Extensive counseling given to the patient he verbalized understanding. Monitor for EtOH withdrawal he does have a past history of EtOH use but denies any recent use. Tobacco cessation counseling. Advance Directives: Yes Plan of care discussed with patient/family: Yes
[2021-11-20] MEDS ORDERED: DEXTROSE 10% *Hypoglycemia IV PRN (11:23)
[2021-11-20 11:53] LABS: BUN/Creatinine Ratio 23; Blood Urea Nitrogen 23 mg/dL (9-20); Calcium 9.1 mg/dL (8.4-10.2); Hemolysis Index 27
[2021-11-20] MEDS: HEPARIN 5,000 UNIT/1 ML VIAL SUB-Q SCH ×4 (12:05→21:29)
[2021-11-20 12:12] LABS: Chol/HDL Ratio 3.62 %
--- NOTE | 2021-11-20 12:31 | Consultation ---
History of Present Illness - Reason for Consult Consult date: 11/20/21 DKA Requesting physician: KARIS PERRY - History of Present Illness 26 y/o male admitted with DKA. Anion Gap at 33 and BS at 499. Patient has been out of insulin for several days. Past History Past Medical History: diabetes, hypertension Medications and Allergies Allergies Allergy/AdvReac Type Severity Reaction Status Date / Time No Known Allergies Allergy Verified 11/20/21 04:49 Home Medications Medication Instructions Recorded Confirmed Last Taken Type Cyclobenzaprine [Flexeril 10 MG 10 mg PO TID PRN #20 tablet 10/03/16 07/12/21 07/09/21 Rx TAB] Amlodipine Besylate [Norvasc] 5 mg PO DAILY 30 Days #30 tablet 07/13/21 Unknown Rx hydroCHLOROthiazide [Hctz] 12.5 mg PO QDAY 30 Days #30 capsule 07/13/21 Unknown Rx Active Meds: Active Medications Acetaminophen (Acetaminophen 325 Mg Tab) 650 mg PO Q6H PRN PRN Reason: Pain MILD(1-3)/Fever >100.5/HERRON Albuterol (Albuterol 2.5 Mg/3 Ml Nebu) 2.5 mg IH Q3HRT PRN PRN Reason: Shortness Of Breath Dextrose (Dextrose 50% In Water (25gm) 50 Ml Syringe) 0 ml IV Q30MIN PRN; Protocol PRN Reason: Hypoglycemia Dextrose (Dextrose 10% *Hypoglycemia) 0 ml IV PRN PRN PRN Reason: Hypoglycemia Heparin Sodium (Porcine) (Heparin 5,000 Unit/1 Ml Vial) 5,000 unit SUB-Q Q8HR LENORA Last Admin: 11/20/21 12:05 Dose: Not Given Insulin Human Regular 100 (units/ Sodium Chloride) 100 mls @ 7 mls/hr IV TITR LENORA; Protocol Last Admin: 11/20/21 12:10 Dose: 7 units/hr, 7 mls/hr Sodium Chloride (Nacl 0.9% 1000 Ml) 2,000 mls @ 999 mls/hr IV BOLUS ONE Stop: 11/20/21 13:00 Last Admin: 11/20/21 12:09 Dose: 999 mls/hr Potassium Chloride/Dextrose/Sod Cl (D5w/0.45% Nacl/Kcl 20 Meq) 20 meq in 1,000 mls @ 125 mls/hr IV DIRECT LENORA Naloxone HCl (Naloxone 0.4 Mg/1 Ml Inj) 0.1 mg IV Q2MIN PRN PRN Reason: Res Rate </= 8 or 02 SAT < 92% Oxycodone/Acetaminophen (Oxycodone /Acetaminophen 5-325mg Tab) 1 tab PO Q6H PRN PRN Reason: Pain, Moderate (4-6) Sodium Bicarbonate (Sodium Bicarb 8.4% 50 Meq/50 Ml Syringe) 100 meq IV ONCE@1100 LENORA Stop: 11/20/21 15:00 Last Admin: 11/20/21 12:06 Dose: 100 meq Sodium Chloride (Sodium Chloride 0.9% 10 Ml Flush Syringe) 10 ml IV BID [facility] Sodium Chloride (Sodium Chloride 0.9% 10 Ml Flush Syringe) 10 ml IV PRN PRN PRN Reason: LINE FLUSH Review of Systems All systems: negative Exam - Constitutional Vitals: Temp Pulse Resp BP Pulse Ox 97.8 F 80 18 121/53 98 11/20/21 09:27 11/20/21 10:16 11/20/21 10:16 11/20/21 10:16 11/20/21 10:16 Results - Labs CBC & Chem 7: 11/20/21 05:02 11/20/21 11:15 Labs: Abnormal lab results 11/20/21 11/20/21 11/20/21 Range/Units 05:02 05:02 05:02 Lymph % (Auto) 36.3 H (13.4-35.0) % [place] % (Auto) 9.1 H (0.0-7.3) % Eos % (Auto) 5.9 H (0.0-4.3) % VBG pH 7.262 L (7.320-7.420) Sodium 133 L (137-145) mmol/L Potassium (3.6-5.0) mmol/L Chloride 88.1 L (98-107) mmol/L Carbon Dioxide 17 L (22-30) mmol/L BUN 27 H (9-20) mg/dL Glucose 499 H (75-100) mg/dL POC Glucose (70-105) mg/dL 11/20/21 11/20/21 11/20/21 Range/Units 09:24 09:26 11:15 Lymph % (Auto) (13.4-35.0) % [place] % (Auto) (0.0-7.3) % Eos % (Auto) (0.0-4.3) % VBG pH (7.320-7.420) Sodium 134 L 134 L (137-145) mmol/L Potassium 5.1 H 5.2 H (3.6-5.0) mmol/L Chloride 97.5 L 94.1 L (98-107) mmol/L Carbon Dioxide 13 L 16 L (22-30) mmol/L BUN 24 H 23 H (9-20) mg/dL Glucose 334 H 373 H (75-100) mg/dL POC Glucose 334 H (70-105) mg/dL 11/20/21 Range/Units 12:04 Lymph % (Auto) (13.4-35.0) % [place] % (Auto) (0.0-7.3) % Eos % (Auto) (0.0-4.3) % VBG pH (7.320-7.420) Sodium (137-145) mmol/L Potassium (3.6-5.0) mmol/L Chloride (98-107) mmol/L Carbon Dioxide (22-30) mmol/L BUN (9-20) mg/dL Glucose (75-100) mg/dL POC Glucose 357 H (70-105) mg/dL Assessment and Plan 26 y/o male with known insulin dependent diabetes admitted with DKA 1. IV hydration 2. NPO 3. Agree with INsulin drip 4. Needs q6hour BMPS for at least the next 48 hours 5. Once gap closes can stop insulin drip 6. Continue saline until sugar is less than 250 and then switch to D5 with some potassium supplementation 7. Guarded prognosis. CCT 31 minutes.
[2021-11-20 16:43] LABS: BUN/Creatinine Ratio 20; Blood Urea Nitrogen 18 mg/dL (9-20); Calcium 7.9 mg/dL (8.4-10.2); Hemolysis Index 19
[2021-11-20] MEDS: D5W/0.45% NACL/KCL 20 MEQ 20 MEQ/1,000 ML BAG IV SCH (18:18)
[2021-11-20 21:12] LABS: BUN/Creatinine Ratio 18; Blood Urea Nitrogen 16 mg/dL (9-20); Calcium 8.5 mg/dL (8.4-10.2); Hemolysis Index 8
[2021-11-21] MEDS: D5W/0.45% NACL/KCL 20 MEQ 20 MEQ/1,000 ML BAG IV SCH (02:21)
[2021-11-21 02:24] LABS: BUN/Creatinine Ratio 16; Blood Urea Nitrogen 14 mg/dL (9-20); Calcium 7.9 mg/dL (8.4-10.2); Hemolysis Index 13
[2021-11-21] MEDS: HEPARIN 5,000 UNIT/1 ML VIAL SUB-Q SCH (05:25)
[2021-11-21] MEDS ORDERED: INSULIN LISPRO 100 UNIT/ML SUB-Q SCH ×3 (06:00→11:30)
[2021-11-21 07:00] LABS: Basophils # (Auto) 0.1 K/mm3 (0.0-0.1); Basophils % (Auto) 1.2 % (0.0-1.8); Eosinophils # (Auto) 0.5 K/mm3 (0.0-0.4); Eosinophils % (Auto) 8.3 % (0.0-4.3); Hematocrit 43.1 % (35.5-45.6); Lymphocytes # (Auto) 2.6 K/mm3 (1.2-5.4); Lymphocytes % (Auto) 46.1 % (13.4-35.0); Mean Corpuscular HGB Conc 33 % (32-34); Mean Corpuscular Volume 90 fl (84-94); Monocytes # (Auto) 0.5 K/mm3 (0.0-0.8); Monocytes % (Auto) 8.3 % (0.0-7.3); Platelet Count 276 K/mm3 (140-440); Red Blood Count 4.77 M/mm3 (3.65-5.03); Red Cell Distribution Width 13.4 % (13.2-15.2)
[2021-11-21 07:13] LABS: Alanine Aminotransferase 23 units/L (7-56); Albumin 3.2 g/dL (3.9-5); BUN/Creatinine Ratio 16; Blood Urea Nitrogen 13 mg/dL (9-20); Calcium 8.2 mg/dL (8.4-10.2); Hemolysis Index 11
[2021-11-21] MEDS ORDERED: INSULIN GLARGINE 100 UNITS/ML SUB-Q SCH ×2 (08:00→10:00)
--- NOTE | 2021-11-21 09:46 | Progress Note ---
Assessment and Plan 26 y/o male with known insulin dependent diabetes admitted with DKA 11/21/21: ANion gap closed. Feed patient and administer long acting insulin. Stable for transfer to floor if patient can keep down food. 1. IV hydration 2. NPO 3. Agree with INsulin drip 4. Needs q6hour BMPS for at least the next 48 hours 5. Once gap closes can stop insulin drip 6. Continue saline until sugar is less than 250 and then switch to D5 with some potassium supplementation 7. Guarded prognosis. CCT 31 minutes. Subjective Date of service: 11/21/21 Interval history: Anion gap has closed. Long acting insulin already ordered. Objective - Constitutional Vitals: Vital Signs - 12hr 11/20/21 11/20/21 11/20/21 22:00 22:31 23:00 Temperature Pulse Rate 77 77 70 Respiratory 18 18 16 Rate Blood Pressure 134/73 134/73 133/63 O2 Sat by Pulse 90 93 90 Oximetry 11/20/21 11/20/21 11/21/21 23:27 23:31 00:00 Temperature Pulse Rate 80 76 79 Respiratory 20 19 19 Rate Blood Pressure 133/63 133/63 127/68 O2 Sat by Pulse 90 91 96 Oximetry 11/21/21 11/21/21 11/21/21 00:31 01:00 01:31 Temperature Pulse Rate 73 69 70 Respiratory 17 19 18 Rate Blood Pressure 127/68 131/61 131/61 O2 Sat by Pulse 96 91 96 Oximetry 11/21/21 11/21/21 11/21/21 02:00 02:31 03:00 Temperature Pulse Rate 71 86 65 Respiratory 17 22 16 Rate Blood Pressure 125/70 125/70 125/72 O2 Sat by Pulse 93 91 95 Oximetry 11/21/21 11/21/21 11/21/21 03:31 04:00 04:31 Temperature 98.0 F Pulse Rate 59 L 67 67 Respiratory 10 L 17 16 Rate Blood Pressure 125/72 131/71 131/71 O2 Sat by Pulse 95 96 100 Oximetry 11/21/21 11/21/21 11/21/21 05:00 05:31 06:01 Temperature Pulse Rate 63 69 74 Respiratory 16 16 11 L Rate Blood Pressure 130/77 130/77 127/82 O2 Sat by Pulse 97 98 96 Oximetry 11/21/21 11/21/21 11/21/21 06:31 07:00 07:31 Temperature Pulse Rate 68 70 69 Respiratory 10 L 17 18 Rate Blood Pressure 127/82 141/73 141/73 O2 Sat by Pulse 100 100 96 Oximetry 11/21/21 11/21/21 11/21/21 08:00 08:31 09:00 Temperature 97.9 F Pulse Rate 70 77 77 Respiratory 18 16 23 Rate Blood Pressure 129/82 129/82 149/77 O2 Sat by Pulse 99 95 95 Oximetry General appearance: Present: no acute distress - Labs CBC & Chem 7: 11/21/21 06:31 11/21/21 06:31 Labs: Abnormal lab results 11/20/21 11/20/21 11/20/21 Range/Units 09:24 11:15 12:04 Lymph % (Auto) (13.4-35.0) % [place] % (Auto) (0.0-7.3) % Eos % (Auto) (0.0-4.3) % Eos # (Auto) (0.0-0.4) K/mm3 Seg Neutrophils % (40.0-70.0) % Sodium 134 L 134 L (137-145) mmol/L Potassium 5.1 H 5.2 H (3.6-5.0) mmol/L Chloride 97.5 L 94.1 L (98-107) mmol/L Carbon Dioxide 13 L 16 L (22-30) mmol/L BUN 24 H 23 H (9-20) mg/dL Glucose 334 H 373 H (75-100) mg/dL POC Glucose 357 H (70-105) mg/dL Calcium (8.4-10.2) mg/dL Total Protein (6.3-8.2) g/dL Albumin (3.9-5) g/dL 11/20/21 11/20/21 11/20/21 Range/Units 13:09 14:38 15:58 Lymph % (Auto) (13.4-35.0) % [place] % (Auto) (0.0-7.3) % Eos % (Auto) (0.0-4.3) % Eos # (Auto) (0.0-0.4) K/mm3 Seg Neutrophils % (40.0-70.0) % Sodium (137-145) mmol/L Potassium (3.6-5.0) mmol/L Chloride (98-107) mmol/L Carbon Dioxide 20 L (22-30) mmol/L BUN (9-20) mg/dL Glucose 142 H (75-100) mg/dL POC Glucose 309 H 182 H (70-105) mg/dL Calcium 7.9 L (8.4-10.2) mg/dL Total Protein (6.3-8.2) g/dL Albumin (3.9-5) g/dL 11/20/21 11/20/21 11/20/21 Range/Units 19:30 20:31 20:39 Lymph % (Auto) (13.4-35.0) % [place] % (Auto) (0.0-7.3) % Eos % (Auto) (0.0-4.3) % Eos # (Auto) (0.0-0.4) K/mm3 Seg Neutrophils % (40.0-70.0) % Sodium (137-145) mmol/L Potassium (3.6-5.0) mmol/L Chloride 97.5 L (98-107) mmol/L Carbon Dioxide 19 L (22-30) mmol/L BUN (9-20) mg/dL Glucose 191 H (75-100) mg/dL POC Glucose 119 H 189 H (70-105) mg/dL Calcium (8.4-10.2) mg/dL Total Protein (6.3-8.2) g/dL Albumin (3.9-5) g/dL 11/20/21 11/20/21 11/20/21 Range/Units 21:26 22:29 23:11 Lymph % (Auto) (13.4-35.0) % [place] % (Auto) (0.0-7.3) % Eos % (Auto) (0.0-4.3) % Eos # (Auto) (0.0-0.4) K/mm3 Seg Neutrophils % (40.0-70.0) % Sodium (137-145) mmol/L Potassium (3.6-5.0) mmol/L Chloride (98-107) mmol/L Carbon Dioxide (22-30) mmol/L BUN (9-20) mg/dL Glucose (75-100) mg/dL POC Glucose 223 H 242 H 266 H (70-105) mg/dL Calcium (8.4-10.2) mg/dL Total Protein (6.3-8.2) g/dL Albumin (3.9-5) g/dL 11/21/21 11/21/21 11/21/21 Range/Units 00:09 01:14 01:46 Lymph % (Auto) (13.4-35.0) % [place] % (Auto) (0.0-7.3) % Eos % (Auto) (0.0-4.3) % Eos # (Auto) (0.0-0.4) K/mm3 Seg Neutrophils % (40.0-70.0) % Sodium (137-145) mmol/L Potassium (3.6-5.0) mmol/L Chloride (98-107) mmol/L Carbon Dioxide (22-30) mmol/L BUN (9-20) mg/dL Glucose 146 H (75-100) mg/dL POC Glucose 236 H 147 H (70-105) mg/dL Calcium 7.9 L (8.4-10.2) mg/dL Total Protein (6.3-8.2) g/dL Albumin (3.9-5) g/dL 11/21/21 11/21/21 11/21/21 Range/Units 02:19 06:31 06:31 Lymph % (Auto) 46.1 H (13.4-35.0) % [place] % (Auto) 8.3 H (0.0-7.3) % Eos % (Auto) 8.3 H (0.0-4.3) % Eos # (Auto) 0.5 H (0.0-0.4) K/mm3 Seg Neutrophils % 36.1 L (40.0-70.0) % Sodium 133 L (137-145) mmol/L Potassium (3.6-5.0) mmol/L Chloride (98-107) mmol/L Carbon Dioxide 19 L (22-30) mmol/L BUN (9-20) mg/dL Glucose 136 H (75-100) mg/dL POC Glucose 106 H (70-105) mg/dL Calcium 8.2 L (8.4-10.2) mg/dL Total Protein 5.6 L (6.3-8.2) g/dL Albumin 3.2 L (3.9-5) g/dL 11/21/21 Range/Units 08:12 Lymph % (Auto) (13.4-35.0) % [place] % (Auto) (0.0-7.3) % Eos % (Auto) (0.0-4.3) % Eos # (Auto) (0.0-0.4) K/mm3 Seg Neutrophils % (40.0-70.0) % Sodium (137-145) mmol/L Potassium (3.6-5.0) mmol/L Chloride (98-107) mmol/L Carbon Dioxide (22-30) mmol/L BUN (9-20) mg/dL Glucose (75-100) mg/dL POC Glucose 255 H (70-105) mg/dL Calcium (8.4-10.2) mg/dL Total Protein (6.3-8.2) g/dL Albumin (3.9-5) g/dL Medications & Allergies - Medications Allergies/Adverse Reactions: Allergies No Known Allergies Allergy (Verified 11/20/21 04:49) Home Medications: Home Medications Medication Instructions Recorded Confirmed Last Taken Type Insulin NPH Hum/Reg Insulin Hm 30 units SC BID 11/20/21 11/20/21 Unknown History [Humulin 70-30 Vial] Insulin Regular, Human [Humulin R] See Protocol SC TID 11/20/21 11/20/21 Unknown History Active Medications: Generic Name Dose Route Start Last Admin Trade Name Freq PRN Reason Stop Dose Admin Acetaminophen 650 mg 11/20/21 11:00 Acetaminophen 325 Mg Tab PO Q6H PRN Pain MILD(1-3)/Fever >100.5/HERRON Albuterol 2.5 mg 11/20/21 11:00 Albuterol 2.5 Mg/3 Ml Nebu IH Q3HRT PRN Shortness Of Breath Dextrose 0 ml 11/20/21 11:23 Dextrose 10% *Hypoglycemia IV PRN PRN Hypoglycemia Heparin Sodium (Porcine) 5,000 unit 11/20/21 11:00 11/21/21 05:25 Heparin 5,000 Unit/1 Ml Vial SUB-Q Not Given Q8HR LENORA Insulin Glargine 30 units 11/21/21 08:00 11/21/21 09:17 Insulin Glargine 100 Units/Ml SUB-Q 30 units DAILY LENORA Administration Insulin Human Lispro 0 unit 11/21/21 11:30 Insulin Lispro 100 Unit/Ml SUB-Q ACHS LENORA Protocol Naloxone HCl 0.1 mg 11/20/21 11:00 Naloxone 0.4 Mg/1 Ml Inj IV Q2MIN PRN Res Rate </= 8 or 02 SAT < 92% Oxycodone/Acetaminophen 1 tab 11/20/21 11:00 Oxycodone /Acetaminophen 5-325mg Tab PO Q6H PRN Pain, Moderate (4-6) Sodium Chloride 10 ml 11/20/21 22:00 11/20/21 21:22 Sodium Chloride 0.9% 10 Ml Flush Syringe IV 10 ml BID LENORA Administration Sodium Chloride 10 ml 11/20/21 11:00 Sodium Chloride 0.9% 10 Ml Flush Syringe IV PRN PRN LINE FLUSH
--- NOTE | 2021-11-21 09:59 | Discharge Summary ---
Providers - Providers Date of Admission: 11/20/21 10:38 Date of discharge: 11/21/21 Attending physician: KAREN LI MD 11/20/21 10:17 Consult to Physician [CONS] Stat Comment: Consulting Provider: IZABELLA BOLTON Physician Instructions: Reason For Exam: DKA CCU admt 11/20/21 10:38 Consult to Dietitian/Nutrition [CONS] Routine Physician Instructions: Reason For Exam: Reason for Consult: Diet education Primary care physician: FRANK JEFFREY Hospitalization Condition: Stable Hospital course: This is a 26-year-old male with type 1 diabetes with current nicotine abuse who presented to emergency department on 11/20 with complaints of "Running out of Insulin for about 3 days or more. Per the Patient he normally takes 66 units of 70/30 insulin twice a day. He denies abdominal pain or vomiting. Denies fever. Denies chest pain.In the ER the patient was given 2 L of fluid along with insulin drip initiated. Patient's anion gap closed and he was transitioned to SSI and long-acting insulin initiated today. [facility] [facility] and the importance of continuing his medications. He has been educated on good Rx. Patient will be discharged home to continue his medical management. Assessment and plan: DKA Metabolic acidosis secondary to DKA Diabetes mellitus type 1, uncontrolled Hyponatremia Protein calorie malnutrition Noncompliance with management and therapy EtOH use disorder Nicotine abuse -Given 5 L IVF in the ED -S/p insulin drip -Transition to SSI and long-acting insulin -Continue home management and follow-up with primary care physician -Continue controlled carbohydrate diet -Continue monitoring blood glucose levels at home per primary care physician instructions -Encourage medical management and compliance -Nicotine and EtOH abuse cessation counseling provided -Encourage outpatient follow-up with data control clerk supervisor for sleep study Disposition: HOME / SELF CARE / HOMELESS Final Discharge Diagnosis (Prints w/discharge instructions): Diabetic ketoacidosis acidosis, metabolic acidosis, hyponatremia, protein calorie malnutrition, EtOH/nicotine abuse Time spent for discharge: 45 Core Measure Documentation - Palliative Care Palliative Care/ Comfort Measures: Not Applicable - Core Measures Any of the following diagnoses?: none Exam - Constitutional Vitals: Temp Pulse Resp BP Pulse Ox 97.9 F 77 23 149/77 95 11/21/21 08:00 11/21/21 09:00 11/21/21 09:00 11/21/21 09:00 11/21/21 09:00 General appearance: Present: no acute distress - EENT Eyes: Present: PERRL, EOM intact ENT: hearing intact, clear oral mucosa, dentition normal - Neck Neck: Present: normal ROM - Respiratory Respiratory effort: normal Respiratory: bilateral: diminished - Cardiovascular Rhythm: regular Heart Sounds: Present: S1 & S2 - Extremities Extremities: no ischemia, pulses intact, pulses symmetrical, No edema, normal temperature, normal color Peripheral Pulses: within normal limits - Abdominal General gastrointestinal: Present: soft, non-tender, non-distended, normal bowel sounds - Integumentary Integumentary: Present: clear, warm, dry - Musculoskeletal Musculoskeletal: strength equal bilaterally - Psychiatric Psychiatric: memory intact, cooperative - Neurologic Neurologic: CNII-XII intact, no focal deficits, moves all extremities - Allied Health Allied health notes reviewed: nursing, RT, social work Plan Activity: no restrictions Diet: diabetic Special Instructions: record blood sugar diary, smoking cessation Follow up with: FRANK JEFFREY MD [Primary Care Provider] - 7 Days IZABELLA BOLTON MD [Staff Physician] - 7 Days Prescriptions: Insulin NPH Hum/Reg Insulin Hm [Humulin 70-30 Vial] 30 units SC BID #1 vial
[2021-11-21 11:44] VITALS: BP 122/77
[2021-11-21 12:03] LABS: BUN/Creatinine Ratio 16; Blood Urea Nitrogen 16 mg/dL (9-20); Calcium 9.2 mg/dL (8.4-10.2); Hemolysis Index 4
== END 2021-11-21 12:05 | disposition home or self-care (01) | DRG 638 ==
LOC: ED 04:39 → CC1 10:38
PROVIDERS: ADMIT Internal Medicine; ATTEND Internal Medicine
DX: E10.10 Type 1 diabetes mellitus with ketoacidosis without coma (principal); E46 Unspecified protein-calorie malnutrition; E87.1 Hypo-osmolality and hyponatremia; Z68.26 Body mass index [BMI] 26.0-26.9, adult; F17.200 Nicotine dependence, unspecified, uncomplicated; E87.5 Hyperkalemia; Z91.19 Patient's noncompliance with other medical treatment and regimen; F10.10 Alcohol abuse, uncomplicated; Y90.9 Presence of alcohol in blood, level not specified; Z83.3 Family history of diabetes mellitus; Z82.49 Family history of ischemic heart disease and other diseases of the circulatory system
CPT/HCPCS: 36415; 80048; 80053; 80061; 81001; 82805; 82962; 83036; 83735; 84100; 85025; G0378; J3480; J3490; Q0162; Q9967; J1644; J1815; J7030

== ENCOUNTER 2022-03-12 13:12 | Emergency (ER) | payer OTHER ==
[2022-03-12 15:55] LABS: Hematocrit 41.7 % (35.5-45.6); Hemoglobin 13.8 gm/dl (11.8-15.2); Mean Corpuscular HGB Conc 33 % (32-34); Mean Corpuscular Volume 90 fl (84-94); Platelet Count 211 K/mm3 (140-440); Red Blood Count 4.61 M/mm3 (3.65-5.03); Red Cell Distribution Width 13.8 % (13.2-15.2)
[2022-03-12 16:02] LABS: BUN/Creatinine Ratio 19; Blood Urea Nitrogen 17 mg/dL (9-20); Calcium 9.3 mg/dL (8.4-10.2); Hemolysis Index 6
[2022-03-12 16:57] LABS: Basophils % (Manual) 0 % (0.0-1.8); Myelocytes # (Manual) 0.1 K/mm3; Total Cells Counted 100
[2022-03-12 16:58] LABS: Platelet Estimate Consistent w Auto
--- NOTE | 2022-03-12 23:07 | Emergency Department Report ---
ED Psych HPI - General Chief Complaint: Psych Stated Complaint: PYSCH EVAL Time Seen by Provider: 03/12/22 19:25 Source: patient Mode of arrival: Ambulatory - History of Present Illness Initial Comments: Patient is a 26-year-old male with history of schizophrenia, suicidal and ho micidal ideations presenting with complaint of suicidal ideation. States he has been staying at a boardinghouse and is currently homeless which is the main trigger for his thoughts. States he plan to walk out into oncoming traffic. - Related Data Home Medications Medication Instructions Recorded Confirmed Last Taken Insulin Regular, Human [Humulin R] See Protocol SC TID 11/20/21 11/20/21 Unknown Previous Rx's Medication Instructions Recorded Last Taken Type Acetaminophen [Acetaminophen TAB] 650 mg PO Q6H PRN tablet 11/21/21 Unknown Rx Insulin NPH Hum/Reg Insulin Hm 30 units SC BID #1 vial 11/21/21 Unknown Rx [Humulin 70-30 Vial] Allergies Allergy/AdvReac Type Severity Reaction Status Date / Time No Known Allergies Allergy Verified 11/20/21 04:49 ED Review of Systems ROS: Stated complaint: PYSCH EVAL Other details as noted in HPI Comment: All other systems reviewed and negative Constitutional: denies: chills, fever Respiratory: denies: cough, shortness of breath, wheezing Cardiovascular: denies: chest pain, palpitations Gastrointestinal: denies: abdominal pain, nausea, diarrhea Genitourinary: denies: urgency, dysuria Skin: denies: rash, lesions Neurological: denies: headache, weakness, paresthesias Psychiatric: suicidal thoughts ED Past Medical Hx - Past Medical History Hx Congestive Heart Failure: No Hx Diabetes: Yes Hx Asthma: No Hx COPD: No - Social History Smoking Status: Never Smoker - Medications Home Medications: Home Medications Medication Instructions Recorded Confirmed Last Taken Type Insulin Regular, Human [Humulin R] See Protocol MO TID 11/20/21 11/20/21 Unknown History Acetaminophen [Acetaminophen TAB] 650 mg PO Q6H PRN tablet 11/21/21 Unknown Rx Insulin NPH Hum/Reg Insulin Hm 30 units SC BID #1 vial 11/21/21 Unknown Rx [Humulin 70-30 Vial] ED Physical Exam - General Limitations: No Limitations General appearance: alert, in no apparent distress - Head Head exam: Present: atraumatic, normocephalic - Neck Neck exam: Present: normal inspection - Respiratory Respiratory exam: Present: normal lung sounds bilaterally. Absent: respiratory distress - Cardiovascular Cardiovascular Exam: Present: regular rate, normal rhythm, normal heart sounds - GI/Abdominal GI/Abdominal exam: Present: soft. Absent: distended, tenderness - Rectal Rectal exam: Present: deferred - Neurological Exam Neurological exam: Present: alert, oriented X3 - Psychiatric Psychiatric exam: Present: normal affect, normal mood, suicidal ideation - Skin Skin exam: Present: warm, dry, intact, normal color ED Course Vital Signs 03/12/22 14:23 Temperature 97.9 F Pulse Rate 82 Respiratory 18 Rate Blood Pressure 129/77 O2 Sat by Pulse 100 Oximetry ED Medical Decision Making - Lab Data Result diagrams: 03/12/22 15:09 03/12/22 15:09 Critical care attestation.: If time is entered above; I have spent that time in minutes in the direct care of this critically ill patient, excluding procedure time. ED Disposition Condition: Stable Referrals: FRANK JEFFREY MD [Primary Care Provider] - 3-5 Days
[2022-03-12] MEDS ORDERED: INSULIN NPH/REGULAR 70/30 INJ SUB-Q ONE (23:44)
--- NOTE | 2022-03-13 10:12 | Consultation ---
History of Present Illness - Reason for Consult Consult date: 03/13/22 Reason for consult: suicidal ideation - History of Present Psychiatric Illness HPI: Patient is a 26-year-old male with history of schizophrenia, suicidal and homicidal ideation presenting with complaint of suicidal ideation. States he has been staying at a boardinghouse and is currently homeless which is the main trigger for his thoughts. States he plan to walk out into oncoming traffic. The patient was seen today. he is calm, alert and oriented x3. He reports ongoing depression with intermittent suicidal idea x 4 years. He reports stressor as homelessness " I was hot and walking around." He endorses suicidal ideation with a plan to " run out in traffic." He admits having auditory hallucinations but states " unable to make out what the voices are saying." PAST PSYCHIATRIC HISTORY Diagnoses: schizophrenia Suicide attempts or Self-harm behavior: Yes Prior psychiatric hospitalizations: Yes Substance Abuse history: Marijuana Previous psychiatric medications tried:Risperidone Outpatient treatment: Unknown PAST MEDICAL HISTORY: none reported Family Psychiatric History: None reported or documented SOCIAL HISTORY Marital Status: Single Living Arrangements: Homeless Employment Status: unemployed Access to guns/weapons: Denies Education: Some college History of Abuse: none reported Legal History: none reported REVIEW OF SYSTEMS Constitutional: Negative for weight loss ENT: Negative for stridor Respiratory: Negative for cough or hemoptysis All other systems reviewed and are negative MENTAL STATUS EXAMINATION General Appearance and Behavior: Age appropriate, good hygiene, wearing appropriate clothes, fair eye contact, cooperative polite with questioning. Cooperation: Participating/engaged, guarded Psychomotor Behavior: unremarkable and within normal limits Mood: Depressed Affect and affective range: congruent with mood Thought Process: Goal directed Thought Content: suicidal/hallucinations Speech: Normal volume, Regular rate and rhythm, Suicidal Ideation:Yes Homicidal Ideation: Denies Hallucinations: Auditory Delusions: None Impulse Control: Questionable Insight and Judgment: Limited insight and poor judgment, Memory: Normal, Attention: Normal, Orientation: Alert, oriented, Assessment and Plan (1) Schizophrenia Treatment 1013 Continue home meds. Start Risperidone 1mg po Qhs Start Trazodone 50mg po QHS Sitter: Per primary Medical: Per primary Disposition: recommend acute inpatient psychiatric treatment. Will follow. Thanks Case staffed with Dr. Rivers Medications and Allergies Medications and Allergies Allergies Allergy/AdvReac Type Severity Reaction Status Date / Time No Known Allergies Allergy Verified 11/20/21 04:49 Home Medications Medication Instructions Recorded Confirmed Last Taken Type Insulin Regular, Human [Humulin R] See Protocol SC TID 11/20/21 11/20/21 Unknown History Acetaminophen [Acetaminophen TAB] 650 mg PO Q6H PRN tablet 11/21/21 Unknown Rx Insulin NPH Hum/Reg Insulin Hm 30 units SC BID #1 vial 11/21/21 Unknown Rx [Humulin 70-30 Vial] Mental Status Exam - Vital signs Last Vital Signs Temp 98.6 F 03/13/22 08:34 Pulse 64 03/13/22 08:34 Resp 16 03/13/22 08:34 BP 142/84 03/13/22 08:34 Pulse Ox 100 03/13/22 08:34 Results Result Diagrams: 03/12/22 15:09 03/12/22 15:09 Abnormal lab results 03/12/22 03/12/22 03/12/22 Range/Units 15:09 15:09 15:09 Seg Neuts % (Manual) (40.0-70.0) % Lymphocytes % (Manual) (13.4-35.0) % Seg Neutrophils # Man (1.8-7.7) K/mm3 Sodium 135 L (137-145) mmol/L Glucose 407 H (75-100) mg/dL POC Glucose (70-105) mg/dL Salicylates < 0.3 L (2.8-20.0) mg/dL Acetaminophen 5.0 L (10.0-30.0) ug/mL 03/12/22 03/13/22 03/13/22 Range/Units 15:09 01:24 02:07 Seg Neuts % (Manual) 28.0 L (40.0-70.0) % Lymphocytes % (Manual) 66.0 H (13.4-35.0) % Seg Neutrophils # Man 1.3 L (1.8-7.7) K/mm3 Sodium (137-145) mmol/L Glucose (75-100) mg/dL POC Glucose 59 L 166 H (70-105) mg/dL Salicylates (2.8-20.0) mg/dL Acetaminophen (10.0-30.0) ug/mL All other labs normal.
--- NOTE | 2022-03-13 11:50 | Emergency Department Report ---
Blank Doc - Documentation Documentation: 26-year-old male currently on 1013 for suicidal ideation. Patient is a diabet ic. I have we continued his recently prescribed insulin dose and ordered blood glucose checks q. ACH S. Urine collection still pending. Vital signs and nurses notes reviewed
[2022-03-13] MEDS ORDERED: INSULIN NPH/REGULAR 70/30 INJ SUB-Q SCH (12:00)
[2022-03-13 12:39] LABS: Bilirubin,Urine NEG (Negative); Blood,Urine NEG (Negative); Color,Urine Yellow (Yellow); Protein,Urine <15 mg/dL mg/dL (Negative); Urobilinogen,Urine < 2.0 mg/dL (<2.0)
[2022-03-13 12:45] LABS: Calcium Oxalate Crystals,Urine 1+; Mucus,Urine FEW /HPF
[2022-03-13 12:47] LABS: Benzodiazepines Screen,Urine Negative; Cocaine Screen,Urine Negative; Methadone Screen,Urine Negative; Opiate Screen,Urine Negative
[2022-03-13 13:01] LABS: Amphetamine Screen,Urine Positive; Cannabinoid Screen,Urine Positive
[2022-03-13 19:33] VITALS: BP 127/75
[2022-03-13] MEDS ORDERED: risperiDONE 1 MG TAB PO SCH (22:00)
[2022-03-13] MEDS ORDERED: traZODone 50 MG TAB PO SCH (22:00)
== END 2022-03-14 ==
LOC: ED 13:12 → EEVIPCON 13:12 → ED 03-14
DX: R45.851 Suicidal ideations (principal); Z20.822 Contact with and (suspected) exposure to COVID-19; F20.9 Schizophrenia, unspecified; E11.9 Type 2 diabetes mellitus without complications
CPT/HCPCS: 36415; 80048; 80307; 81001; 82962; 85007; 85025; 96372; 99284; U0003; 80320; Q0177; G0480; J1815

== ENCOUNTER 2022-05-26 23:07 | Inpatient (IN) | payer OTHER ==
[2022-05-27] MEDS ORDERED: SODIUM CHLORIDE 0.9% 1000 ML 1,000 ML ONE (00:14)
[2022-05-27] MEDS ORDERED: SODIUM CHLORIDE 0.9% 1000 ML 1,000 ML IV ONE (00:17)
[2022-05-27] MEDS ORDERED: ONDANSETRON 4 MG/2 ML INJ ONE (00:17)
[2022-05-27] MEDS ORDERED: ONDANSETRON 4 MG/2 ML INJ IV ONE (00:17)
--- NOTE | 2022-05-27 00:22 | Emergency Department Report ---
HPI - General Chief Complaint: Hyperglycemia Time Seen by Provider: 05/27/22 00:13 - [facility] HPI: Room 22 The patient is a 26-year-old male present with chief complaint nausea vomiting hyperglycemia. Patient states he is a type I diabetic and has been compliant with his medication however this morning at 09: 30 developed nausea and vomiting. Patient states at 1400 today he noticed blood sugar was elevated at 500 so he took 30 units of insulin which was the last of his remaining insulin. Patient states he contacted EMS with his continued nausea vomiting was transported to the ED. In the ED the patient only complains of nausea/vomiting and denies any other complaints ED Past Medical Hx - Past Medical History Previous Medical History?: Yes Hx Hypertension: Yes Hx Diabetes: Yes (Type I) - Surgical History Past Surgical History?: No - Family History Family history: no significant - Social History Smoking Status: Current Every Day Smoker (1/7 pack/day) Substance Use Type: Alcohol (Occasional), Marijuana - Medications Home Medications: Home Medications Medication Instructions Recorded Confirmed Last Taken Type Insulin Regular, Human [Humulin R] See Protocol SC TID 11/20/21 11/20/21 Unknown History Acetaminophen [Acetaminophen TAB] 650 mg PO Q6H PRN tablet 11/21/21 Unknown Rx Insulin NPH Hum/Reg Insulin Hm 30 units SC BID #1 vial 11/21/21 Unknown Rx [Humulin 70-30 Vial] ED Review of Systems ROS: Stated complaint: HIGH BLOOD SUGAR Other details as noted in HPI Constitutional: no symptoms reported Eyes: denies: eye pain ENT: denies: throat pain Respiratory: no symptoms reported Cardiovascular: denies: chest pain Endocrine: other (Hyperglycemia) Gastrointestinal: nausea, vomiting Genitourinary: denies: dysuria Musculoskeletal: denies: back pain Neurological: denies: headache Physical Exam - Physical Exam Vital Signs: Vital Signs 05/26/22 05/27/22 05/27/22 23:07 00:02 00:12 Temperature 98.7 F Pulse Rate 99 H 80 Respiratory 18 20 18 Rate Blood Pressure 133/77 Blood Pressure 133/78 [Right] O2 Sat by Pulse 100 100 98 Oximetry Physical Exam: GENERAL: The patient is well-developed well-nourished male lying on stretcher appearing uncomfortable. [] HEENT: Normocephalic. Atraumatic. Extraocular motions are intact. Patient has moist mucous membranes. NECK: Supple. Trachea midline CHEST/LUNGS: Clear to auscultation. There is no respiratory distress noted. HEART/CARDIOVASCULAR: Regular. There is no tachycardia. There is no gallop rub or murmur. ABDOMEN: Abdomen is soft, nontender. Patient has normal bowel sounds. There is no abdominal distention. SKIN: There is no rash. There is no edema. There is no diaphoresis. NEURO: The patient is awake, alert, and oriented. The patient is cooperative. The patient has no focal neurologic deficits. The patient has normal speech. GCS 15 MUSCULOSKELETAL: There is no evidence of acute injury. ED Course Vital Signs 05/26/22 05/27/22 05/27/22 23:07 00:02 00:12 Temperature 98.7 F Pulse Rate 99 H 80 Respiratory 18 20 18 Rate Blood Pressure 133/77 Blood Pressure 133/78 [Right] O2 Sat by Pulse 100 100 98 Oximetry ED Medical Decision Making - Lab Data Result diagrams: 05/27/22 00:22 05/27/22 00:22 Laboratory Tests 05/27/22 05/27/22 05/27/22 00:22 00:22 00:22 WBC 10.8 RBC 5.40 H Hgb 15.8 H Hct 49.3 H MCV 91 MCH 29 MCHC 32 RDW 14.0 Plt Count 267 Lymph % (Auto) 16.8 [place] % (Auto) 4.0 Eos % (Auto) 0.3 Baso % (Auto) 0.5 Lymph # (Auto) 1.8 [place] # (Auto) 0.4 Eos # (Auto) 0.0 Baso # (Auto) 0.1 Seg Neutrophils % 78.4 H Seg Neutrophils # 8.5 H VBG pH 7.176 L* Sodium 129 L Potassium 6.3 H* Chloride 89.3 L Carbon Dioxide 8 L* Anion Gap 38 BUN 18 Creatinine 1.4 H Estimated GFR > 60 BUN/Creatinine Ratio 13 Glucose 443 H Calcium 9.6 Lipase 11 L Urine Color Urine Turbidity Specific [place] (Man) Ur Protein (Man) Ur Ketones (Man) Ur Nitrite (Man) Ur Reducing Substances Urine Bilirubin (Man) Urine Ictotest Leukocyte Esterase (Man) Urine WBC (Auto) Urine RBC (Auto) Urine RBC (Manual) Urine Mucus 05/27/22 Unknown WBC RBC Hgb Hct MCV MCH MCHC RDW Plt Count Lymph % (Auto) [place] % (Auto) Eos % (Auto) Baso % (Auto) Lymph # (Auto) [place] # (Auto) Eos # (Auto) Baso # (Auto) Seg Neutrophils % Seg Neutrophils # VBG pH Sodium Potassium Chloride Carbon Dioxide Anion Gap BUN Creatinine Estimated GFR BUN/Creatinine Ratio Glucose Calcium Lipase Urine Color Yellow Urine Turbidity Slightly cloudy Specific [place] (Man) 1.030 Ur Protein (Man) 1+ Ur Ketones (Man) 4+ Ur Nitrite (Man) Negative Ur Reducing Substances Not Reportable Urine Bilirubin (Man) Negative Urine Ictotest Not Reportable Leukocyte Esterase (Man) Negative Urine WBC (Auto) < 1.0 Urine RBC (Auto) 1.0 Urine RBC (Manual) Negative Urine Mucus Few - Differential Diagnosis DKA, hyperglycemia Critical care attestation.: If time is entered above; I have spent that time in minutes in the direct care of this critically ill patient, excluding procedure time. ED Disposition Clinical Impression: DKA (diabetic ketoacidoses) Disposition: 09 ADMITTED INPATIENT Is pt being admited?: Yes Does the pt Need Aspirin: No Condition: Fair Instructions: Diabetic Ketoacidosis (ED) Time of Disposition: 01:42 (Care transferred to hospitalist (Dr. Chandra))
[2022-05-27 00:40] LABS: Basophils # (Auto) 0.1 K/mm3 (0.0-0.1); Basophils % (Auto) 0.5 % (0.0-1.8); Eosinophils % (Auto) 0.3 % (0.0-4.3); Hematocrit 49.3 % (35.5-45.6); Hemoglobin 15.8 gm/dl (11.8-15.2); Lymphocytes # (Auto) 1.8 K/mm3 (1.2-5.4); Lymphocytes % (Auto) 16.8 % (13.4-35.0); Mean Corpuscular HGB Conc 32 % (32-34); Mean Corpuscular Volume 91 fl (84-94); Monocytes # (Auto) 0.4 K/mm3 (0.0-0.8); Platelet Count 267 K/mm3 (140-440)
[2022-05-27 00:53] LABS: BUN/Creatinine Ratio 13; Blood Urea Nitrogen 18 mg/dL (9-20); Calcium 9.6 mg/dL (8.4-10.2); Hemolysis Index 12
[2022-05-27 01:15] LABS: Mucus,Urine FEW /HPF; WBC,Urine < 1.0 /HPF (0.0-6.0)
[2022-05-27 01:18] LABS: Color,Urine Yellow (Yellow)
[2022-05-27] MEDS ORDERED: METOCLOPRAMIDE 10 MG/2 ML INJ IV ONE (01:39)
[2022-05-27] MEDS ORDERED: INSULIN REGULAR, HUMAN 100 UNITS in SODIUM CHLORIDE 0.9% 99 ML IV SCH ×2 (02:00→05:00)
[2022-05-27 03:01] LABS: BUN/Creatinine Ratio 14; Blood Urea Nitrogen 20 mg/dL (9-20); Hemolysis Index 9
[2022-05-27] MEDS ORDERED: ONDANSETRON 4 MG/2 ML INJ IV PRN (04:02)
[2022-05-27] MEDS ORDERED: ACETAMINOPHEN 325 MG TAB PO PRN (04:02)
[2022-05-27] MEDS ORDERED: DEXTROSE 50% IN WATER (25GM) 50 ML SYRINGE IV PRN (04:02)
[2022-05-27] MEDS ORDERED: MORPHINE 4 MG/1 ML INJ IV PRN (04:02)
[2022-05-27] MEDS ORDERED: MORPHINE 2 MG/1 ML INJ IV PRN (04:02)
[2022-05-27] MEDS ORDERED: ALBUTEROL 2.5 MG/3 ML NEBU IH PRN (04:02)
--- NOTE | 2022-05-27 04:09 | History and Physical Report ---
History of Present Illness Date of examination: 05/27/22 Date of admission: 05/27/22 Chief complaint: Hyperglycemia History of present illness: 26-year-old male present with chief complaint nausea vomiting hyperglycemia. Patient states he is a type I diabetic and has been compliant with his medication however this morning at 09: 30 developed nausea and vomiting. Patient states at 1400 today he noticed blood sugar was elevated at 500 so he took 30 units of insulin which was the last of his remaining insulin. Patient states he contacted EMS with his continued nausea vomiting was transported to the ED. In the ED the patient only complains of nausea/vomiting and denies any other complaints. In the emergency room patient is found to have DKA. Patient blood glucose is 443, bicarb is 8, anion gap 38 potassium 6.3 and sodium 129. We will admit the patient to the ICU put the patient on IV fluid insulin drip will consult critical care evaluation Past History Past Medical History: diabetes, hypertension Past Surgical History: No surgical history Social history: smoking Family history: diabetes Medications and Allergies Allergies Allergy/AdvReac Type Severity Reaction Status Date / Time No Known Allergies Allergy Verified 11/20/21 04:49 Home Medications Medication Instructions Recorded Confirmed Last Taken Type Insulin Regular, Human [Humulin R] See Protocol SC TID 11/20/21 11/20/21 Unknown History Acetaminophen [Acetaminophen TAB] 650 mg PO Q6H PRN tablet 11/21/21 Unknown Rx Insulin NPH Hum/Reg Insulin Hm 30 units SC BID #1 vial 11/21/21 Unknown Rx [Humulin 70-30 Vial] Active Meds: Active Medications Insulin Human Regular 100 (units/ Sodium Chloride) 100 mls @ 6 mls/hr IV TITR LENORA; Protocol Last Titration: 05/27/22 03:24 Dose: 7 units/hr, 7 mls/hr Review of Systems All systems: negative Gastrointestinal: abdominal pain, vomiting Exam - Constitutional Vitals: Temp Pulse Resp BP Pulse Ox 97.5 F L 107 H 24 125/88 96 05/27/22 02:21 05/27/22 03:21 05/27/22 03:21 05/27/22 03:21 05/27/22 03:21 General appearance: Present: no acute distress, well-nourished - EENT Eyes: Present: PERRL ENT: hearing intact, clear oral mucosa - Neck Neck: Present: supple, normal ROM - Respiratory Respiratory effort: normal Respiratory: bilateral: CTA - Cardiovascular Heart Sounds: Present: S1 & S2. Absent: rub, click - Extremities Extremities: pulses symmetrical, No edema Peripheral Pulses: within normal limits - Abdominal General gastrointestinal: Present: soft, non-tender, non-distended, normal bowel sounds Male genitourinary: Present: normal - Integumentary Integumentary: Present: clear, warm, dry - Musculoskeletal Musculoskeletal: gait normal, strength equal bilaterally - Psychiatric Psychiatric: appropriate mood/affect, intact judgment & insight - Neurologic Neurologic: CNII-XII intact, moves all extremities Results - Labs CBC & Chem 7: 05/27/22 00:22 05/27/22 02:28 Labs: Laboratory Last Values WBC 10.8 K/mm3 (4.5-11.0) 05/27/22 00:22 RBC 5.40 M/mm3 (3.65-5.03) H 05/27/22 00:22 Hgb 15.8 gm/dl (11.8-15.2) H 05/27/22 00:22 Hct 49.3 % (35.5-45.6) H 05/27/22 00:22 MCV 91 fl (84-94) 05/27/22 00:22 MCH 29 pg (28-32) 05/27/22 00:22 MCHC 32 % (32-34) 05/27/22 00:22 RDW 14.0 % (13.2-15.2) 05/27/22 00:22 Plt Count 267 K/mm3 (140-440) 05/27/22 00:22 Lymph % (Auto) 16.8 % (13.4-35.0) 05/27/22 00:22 [place] % (Auto) 4.0 % (0.0-7.3) 05/27/22 00:22 Eos % (Auto) 0.3 % (0.0-4.3) 05/27/22 00:22 Baso % (Auto) 0.5 % (0.0-1.8) 05/27/22 00:22 Lymph # (Auto) 1.8 K/mm3 (1.2-5.4) 05/27/22 00:22 [place] # (Auto) 0.4 K/mm3 (0.0-0.8) 09/11/22 00:22 Eos # (Auto) 0.0 K/mm3 (0.0-0.4) 05/27/22 00:22 Baso # (Auto) 0.1 K/mm3 (0.0-0.1) 05/27/22 00:22 Seg Neutrophils % 78.4 % (40.0-70.0) H 05/27/22 00:22 Seg Neutrophils # 8.5 K/mm3 (1.8-7.7) H 05/27/22 00:22 VBG pH 7.176 (7.320-7.420) L* 05/27/22 00:22 Sodium 130 mmol/L (137-145) L 05/27/22 02:28 Potassium 6.4 mmol/L (3.6-5.0) H* 05/27/22 02:28 Chloride 92.3 mmol/L (98-107) L 05/27/22 02:28 Carbon Dioxide 9 mmol/L (22-30) L* 05/27/22 02:28 Anion Gap 35 mmol/L 05/27/22 02:28 BUN 20 mg/dL (9-20) 05/27/22 02:28 Creatinine 1.4 mg/dL (0.8-1.3) H 05/27/22 02:28 Estimated GFR > 60 ml/min 05/27/22 02:28 BUN/Creatinine Ratio 14 % 05/27/22 02:28 Glucose 438 mg/dL (75-100) H 05/27/22 02:28 Calcium 9.0 mg/dL (8.4-10.2) 05/27/22 02:28 Phosphorus 4.90 mg/dL (2.5-4.5) H 05/27/22 02:28 Magnesium 1.90 mg/dL (1.7-2.3) 05/27/22 02:28 Lipase 11 units/L (13-60) L 05/27/22 00:22 Urine Color Yellow (Yellow) 05/27/22 Unknown Urine Turbidity Slightly cloudy (Clear) 05/27/22 Unknown Specific [place] (Man) 1.030 (1.003-1.030) 05/27/22 Unknown Ur Protein (Man) 1+ mg/dL (Negative) 05/27/22 Unknown Ur Ketones (Man) 4+ (Negative) 05/27/22 Unknown Ur Nitrite (Man) Negative (Negative) 05/27/22 Unknown Ur Reducing Substances Not Reportable 05/27/22 Unknown Urine Bilirubin (Man) Negative (Negative) 05/27/22 Unknown Urine Ictotest Not Reportable 05/27/22 Unknown Leukocyte Esterase (Man) Negative (Negative) 05/27/22 Unknown Urine WBC (Auto) < 1.0 /HPF (0.0-6.0) 05/27/22 Unknown Urine RBC (Auto) 1.0 /HPF (0.0-6.0) 05/27/22 Unknown Urine RBC (Manual) Negative (Negative) 05/27/22 Unknown Urine Mucus Few /HPF 05/27/22 Unknown Assessment and Plan VTE prophylaxis?: Mechanical Plan of care discussed with patient/family: Yes - Patient Problems (1) DKA (diabetic ketoacidoses) Current Visit: Yes Status: Acute Plan to address problem: Admit the patient to the ICU. NPO. Half-normal saline at the rate of 125 cc/h. Insulin drip as per protocol. Serial BMP. Diabetic education. Critical care evaluation (2) Hyperkalemia Current Visit: No Status: Acute Plan to address problem: Calcium gluconate 1 g IV x1 dose. Insulin drip. IV fluid half-normal saline at the rate of 125 cc/h. Serial BMP (3) Hypertension Current Visit: Yes Status: Acute Plan to address problem: Hydralazine 10 mg IV every 6 hours as needed. We will continue the home medication. (4) Metabolic acidosis Current Visit: No Status: Acute Plan to address problem: NPO. Half-normal saline at the rate of 125 cc/h. Insulin drip as per protoc ol. Serial BMP. Diabetic education. Critical care evaluation (5) Tobacco abuse Current Visit: No Status: Acute Plan to address problem: We counseled regarding quitting smoking. We put the patient on nicotine patch (6) DVT prophylaxis Current Visit: No Status: Acute Plan to address problem: SCD for DVT prophylaxis. Pepcid 20 mg IV every 12 hours for GI prophylaxis. Patient is a full code
[2022-05-27] MEDS ORDERED: SODIUM CHLORIDE 0.45% 1000 ML 1,000 ML IV SCH (05:00)
[2022-05-27 05:37] LABS: BUN/Creatinine Ratio 14; Blood Urea Nitrogen 20 mg/dL (9-20); Calcium 8.8 mg/dL (8.4-10.2); Hemolysis Index 9
[2022-05-27] MEDS: D5W/0.45% NACL/KCL 20 MEQ 20 MEQ/1,000 ML BAG IV SCH ×2 (05:56→14:00)
[2022-05-27] MEDS: IPRATROPIUM/ALBUTEROL SULFATE 3 ML AMPUL.NEB IH SCH ×3 (08:00→20:39)
[2022-05-27 08:33] LABS: BUN/Creatinine Ratio 14; Blood Urea Nitrogen 17 mg/dL (9-20); Calcium 9.1 mg/dL (8.4-10.2); Hemolysis Index 6
--- NOTE | 2022-05-27 10:19 | Progress Note ---
Assessment and Plan Assessment and plan: History of present illness: 26-year-old male present with chief complaint nausea vomiting hyperglycemia. Patient states he is a type I diabetic and has been compliant with his medication however this morning at 09: 30 developed nausea and vomiting. Patient states at 1400 today he noticed blood sugar was elevated at 500 so he took 30 units of insulin which was the last of his remaining insulin. Patient states he contacted EMS with his continued nausea vomiting was transported to the ED. In the ED the patient only complains of nausea/vomiting and denies any other complaints. In the emergency room patient is found to have DKA. Patient blood glucose is 443, bicarb is 8, anion gap 38 potassium 6.3 and sodium 129. We will admit the patient to the ICU put the patient on IV fluid insulin drip will consult critical care evaluation Hospital course: 05/27: BMP demonstrates improvement in GAP (currently 21). Trend serial bmp. Continue IV fluids, IV insulin. Improvement in kidney fx noted with rehydration. If anion gap closes (<14), can transition to subq insulin, give diabetic diet and transfer to floor Assessment and Plan: #Diabetic ketoacidosis #Type 2 diabetes with hyperglycemia - A, BG in 438, ketonuria 4+, VBG pH: 7.176 - weakness, states she is compliant with meds. - DKA protocol: IV insulin, IVF. - NPO until AG closes - once AG closed (< 14), can start lantus 10 mg subq. Please run insulin gtt 1hr after lantus admin. Can initiate diabetic diet as well - accuchecks q1 hr until AG closed - BMP q4hr until AG closed -[facility] consultation #Acute kidney injury #Hyperkalemia #Metabolic acidosis - Admission Cr: 1.4 - etiology: dehydration - aggressive IVF rehydration - avoid nephrotoxic agents - monitor I/O's - renal adjust medications - daily renal profile #Hypertension - prn labetalol #Nicotine abuse The high probability of a clinically significant, sudden or life threatening deterioration of the [multi] system(s) required my full and direct attention, intervention and personal management. The aggregate critical care time was [60] minutes. This time is in addition to time spent performing reported procedures but includes the following: [x] Data Review and interpretation [x] Patient assessment and monitoring of vital signs [x] Documentation [x] Medication orders and management History Interval history: NO complaints and not in any distress this AM. Patient has been out of insulin for a few days per my conversation. Had been hosp for dka approx 4 months ago per patient. Hospitalist Physical - Physical exam Narrative exam: Physical Exam: VITAL SIGNS: Reviewed. GENERAL: The patient appears normally developed, Vital signs as documented. HEAD: No signs of head trauma. EYES: Pupils are equal. Extraocular motions intact. EARS: Hearing grossly intact. MOUTH: Oropharynx is normal. NECK: No adenopathy, no JVD. CHEST: Chest with clear breath sounds bilaterally. No wheezes, rales, or rhonchi. CARDIAC: Regular rate and rhythm. S1 and S2, without murmurs, gallops, or rubs. VASCULAR: No Edema. Peripheral pulses normal and equal in all extremities. ABDOMEN: Soft, non tender and non distended. No rebound or guarding, and no masses palpated. Bowel Sounds normal. MUSCULOSKELETAL: Good range of motion of all major joints. Extremities without clubbing, cyanosis or edema. NEUROLOGIC EXAM: Alert and oriented x 4. no focal sensory or strength deficits. PSYCHIATRIC: Mood normal. SKIN: detail exam as documented in skin assessment - Constitutional Vitals: Temp Pulse Resp BP Pulse Ox 97.5 F L 99 H 17 139/84 96 05/27/22 02:21 05/27/22 09:10 05/27/22 09:10 05/27/22 09:10 05/27/22 09:10 General appearance: Present: no acute distress, well-nourished Results - Labs CBC & Chem 7: 05/27/22 00:22 05/27/22 06:15 Labs: Laboratory Last Values WBC 10.8 K/mm3 (4.5-11.0) 05/27/22 00:22 RBC 5.40 M/mm3 (3.65-5.03) H 05/27/22 00:22 Hgb 15.8 gm/dl (11.8-15.2) H 05/27/22 00:22 Hct 49.3 % (35.5-45.6) H 05/27/22 00:22 MCV 91 fl (84-94) 05/27/22 00:22 MCH 29 pg (28-32) 05/27/22 00:22 MCHC 32 % (32-34) 05/27/22 00:22 RDW 14.0 % (13.2-15.2) 05/27/22 00:22 Plt Count 267 K/mm3 (140-440) 05/27/22 00:22 Lymph % (Auto) 16.8 % (13.4-35.0) 05/27/22 00:22 [place] % (Auto) 4.0 % (0.0-7.3) 05/27/22 00:22 Eos % (Auto) 0.3 % (0.0-4.3) 05/27/22 00:22 Baso % (Auto) 0.5 % (0.0-1.8) 05/27/22 00:22 Lymph # (Auto) 1.8 K/mm3 (1.2-5.4) 05/27/22 00:22 [place] # (Auto) 0.4 K/mm3 (0.0-0.8) 05/27/22 00:22 Eos # (Auto) 0.0 K/mm3 (0.0-0.4) 05/27/22 00:22 Baso # (Auto) 0.1 K/mm3 (0.0-0.1) 05/27/22 00:22 Seg Neutrophils % 78.4 % (40.0-70.0) H 05/27/22 00:22 Seg Neutrophils # 8.5 K/mm3 (1.8-7.7) H 05/27/22 00:22 VBG pH 7.176 (7.320-7.420) L* 05/27/22 00:22 Sodium 132 mmol/L (137-145) L 05/27/22 06:15 Potassium 5.2 mmol/L (3.6-5.0) H 05/27/22 06:15 Chloride 96.7 mmol/L (98-107) L 05/27/22 06:15 Carbon Dioxide 15 mmol/L (22-30) L 05/27/22 06:15 Anion Gap 26 mmol/L 05/27/22 06:15 BUN 17 mg/dL (9-20) 05/27/22 06:15 Creatinine 1.2 mg/dL (0.8-1.3) 05/27/22 06:15 Estimated GFR > 60 ml/min 05/27/22 06:15 BUN/Creatinine Ratio 14 % 05/27/22 06:15 Glucose 208 mg/dL (75-100) H 05/27/22 06:15 POC Glucose 246 mg/dL (70-105) H 05/27/22 05:47 Calcium 9.1 mg/dL (8.4-10.2) 05/27/22 06:15 Phosphorus 4.30 mg/dL (2.5-4.5) 05/27/22 04:50 Magnesium 2.10 mg/dL (1.7-2.3) 05/27/22 04:50 Lipase 11 units/L (13-60) L 05/27/22 00:22 Urine Color Yellow (Yellow) 05/27/22 Unknown Urine Turbidity Slightly cloudy (Clear) 05/27/22 Unknown Specific [place] (Man) 1.030 (1.003-1.030) 05/27/22 Unknown Ur Protein (Man) 1+ mg/dL (Negative) 05/27/22 Unknown Ur Ketones (Man) 4+ (Negative) 05/27/22 Unknown Ur Nitrite (Man) Negative (Negative) 05/27/22 Unknown Ur Reducing Substances Not Reportable 05/27/22 Unknown Urine Bilirubin (Man) Negative (Negative) 05/27/22 Unknown Urine Ictotest Not Reportable 05/27/22 Unknown Leukocyte Esterase (Man) Negative (Negative) 05/27/22 Unknown Urine WBC (Auto) < 1.0 /HPF (0.0-6.0) 05/27/22 Unknown Urine RBC (Auto) 1.0 /HPF (0.0-6.0) 05/27/22 Unknown Urine RBC (Manual) Negative (Negative) 05/27/22 Unknown Urine Mucus Few /HPF 05/27/22 Unknown Active Medications - Current Medications Current Medications: Generic Name Dose Route Start Last Admin Trade Name Freq PRN Reason Stop Dose Admin Acetaminophen 650 mg 05/27/22 04:02 Acetaminophen 325 Mg Tab PO Q4H PRN Pain MILD(1-3)/Fever >100.5/HERRON Albuterol 2.5 mg 05/27/22 04:02 Albuterol 2.5 Mg/3 Ml Nebu IH Q3HRT PRN Shortness Of Breath Albuterol/Ipratropium 1 ampul 05/27/22 08:00 Ipratropium/Albuterol Sulfate 3 Ml Ampul.Neb IH Q6HRT LENORA Dextrose 0 ml 05/27/22 04:02 Dextrose 50% In Water (25gm) 50 Ml Syringe IV Q30MIN PRN Hypoglycemia Protocol Famotidine 20 mg 05/27/22 10:00 Famotidine 20 Mg/2 Ml Inj IV BID [facility] Insulin Human Regular 100 100 mls @ 6 mls/hr 05/27/22 02:00 05/27/22 08:59 units/ Sodium Chloride IV 2.5 units/hr TITR LENORA 2.5 mls/hr Titration Protocol 6 UNITS/HR Sodium Chloride 1,000 mls @ 125 mls/hr 05/27/22 05:00 Nacl 0.45% 1000 Ml IV DIRECT LENORA Potassium Chloride/Dextrose/Sod Cl 20 meq in 1,000 mls @ 125 mls/hr 05/27/22 05:00 05/27/22 05:56 D5w/0.45% Nacl/Kcl 20 Meq IV 125 mls/hr DIRECT LENORA Administration Morphine Sulfate 2 mg 05/27/22 04:02 Morphine 2 Mg/1 Ml Inj IV Q4H PRN Pain, Moderate (4-6) Morphine Sulfate 4 mg 05/27/22 04:02 Morphine 4 Mg/1 Ml Inj IV Q4H PRN Pain , Severe (7-10) Ondansetron HCl 4 mg 05/27/22 04:02 Ondansetron 4 Mg/2 Ml Inj IV Q8H PRN Nausea And Vomiting Sodium Chloride 10 ml 05/27/22 10:00 Sodium Chloride 0.9% 10 Ml Flush Syringe IV BID LENORA Sodium Chloride 10 ml 05/27/22 04:02 Sodium Chloride 0.9% 10 Ml Flush Syringe IV PRN PRN LINE FLUSH
[2022-05-27] MEDS: FAMOTIDINE 20 MG/2 ML INJ IV SCH ×2 (10:38→22:00)
--- NOTE | 2022-05-27 12:27 | Event Note ---
Date: 05/27/22 26 y/o male admitted with DKA 1. Continue insulin drip until Anion Gap has closed 2. NPO 3. IVFS, once sugar is below 250, change to D5 with or without K replacement
[2022-05-27 13:12] LABS: BUN/Creatinine Ratio 13; Blood Urea Nitrogen 15 mg/dL (9-20); Calcium 8.7 mg/dL (8.4-10.2); Hemolysis Index 3
[2022-05-27] MEDS ORDERED: INSULIN GLARGINE 100 UNITS/ML SUB-Q ONE (17:06)
[2022-05-27 20:53] LABS: BUN/Creatinine Ratio 12; Blood Urea Nitrogen 12 mg/dL (9-20); Calcium 9.2 mg/dL (8.4-10.2); Hemolysis Index 6
[2022-05-27] MEDS: INSULIN LISPRO 100 UNIT/ML SUB-Q SCH (22:30)
[2022-05-28] MEDS: IPRATROPIUM/ALBUTEROL SULFATE 3 ML AMPUL.NEB IH SCH ×2 (01:10→09:04)
[2022-05-28 05:28] LABS: Basophils % (Auto) 0.5 % (0.0-1.8); Eosinophils # (Auto) 0.3 K/mm3 (0.0-0.4); Eosinophils % (Auto) 2.8 % (0.0-4.3); Hematocrit 46.2 % (35.5-45.6); Hemoglobin 15.6 gm/dl (11.8-15.2); Lymphocytes # (Auto) 2.6 K/mm3 (1.2-5.4); Lymphocytes % (Auto) 28.3 % (13.4-35.0); Mean Corpuscular HGB Conc 34 % (32-34); Mean Corpuscular Volume 88 fl (84-94); Monocytes # (Auto) 0.7 K/mm3 (0.0-0.8); Monocytes % (Auto) 7.6 % (0.0-7.3); Platelet Count 256 K/mm3 (140-440); Red Blood Count 5.28 M/mm3 (3.65-5.03)
[2022-05-28 05:41] LABS: BUN/Creatinine Ratio 11; Blood Urea Nitrogen 10 mg/dL (9-20); Calcium 9.3 mg/dL (8.4-10.2); Hemolysis Index 1
--- NOTE | 2022-05-28 07:47 | Discharge Summary ---
Providers - Providers Date of Admission: 05/27/22 04:02 Date of discharge: 05/28/22 Attending physician: KAREN LI MD 05/27/22 01:39 Consult to Physician [CONS] Urgent Comment: Consulting Provider: IZABELLA BOLTON Physician Instructions: Reason For Exam: ICU admit/DKA 05/27/22 04:02 Consult to Dietitian/Nutrition [CONS] Routine Physician Instructions: Reason For Exam: DKA Reason for Consult: Nutrition Recommendations Reason for Consult: Diet education Primary care physician: APPOINTMENT MANAGER Hospitalization Reason for admission: nausea, vomiting Condition: Fair Hospital course: History of present illness: 26-year-old male present with chief complaint nausea vomiting hyperglycemia. Patient states he is a type I diabetic and has been compliant with his medication however this morning at 09: 30 developed nausea and vomiting. Patient states at 1400 today he noticed blood sugar was elevated at 500 so he took 30 units of insulin which was the last of his remaining insulin. Patient states he contacted EMS with his continued nausea vomiting was transported to the ED. In the ED the patient only complains of nausea/vomiting and denies any other complaints. In the emergency room patient is found to have DKA. Patient blood glucose is 443, bicarb is 8, anion gap 38 potassium 6.3 and sodium 129. We will admit the patient to the ICU put the patient on IV fluid insulin drip will consult critical care evaluation Hospital course: 05/27: BMP demonstrates improvement in GAP (currently 21). Trend serial bmp. Continue IV fluids, IV insulin. Improvement in kidney fx noted with rehydration. If anion gap closes (<14), can transition to subq insulin, give diabetic diet and transfer to floor 05/28: Anion gap closed, blood sugars well controlled. patient asympatomatic on encounter. Plan for discharge with outpatient instructions to follow up with primary care physician. Discharge medications: NPH insulin 70/30 30 units subq bid. Electronically transmitted to pharmacy. Assessment and Plan: #Diabetic ketoacidosis #Type 2 diabetes with hyperglycemia - A, BG in 438, ketonuria 4+, VBG pH: 7.176 - weakness, states she is compliant with meds. - DKA protocol: IV insulin, IVF. - NPO until AG closes - once AG closed (< 14), can start lantus 10 mg subq. Please run insulin gtt 1hr after lantus admin. Can initiate diabetic diet as well - accuchecks q1 hr until AG closed - BMP q4hr until AG closed -CCM consultation #Acute kidney injury #Hyperkalemia #Metabolic acidosis - Admission Cr: 1.4 - etiology: dehydration - aggressive IVF rehydration - avoid nephrotoxic agents - monitor I/O's - renal adjust medications - daily renal profile #Hypertension - prn labetalol #Nicotine abuse Disposition: HOME / SELF CARE / HOMELESS Final Discharge Diagnosis (Prints w/discharge instructions): diabetic ketoacidosis Time spent for discharge: 35 Core Measure Documentation - Palliative Care Palliative Care/ Comfort Measures: Not Applicable - Core Measures Any of the following diagnoses?: none Exam - Physical Exam Narrative exam: Physical Exam: VITAL SIGNS: Reviewed. GENERAL: The patient appears normally developed, Vital signs as documented. HEAD: No signs of head trauma. EYES: Pupils are equal. Extraocular motions intact. EARS: Hearing grossly intact. MOUTH: Oropharynx is normal. NECK: No adenopathy, no JVD. CHEST: Chest with clear breath sounds bilaterally. No wheezes, rales, or rhonchi. CARDIAC: Regular rate and rhythm. S1 and S2, without murmurs, gallops, or rubs. VASCULAR: No Edema. Peripheral pulses normal and equal in all extremities. ABDOMEN: Soft, non tender and non distended. No rebound or guarding, and no masses palpated. Bowel Sounds normal. MUSCULOSKELETAL: Good range of motion of all major joints. Extremities without clubbing, cyanosis or edema. NEUROLOGIC EXAM: Alert and oriented x 4. no focal sensory or strength deficits. PSYCHIATRIC: Mood normal. SKIN: detail exam as documented in skin assessment - Constitutional Vitals: Temp Pulse Resp BP Pulse Ox 99.2 F 85 18 153/78 100 05/28/22 03:38 05/28/22 03:38 05/28/22 05:14 05/28/22 03:38 05/28/22 05:14 Plan Follow up with: PRIMARY CARE, [Primary Care Provider] - 7 Days Prescriptions: Insulin NPH Hum/Reg Insulin Hm [Humulin 70-30 Vial] 30 units SC BID 30 Days #4 vial
[2022-05-28] MEDS: INSULIN LISPRO 100 UNIT/ML SUB-Q SCH ×2 (09:15→12:36)
[2022-05-28] MEDS: FAMOTIDINE 20 MG/2 ML INJ IV SCH (09:20)
[2022-05-28 12:30] VITALS: BP 140/63
[2022-05-28] MEDS ORDERED: FAMOTIDINE 20 MG TAB PO SCH (22:00)
== END 2022-05-28 12:55 | disposition home or self-care (01) | DRG 638 ==
LOC: ED 23:07 → CC1 05-27 04:02 → 3A 05-27 17:27
PROVIDERS: ADMIT Hospitalist; ATTEND Internal Medicine
DX: E11.10 Type 2 diabetes mellitus with ketoacidosis without coma (principal); N17.9 Acute kidney failure, unspecified; E87.5 Hyperkalemia; I10 Essential (primary) hypertension; F17.200 Nicotine dependence, unspecified, uncomplicated; Z71.6 Tobacco abuse counseling; Z83.3 Family history of diabetes mellitus
CPT/HCPCS: 36415; 80048; 81001; 82805; 82962; 83690; 83735; 84100; 85025; 94640; 96374; 96375; 99285; G0378; J3480; J3490; Q9967; J1815; J2405; J2765; J7030